=== PATIENT | female | born 1940 | race Caucasian/White ===

== ENCOUNTER 2017-03-10 14:47 | Emergency (ER) | payer OTHER, MEDICARE ==
[~2017-03-10] VITALS: Ht 152.4 cm; Wt 53.0 kg
[~2017-03-10 14:47] MED LIST: ADVA115A PO; ALBU8I INH; ASPI81TA82 PO; ATOR10TA PO; CEFU1TAB42 PO; FURO20 PO; METO25 PO; POTA-243 PO; PRED10PA PO; PRIN5TAB PO; RANI150T PO; THYROID PILL PO; Z.0.OXYGEN INH; [UNRECOGNIZED DRUG - CODE] NEB
[2017-03-10 14:50] VITALS: BP 130/58; PULSE 85; RESP 18; TEMP 97.8; O2SAT 93
[2017-03-10] MEDS ORDERED: LISI-519 PO (15:21)
[2017-03-10] MEDS ORDERED: POTA10CA PO (15:21)
[2017-03-10] MEDS ORDERED: METO25TA3 PO (15:21)
[2017-03-10] MEDS ORDERED: FURO20TA PO (15:21)
[2017-03-10] MEDS ORDERED: ASPI81CH CHEW (15:21)
[2017-03-10] MEDS ORDERED: ATOR20TA15 PO (15:21)
[2017-03-10] MEDS ORDERED: RANI150T PO (15:21)
[2017-03-10] MEDS ORDERED: VENTAER INH (15:21)
[2017-03-10] MEDS ORDERED: ADVA115A INH (15:21)
[2017-03-10 15:29] VITALS: O2SAT 98
[2017-03-10] MEDS ORDERED: SODIUM CHLORIDE 0.9% FLUSH 10 ML FLUSH IVF PRN (15:30)
[2017-03-10] MEDS ORDERED: RESP: ALBUTEROL 2.5 MG/IPRATROPIUM 0.5 MG NEB (SCH) INH ONE (15:30)
[2017-03-10] MEDS ORDERED: methylPREDNISolone SOD SUCC 125 MG/2 ML VIAL IVP ONE (15:30)
[2017-03-10 15:35] VITALS: BP 130/56; PULSE 69; RESP 20; O2SAT 99
--- NOTE | 2017-03-10 15:38 | PD ---
HPI Chief Complaint: Respiratory Symptoms Time Seen by Provider: 15:11 Travel History International Travel<30 days: No Contact w/Intl Traveler<30days: No Traveled to known affect area: No History of Present Illness HPI The patient is 77 years old. She complains of shortness of breath. Orthopnea is reported. Dyspnea on exertion is reported. A chronic cough is reported. She has no chest pain. She's had no fever. She has COPD and uses oxygen at times. She reports a history of CHF and reports using "a water pill." Compliance with medications is reported. She was seen by Dr. Novak this morning and an echocardiogram was done however she does not know the results. She was advised to come to the ER by Dr. Novak. She states she is worried about a CHF exacerbation. PFSH Past Medical History Arthritis: Yes Asthma: No Autoimmune Disease: No Anxiety: No Depression: No Heart Rhythm Problems: No Cancer: No Cardiovascular Problems: Yes (HIGH CHOLERSTEROL) High Cholesterol: Yes Chest Pain: No Congestive Heart Failure: Yes COPD: Yes (2L O2 dependent at home) Cerebrovascular Accident: No Coronary Artery Disease: No Diabetes: No Diminished Hearing: Yes ([place]) Endocrine: No Gastrointestinal Disorders: Yes GERD: Yes Genitourinary: No Hiatal Hernia: No Immune Disorder: No Musculoskeletal: Yes Neurologic: Yes Psychiatric: No Reproductive: No Respiratory: Yes (COPD) Migraines: No Seizures: No Sickle Cell Disease: No Sleep Apnea: No Thyroid Disease: Yes Ulcer: No Menopausal: Yes Past Surgical History Abdominal Surgery: Yes (APPENDIX, GALL BLADDER) AICD: No Appendectomy: Yes Arteriovenous Shunt: No Cardiac Surgery: Yes (bilateral leg veins stripped) Cholecystectomy: Yes Ear Surgery: No Endocrine Surgery: No Eye Surgery: Yes (EYE SURGERY A CHILD, cataracts) Genitourinary Surgery: Yes (BLADDER REPAIR) Gynecologic Surgery: Yes (TUBAL) Insulin Pump: No Joint Replacement: No Oral Surgery: Yes (TONSILS REMOVED) Pacemaker: No Thoracic Surgery: No Tonsillectomy: Yes Other Surgery: Yes Social History Alcohol Use: No Tobacco Use: Yes (07/27 PPD) Substance Use: No Allergies-Medications (Allergen,Severity, Reaction): Coded Allergies: tetanus toxoid, adsorbed (Unverified Allergy, Intermediate, RASH, 03/10/17) shellfish derived (Verified Allergy, Unknown, 03/10/17) Uncoded Allergies: MUSCLE RELAXERS (Allergy, Intermediate, RASH, 11/19/14) . Reported Meds & Prescriptions Reported Meds & Active Scripts Active Prednisone 20 Mg Tab 60 Mg PO DAILY 3 Days Reported Advair Hfa 12 GM Inh (Fluticasone-Salmeterol 12 GM Inh) 115-21 Mcg/Act Aer 2 Puff INH BID Ventolin Hfa 18 GM Inh (Albuterol Sulfate) 90 Mcg/Act Aer 1 Puff INH Q4H PRN Potassium Chloride ER (Potassium Chloride) 10 Meq Cap 10 Meq PO DAILY Atorvastatin (Atorvastatin Calcium) 20 Mg Tab 20 Mg PO BID Metoprolol Tartrate 25 Mg Tab 12.5 Mg PO BID Aspirin 81 Mg Chew 81 Mg CHEW DAILY Ranitidine (Ranitidine HCl) 150 Mg Tab 150 Mg PO DAILY Furosemide 20 Mg Tab 20 Mg PO DAILY Lisinopril 5 Mg Tab 5 Mg PO DAILY Review of Systems Except as stated in HPI: all other systems reviewed are Neg Physical Exam Narrative GENERAL: 77-year-old female well-nourished well-developed no acute distress SKIN: Warm and dry. HEAD: Atraumatic. Normocephalic. EYES: Pupils equal and round. No scleral icterus. No injection or drainage. ENT: No nasal bleeding or discharge. Mucous membranes pink and moist. NECK: Trachea midline. No JVD. CARDIOVASCULAR: Regular rate and rhythm. RESPIRATORY: Minimal wheezing. Coarse breath sounds at the bases. GASTROINTESTINAL: Abdomen soft, non-tender, nondistended. Hepatic and splenic margins not palpable. MUSCULOSKELETAL: Extremities without clubbing, cyanosis, or edema. No obvious deformities. NEUROLOGICAL: Awake and alert. No obvious cranial nerve deficits. Motor grossly within normal limits. Five out of 5 muscle strength in the arms and legs. Normal speech. PSYCHIATRIC: Appropriate mood and affect; insight and judgment normal. Data Data Last Documented VS Vital Signs Date Time Temp Pulse Resp B/P Pulse Ox O2 Delivery O2 Flow Rate FiO2 03/10/17 16:37 68 20 133/64 97 Nasal Cannula 2 03/10/17 14:50 97.8 VS reviewed Orders Complete Blood Count With Diff (03/10/17 15:24) Basic Metabolic Panel (Bmp) (03/10/17 15:24) B-Type Natriuretic Peptide (03/10/17 15:24) Ckmb (Isoenzyme) Profile (03/10/17 15:24) Troponin I (03/10/17 15:24) Iv Access Insert/Monitor (03/10/17 15:24) Electrocardiogram (03/10/17 15:24) Ecg Monitoring (03/10/17 15:24) Oximetry (03/10/17 15:24) Oxygen Administration (03/10/17 15:24) Chest, Single Ap (03/10/17 15:24) Sodium Chloride 0.9% Flush (Ns Flush) (03/10/17 15:30) Methylprednisolone So Succ Inj (Solumedr (03/10/17 15:30) Albuterol-Ipratropium Neb (Duoneb Neb) (03/10/17 15:30) Labs Laboratory Tests Test 03/10/17 15:30 White Blood Count 7.8 TH/MM3 Red Blood Count 4.49 MIL/MM3 Hemoglobin 12.0 GM/DL Hematocrit 36.6 % Mean Corpuscular Volume 81.5 FL Mean Corpuscular Hemoglobin 26.8 PG Mean Corpuscular Hemoglobin 32.9 % Concent Red Cell Distribution Width 12.1 % Platelet Count 248 TH/MM3 Mean Platelet Volume 7.6 FL Neutrophils (%) (Auto) 59.1 % Lymphocytes (%) (Auto) 23.9 % Monocytes (%) (Auto) 8.6 % Eosinophils (%) (Auto) 7.5 % Basophils (%) (Auto) 0.9 % Neutrophils # (Auto) 4.5 TH/MM3 Lymphocytes # (Auto) 1.9 TH/MM3 Monocytes # (Auto) 0.7 TH/MM3 Eosinophils # (Auto) 0.6 TH/MM3 Basophils # (Auto) 0.1 TH/MM3 CBC Comment DIFF FINAL Differential Comment Sodium Level 137 MEQ/L Potassium Level 4.5 MEQ/L Chloride Level 102 MEQ/L Carbon Dioxide Level 31.1 MEQ/L Anion Gap 4 MEQ/L Blood Urea Nitrogen 20 MG/DL Creatinine 0.82 MG/DL Estimat Glomerular Filtration 67 ML/MIN Rate Random Glucose 86 MG/DL Calcium Level 8.3 MG/DL Total Creatine Kinase 90 U/L Troponin I LESS THAN 0.02 NG/ML B-Type Natriuretic Peptide 60 PG/ML MDM Medical Decision Making Medical Screen Exam Complete: Yes Emergency Medical Condition: Yes Medical Record Reviewed: Yes Differential Diagnosis NSTEMI, unstable angina, coronary vasospasm, PE, PTX, aortic dissection, pericarditis, myocarditis, endocarditis, PNA, esophageal disease, aneurysm, musculoskeletal etiologies, anxiety, cocaine/sympathomimetic abuse Narrative Course The orders were placed for a CHF and COPD evaluation at that time of ER evaluation. The oncoming provider will follow-up and disposition the patient appropriately. Scripts Prednisone 20 Mg Tab60 Mg PO DAILY 3 Days Ref 0 Prov:Adeel Downing MD 03/10/17 Jose Alfredo Ramsey MD Mar 10, 2017 15:38
[2017-03-10 15:41] LABS: AUTOMATED NEUTROPHIL # 4.5 TH/MM3 (1.8-7.7); BASOPHIL # 0.1 TH/MM3 (0-0.2); BASOPHIL % 0.9 % (0.0-2.0); EOSINOPHIL # 0.6 TH/MM3 (0-0.4); EOSINOPHIL % 7.5 % (0.0-4.0); HEMATOCRIT 36.6 % (35.0-46.0); HEMO FLAGS DIFF FINAL; LYMPH % 23.9 % (9.0-44.0); LYMPHOCYTE # 1.9 TH/MM3 (1.0-4.8); MEAN CELL VOLUME 81.5 FL (80.0-100.0); MEAN CORPUSCULAR HEMOGLOBIN 26.8 PG (27.0-34.0); MEAN CORPUSCULAR HGB CONC 32.9 % (32.0-36.0); MONO % 8.6 % (0.0-8.0); NEUT % 59.1 % (16.0-70.0); PLATELET COUNT 248 TH/MM3 (150-450); RED BLOOD COUNT 4.49 MIL/MM3 (4.00-5.30); RED CELL DISTRIBUTION WIDTH 12.1 % (11.6-17.2); WHITE BLOOD COUNT 7.8 TH/MM3 (4.0-11.0)
[2017-03-10 15:50] LABS: CHLORIDE 102 MEQ/L (98-107); POTASSIUM 4.5 MEQ/L (3.5-5.1); SODIUM (NA) 137 MEQ/L (136-145)
[2017-03-10 15:53] LABS: ANION GAP 4 MEQ/L (5-15); BICARBONATE 31.1 MEQ/L (21.0-32.0); BLOOD UREA NITROGEN 20 MG/DL (7-18)
--- NOTE | 2017-03-10 15:53 | RADRPT ---
EXAM DATE/TIME: 03/10/2017 15:47 [facility] COMPARISON: CHEST SINGLE AP, April 10, 2016, 9:26. INDICATIONS : Shortness of breath. MEDICAL HISTORY : Chronic obstructive pulmonary disease. Congestive heart failure. SURGICAL HISTORY : None. ENCOUNTER: Initial ACUITY: 1 day PAIN SCORE: 0/10 LOCATION: Bilateral chest FINDINGS: There is mild interstitial prominence with minimal cardiomegaly. There is no pleural effusion or pne umothorax. 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 CONCLUSION: Mild interstitial prominence. eKvan Feliciano MD FACR on March 10, 2017 at 15:51 Board Certified Radiologist. This report was verified electronically.
[2017-03-10 15:56] LABS: GLOMERULAR FILTRATION RATE 67 ML/MIN (>89)
[2017-03-10 16:01] LABS: CREATINE KINASE 90 U/L (26-192)
[2017-03-10 16:37] VITALS: BP 133/64; PULSE 68; RESP 20; O2SAT 97
[2017-03-10] MEDS ORDERED: PRED20 PO (16:55)
--- NOTE | 2017-03-10 16:56 | PD ---
Physical Exam Date Seen by Provider: Mar 10, 2017 Time Seen by Provider: 16:53 Narrative 77-year-old female had presented with complaint of shortness of breath. She was seen by Dr. Arredondo. She has been treated with DuoNeb's and Solu-Medrol. She says she is feeling well at this time. She does have a history of COPD. She also sees Dr. Novak for cardiac issues. A chest x-ray shows some interstitial prominence. Her BNP is 60. She has received Solu-Medrol. She says that she does do well with prednisone. I will prescribe prednisone for the next 2 days. She also has inhalers that she uses Data Data Last Documented VS Vital Signs Date Time Temp Pulse Resp B/P Pulse Ox O2 Delivery O2 Flow Rate FiO2 03/10/17 16:37 68 20 133/64 97 Nasal Cannula 2 03/10/17 14:50 97.8 Orders Complete Blood Count With Diff (03/10/17 15:24) Basic Metabolic Panel (Bmp) (03/10/17 15:24) B-Type Natriuretic Peptide (03/10/17 15:24) Ckmb (Isoenzyme) Profile (03/10/17 15:24) Troponin I (03/10/17 15:24) Iv Access Insert/Monitor (03/10/17 15:24) Electrocardiogram (03/10/17 15:24) Ecg Monitoring (03/10/17 15:24) Oximetry (03/10/17 15:24) Oxygen Administration (03/10/17 15:24) Chest, Single Ap (03/10/17 15:24) Sodium Chloride 0.9% Flush (Ns Flush) (03/10/17 15:30) Methylprednisolone So Succ Inj (Solumedr (03/10/17 15:30) Albuterol-Ipratropium Neb (Duoneb Neb) (03/10/17 15:30) Labs Laboratory Tests Test 03/10/17 15:30 White Blood Count 7.8 TH/MM3 Red Blood Count 4.49 MIL/MM3 Hemoglobin 12.0 GM/DL Hematocrit 36.6 % Mean Corpuscular Volume 81.5 FL Mean Corpuscular Hemoglobin 26.8 PG Mean Corpuscular Hemoglobin 32.9 % Concent Red Cell Distribution Width 12.1 % Platelet Count 248 TH/MM3 Mean Platelet Volume 7.6 FL Neutrophils (%) (Auto) 59.1 % Lymphocytes (%) (Auto) 23.9 % Monocytes (%) (Auto) 8.6 % Eosinophils (%) (Auto) 7.5 % Basophils (%) (Auto) 0.9 % Neutrophils # (Auto) 4.5 TH/MM3 Lymphocytes # (Auto) 1.9 TH/MM3 Monocytes # (Auto) 0.7 TH/MM3 Eosinophils # (Auto) 0.6 TH/MM3 Basophils # (Auto) 0.1 TH/MM3 CBC Comment DIFF FINAL Differential Comment Sodium Level 137 MEQ/L Potassium Level 4.5 MEQ/L Chloride Level 102 MEQ/L Carbon Dioxide Level 31.1 MEQ/L Anion Gap 4 MEQ/L Blood Urea Nitrogen 20 MG/DL Creatinine 0.82 MG/DL Estimat Glomerular Filtration 67 ML/MIN Rate Random Glucose 86 MG/DL Calcium Level 8.3 MG/DL Total Creatine Kinase 90 U/L Troponin I LESS THAN 0.02 NG/ML B-Type Natriuretic Peptide 60 PG/ML [facility] Medical Record Reviewed: No Supervised Visit with DEVORA: No Differential Diagnosis Differential includes CHF, COPD, pneumonia Narrative Course X-rays negative for CHF and her BNP is normal. This is a COPD exacerbation. Diagnosis Primary Impression: Chronic obstructive pulmonary disease with acute exacerbation Scripts Prednisone 20 Mg Tab60 Mg PO DAILY 3 Days Ref 0 Prov:Adeel Downing MD 03/10/17 Disposition: 01 DISCHARGE HOME Condition: Stable Adeel Downing MD Mar 10, 2017 16:56
--- NOTE | 2017-03-11 15:41 | EKG ---
Date Performed: 03/10/2017 Time Performed: 15:40:56 PTAGE: 77 years EKG: Sinus rhythm LEFT BUNDLE BRANCH BLOCK Compared to prior tracing no significant change ABNORMAL ECG PREVIOUS TRACING : 04/10/2016 08.45 DOCTOR: Alberto Armendariz Interpretating Date/Time 03/11/2017 15:40:55
== END 2017-03-10 17:15 | disposition home or self-care (01) ==
LOC: PHED 14:47
DX: J44.1 Chronic obstructive pulmonary disease with (acute) exacerbation (principal); R94.31 Abnormal electrocardiogram [ECG] [EKG]; E07.9 Disorder of thyroid, unspecified; E78.00 Pure hypercholesterolemia, unspecified; H91.90 Unspecified hearing loss, unspecified ear; F17.200 Nicotine dependence, unspecified, uncomplicated; Z99.81 Dependence on supplemental oxygen; Z87.09 Personal history of other diseases of the respiratory system; Z86.79 Personal history of other diseases of the circulatory system; Z87.19 Personal history of other diseases of the digestive system; Z87.39 Personal history of other diseases of the musculoskeletal system and connective tissue; Z86.69 Personal history of other diseases of the nervous system and sense organs
CPT/HCPCS: 71010; 80048; 82550; 83880; 84484; 85025; 93005; 94664; 96374; 99285; J2930

== ENCOUNTER 2017-04-15 14:55 | Emergency (ER) | payer MEDICARE, OTHER ==
[~2017-04-15] VITALS: Ht 149.9 cm; Wt 53.8 kg
[~2017-04-15 14:55] MED LIST changes: +ADVA115A INH; -ADVA115A PO; -ALBU8I INH; +ASPI81CH CHEW; -ASPI81TA82 PO; -ATOR10TA PO; +ATOR20TA15 PO; -CEFU1TAB42 PO; -FURO20 PO; +FURO20TA PO; +LISI-519 PO; -METO25 PO; +METO25TA3 PO; -POTA-243 PO; +POTA10CA PO; -PRED10PA PO; +PRED20 PO; -PRIN5TAB PO; -THYROID PILL PO; +VENTAER INH; -Z.0.OXYGEN INH; -[UNRECOGNIZED DRUG - CODE] NEB
[2017-04-15 15:00] VITALS: BP 168/61; PULSE 85; RESP 26; TEMP 97.5; O2SAT 88
[2017-04-15] MEDS ORDERED: ALBU0.63 NEB (15:05)
--- NOTE | 2017-04-15 15:09 | PD ---
HPI Chief Complaint: Respiratory Symptoms Time Seen by Provider: 15:06 Travel History International Travel<30 days: No Contact w/Intl Traveler<30days: No Traveled to known affect area: No History of Present Illness HPI 77-year-old female with history of COPD, hypertension, CHF, currently on Lasix, presents to the ER today for several days history of coughing and shortness of breath, worsens with laying down, has noticed leg edema. She denies any fevers , or other symptoms. She states it feels like her previous CHF exacerbation. Modifying Factors: Worse with laying down Associated Signs & Symptoms: Coughing, shortness of breath Risk Factors: COPD, CHF PFSH Past Medical History Arthritis: Yes Asthma: No Autoimmune Disease: No Anxiety: No Depression: No Heart Rhythm Problems: No Cancer: No Cardiovascular Problems: Yes (HIGH CHOLERSTEROL) High Cholesterol: Yes Chest Pain: No Congestive Heart Failure: Yes COPD: Yes (2L O2 dependent at home) Cerebrovascular Accident: No Coronary Artery Disease: No Diabetes: No Diminished Hearing: Yes ([place]) Endocrine: No Gastrointestinal Disorders: Yes GERD: Yes Genitourinary: No Hiatal Hernia: No Immune Disorder: No Musculoskeletal: Yes Neurologic: Yes Psychiatric: No Reproductive: No Respiratory: Yes (COPD) Migraines: No Seizures: No Sickle Cell Disease: No Sleep Apnea: No Thyroid Disease: Yes Ulcer: No ?: Not Menopausal: Yes Past Surgical History Abdominal Surgery: Yes (APPENDIX, GALL BLADDER) AICD: No Appendectomy: Yes Arteriovenous Shunt: No Cardiac Surgery: Yes (bilateral leg veins stripped) Cholecystectomy: Yes Ear Surgery: No Endocrine Surgery: No Eye Surgery: Yes (EYE SURGERY A CHILD, cataracts) Genitourinary Surgery: Yes (BLADDER REPAIR) Gynecologic Surgery: Yes (TUBAL) Insulin Pump: No Joint Replacement: No Oral Surgery: Yes (TONSILS REMOVED) Pacemaker: No Thoracic Surgery: No Tonsillectomy: Yes Other Surgery: Yes Social History Alcohol Use: No Tobacco Use: Yes (07/27 PPD) Substance Use: No Allergies-Medications (Allergen,Severity, Reaction): Coded Allergies: tetanus toxoid, adsorbed (Unverified Allergy, Intermediate, RASH, 04/15/17) shellfish derived (Verified Allergy, Unknown, 04/15/17) Uncoded Allergies: MUSCLE RELAXERS (Allergy, Intermediate, RASH, 4/29/15) . Reported Meds & Prescriptions Reported Meds & Active Scripts Active Proventil Hfa 6.7 GM Inh (Albuterol Sulfate) 90 Mcg/Act Aer 2 Puff INH Q4-6H PRN Prednisone 50 Mg Tab 50 Mg PO DAILY 5 Days Reported Albuterol Neb (Albuterol Sulfate) 0.63 Mg/3 Ml Neb 0.63 Mg NEB Q6HR NEB PRN Advair Hfa 12 GM Inh (Fluticasone-Salmeterol 12 GM Inh) 115-21 Mcg/Act Aer 2 Puff INH BID Ventolin Hfa 18 GM Inh (Albuterol Sulfate) 90 Mcg/Act Aer 1 Puff INH Q4H PRN Potassium Chloride ER (Potassium Chloride) 10 Meq Cap 10 Meq PO DAILY Atorvastatin (Atorvastatin Calcium) 20 Mg Tab 20 Mg PO BID Metoprolol Tartrate 25 Mg Tab 12.5 Mg PO BID Aspirin 81 Mg Chew 81 Mg CHEW DAILY Ranitidine (Ranitidine HCl) 150 Mg Tab 150 Mg PO DAILY Furosemide 20 Mg Tab 20 Mg PO DAILY Lisinopril 5 Mg Tab 5 Mg PO DAILY Review of Systems Except as stated in HPI: all other systems reviewed are Neg Physical Exam Narrative GENERAL: Well-developed elderly white female patient currently in mild respiratory distress. Awake and oriented 3. SKIN: Focused skin assessment warm/dry. HEAD: Atraumatic. Normocephalic. EYES: Pupils equal and round. No scleral icterus. No injection or drainage. ENT: No nasal bleeding or discharge. Mucous membranes pink and moist. NECK: Trachea midline. No JVD. CARDIOVASCULAR: Regular rate and rhythm. No murmur appreciated. RESPIRATORY: No accessory muscle use. Mild wheezing bilaterally, decreased at the bases. Breath sounds equal bilaterally. GASTROINTESTINAL: Abdomen soft, non-tender, nondistended. Hepatic and splenic margins not palpable. MUSCULOSKELETAL: No obvious deformities. No clubbing. No cyanosis. No edema. NEUROLOGICAL: Awake and alert. No obvious cranial nerve deficits. Motor grossly within normal limits. Normal speech. PSYCHIATRIC: Appropriate mood and affect; insight and judgment normal. Data Data Last Documented VS Vital Signs Date Time Temp Pulse Resp B/P (MAP) Pulse Ox O2 Delivery O2 Flow Rate FiO2 04/15/17 16:29 72 18 117/57 (77) 97 Nasal Cannula 2.00 04/15/17 15:00 97.5 Orders Orders Complete Blood Count With Diff (04/15/17 15:06) Basic Metabolic Panel (Bmp) (04/15/17 15:06) B-Type Natriuretic Peptide (04/15/17 15:06) Iv Access Insert/Monitor (04/15/17 15:06) Ecg Monitoring (04/15/17 15:06) Oximetry (04/15/17 15:06) Oxygen Administration (04/15/17 15:06) Chest, Single Ap (04/15/17 15:06) Sodium Chloride 0.9% Flush (Ns Flush) (04/15/17 15:15) Albuterol-Ipratropium Neb (Duoneb Neb) (04/15/17 15:15) Furosemide Inj (Lasix Inj) (04/15/17 16:30) Prednisone (Deltasone) (04/15/17 16:30) Labs Laboratory Tests Test 04/15/17 15:35 White Blood Count 7.3 TH/MM3 Red Blood Count 4.79 MIL/MM3 Hemoglobin 12.2 GM/DL Hematocrit 38.3 % Mean Corpuscular Volume 79.9 FL Mean Corpuscular Hemoglobin 25.5 PG Mean Corpuscular Hemoglobin Concent 31.9 % Red Cell Distribution Width 12.3 % Platelet Count 256 TH/MM3 Mean Platelet Volume 7.9 FL Neutrophils (%) (Auto) 57.7 % Lymphocytes (%) (Auto) 24.7 % Monocytes (%) (Auto) 9.0 % Eosinophils (%) (Auto) 7.8 % Basophils (%) (Auto) 0.8 % Neutrophils # (Auto) 4.1 TH/MM3 Lymphocytes # (Auto) 1.8 TH/MM3 Monocytes # (Auto) 0.7 TH/MM3 Eosinophils # (Auto) 0.6 TH/MM3 Basophils # (Auto) 0.1 TH/MM3 CBC Comment DIFF FINAL Differential Comment Blood Urea Nitrogen 14 MG/DL Creatinine 0.69 MG/DL Random Glucose 78 MG/DL Calcium Level 8.9 MG/DL Sodium Level 138 MEQ/L Potassium Level 4.7 MEQ/L Chloride Level 100 MEQ/L Carbon Dioxide Level 33.9 MEQ/L Anion Gap 4 MEQ/L Estimat Glomerular Filtration Rate 82 ML/MIN B-Type Natriuretic Peptide 54 PG/ML MDM Medical Decision Making Medical Screen Exam Complete: Yes Emergency Medical Condition: Yes Medical Record Reviewed: Yes Interpretation(s) Laboratory Tests Test 04/15/17 15:35 Mean Corpuscular Volume 79.9 FL (80.0-100.0) Mean Corpuscular Hemoglobin 25.5 PG (27.0-34.0) Mean Corpuscular Hemoglobin Concent 31.9 % (32.0-36.0) Monocytes (%) (Auto) 9.0 % (0.0-8.0) Eosinophils (%) (Auto) 7.8 % (0.0-4.0) Eosinophils # (Auto) 0.6 TH/MM3 (0-0.4) Carbon Dioxide Level 33.9 MEQ/L (21.0-32.0) Anion Gap 4 MEQ/L (5-15) Estimat Glomerular Filtration Rate 82 ML/MIN (>89) Last 24 hours Impressions Chest X-Ray 04/15/17 1506 Signed Impressions: Service Date/Time: Monday, April 15, 2017 15:23 - CONCLUSION: No acute disease. Zurdo Moss MD Differential Diagnosis Coughing, wheezing, shortness of breath: CHF exacerbation versus COPD exacerbation versus pneumonia Narrative Course Chest x-ray did not show any signs of acute processes. Patient was given albuterol in the ER with improvement symptoms. She was also given Lasix. At this point, I suspect that she may have some underlying COPD exacerbation. Mild CHF also been issue here. However, I do not see any signs of pneumonia or other acute pulmonary processes. My plan would be to give her further treatment for her COPD and follow-up to primary care doctor. Return for any worsening in symptoms as necessary. The plan has discussed with her and she states understanding. Diagnosis Primary Impression: Chronic obstructive pulmonary disease with acute exacerbation Med/Other Pt SpecificInfo: Prescription(s) given Scripts Albuterol 6.7 GM Inh (Proventil Hfa 6.7 GM Inh) 90 Mcg/Act Aer 2 PUFF INH Q4-6H Y for SHORTNESS OF BREATH, #1 INHALER 0 Refills Prov: Velia Senior MD 04/15/17 Prednisone (Prednisone) 50 Mg Tab 50 MG PO DAILY for 5 Days, #5 TAB 0 Refills Prov: Velia Senior MD 04/15/17 Disposition: 01 DISCHARGE HOME Condition: Stable Velia Senior MD Apr 15, 2017 15:09
[2017-04-15] MEDS ORDERED: SODIUM CHLORIDE 0.9% FLUSH 10 ML FLUSH IVF PRN (15:15)
[2017-04-15] MEDS ORDERED: RESP: ALBUTEROL 2.5 MG/IPRATROPIUM 0.5 MG NEB (SCH) INH ONE (15:15)
--- NOTE | 2017-04-15 15:34 | RADRPT ---
EXAM DATE/TIME: 04/15/2017 15:23 [facility] COMPARISON: CHEST SINGLE AP, March 10, 2017, 15:47. INDICATIONS : Shortness of breath. MEDICAL HISTORY : Chronic obstructive pulmonary disease. Congestive heart failure. SURGICAL HISTORY : None. ENCOUNTER: Initial ACUITY: 1 day PAIN SCORE: 0/10 LOCATION: Bilateral chest FINDINGS: A single view of the chest demonstrates the lungs to be symmetrically aerated without evidence of mas s, infiltrate or effusion. Mild atherosclerotic calcifications are again noted in the aorta. There ar e overlying electrocardiogram leads and oxygen tubing. 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 The cardiomediastinal contours are unremarkable. Osseous structures are int act. CONCLUSION: No acute disease. Zurdo Moss MD on April 15, 2017 at 15:33 Board Certified Radiologist. This report was verified electronically.
[2017-04-15 15:38] VITALS: BP 106/50; PULSE 80; RESP 20; O2SAT 97
[2017-04-15 16:00] LABS: AUTOMATED NEUTROPHIL # 4.1 TH/MM3 (1.8-7.7); BASOPHIL # 0.1 TH/MM3 (0-0.2); BASOPHIL % 0.8 % (0.0-2.0); EOSINOPHIL # 0.6 TH/MM3 (0-0.4); EOSINOPHIL % 7.8 % (0.0-4.0); HEMATOCRIT 38.3 % (35.0-46.0); HEMO FLAGS DIFF FINAL; LYMPH % 24.7 % (9.0-44.0); LYMPHOCYTE # 1.8 TH/MM3 (1.0-4.8); MEAN CELL VOLUME 79.9 FL (80.0-100.0); MEAN CORPUSCULAR HEMOGLOBIN 25.5 PG (27.0-34.0); MEAN CORPUSCULAR HGB CONC 31.9 % (32.0-36.0); NEUT % 57.7 % (16.0-70.0); PLATELET COUNT 256 TH/MM3 (150-450); RED BLOOD COUNT 4.79 MIL/MM3 (4.00-5.30); RED CELL DISTRIBUTION WIDTH 12.3 % (11.6-17.2); WHITE BLOOD COUNT 7.3 TH/MM3 (4.0-11.0)
[2017-04-15 16:09] LABS: POTASSIUM 4.7 MEQ/L (3.5-5.1)
[2017-04-15 16:12] LABS: BICARBONATE 33.9 MEQ/L (21.0-32.0)
[2017-04-15 16:29] VITALS: BP 117/57; PULSE 72; RESP 18; O2SAT 97
[2017-04-15] MEDS ORDERED: predniSONE 20 MG TAB PO ONE (16:30)
[2017-04-15] MEDS ORDERED: FUROSEMIDE 20 MG/2 ML VIAL IV PUSH ONE (16:30)
[2017-04-15] MEDS ORDERED: ALBU6.7H INH (16:31)
[2017-04-15] MEDS ORDERED: PRED50 PO (16:31)
== END 2017-04-15 16:44 | disposition home or self-care (01) ==
LOC: PHED 14:55
DX: J44.1 Chronic obstructive pulmonary disease with (acute) exacerbation (principal); F17.200 Nicotine dependence, unspecified, uncomplicated; I50.9 Heart failure, unspecified; I11.0 Hypertensive heart disease with heart failure
CPT/HCPCS: 71010; 80048; 83880; 85025; 94664; 96374; 99284; J1940; J7512

== ENCOUNTER 2017-04-18 06:06 | Day surgery (SDC) | payer OTHER ==
[~2017-04-18] VITALS: Ht 149.9 cm; Wt 56.9 kg
[2017-04-18] VITALS (14 sets, daily range): BP systolic 110–153; BP diastolic 54–79; PULSE 63–97; RESP 16–17; TEMP 97.6–98.2; O2SAT 94–99
[~2017-04-18 06:06] MED LIST changes: +ALBU0.63 NEB; +ALBU6.7H INH; -PRED20 PO; +PRED50 PO
[2017-04-18] MEDS ORDERED: Home Oxygen NAS.CANULA (06:31)
[2017-04-18] MEDS ORDERED: VANCOMYCIN HCL 1000 MG VIAL ONE (06:45)
[2017-04-18] MEDS ORDERED: SODIUM CHLOR 0.9% 250 ML INJ 250 ML ONE (06:45)
[2017-04-18] MEDS ORDERED: INSULIN HUMAN REGULAR 1,000 UNITS/10 ML VIAL SQ PRN (06:45)
[2017-04-18] MEDS ORDERED: POVIDONE IODINE 5% (ANTISEPSIS KIT) 4 APPLICATIONS EACH NARE SCH (06:45)
[2017-04-18] MEDS ORDERED: SODIUM CHLORID 0.9% 500 ML INJ 500 ML IV SCH (06:45)
[2017-04-18] MEDS ORDERED: SODIUM CHLORID 0.9% 500 ML IV PRN (06:45)
[2017-04-18] MEDS ORDERED: CHLORHEXIDINE GLUCONATE 2 % 1 PACK (2 CLOTHS) TOPICAL SCH (06:45)
[2017-04-18] MEDS ORDERED: CHLORHEXIDINE GLUCONATE 2 % 1 PACK (2 CLOTHS) TOPICAL PRN (06:45)
[2017-04-18] MEDS ORDERED: ceFAZolin 2 GM PREMIX 50 ML IV SCH (06:45)
[2017-04-18] MEDS ORDERED: POVIDONE IODINE 5% (ANTISEPSIS KIT) 4 APPLICATIONS EACH NARE PRN (06:45)
[2017-04-18] MEDS ORDERED: METOPROLOL TARTRATE 25 MG TAB PO PRN (06:45)
[2017-04-18] MEDS ORDERED: NS 1000 ML IV SCH (06:45)
[2017-04-18] MEDS ORDERED: LORazepam 1 MG TAB SL SCH (06:45)
[2017-04-18] MEDS ORDERED: LACTATED RINGER'S 1000 ML IV PRN (06:45)
[2017-04-18] MEDS ORDERED: MUPIROCIN 2% OINT 1 APPLIC/GM SYR NASAL SCH (06:45)
[2017-04-18] MEDS ORDERED: VANCOMYCIN 1,000 MG/NS 250 ML IV SCH ×2 (07:00)
[2017-04-18 07:20] LABS: AUTOMATED NEUTROPHIL # 6.2 TH/MM3 (1.8-7.7); BASOPHIL # 0.1 TH/MM3 (0-0.2); BASOPHIL % 0.5 % (0.0-2.0); EOSINOPHIL # 0.1 TH/MM3 (0-0.4); EOSINOPHIL % 0.6 % (0.0-4.0); HEMATOCRIT 37.1 % (35.0-46.0); HEMO FLAGS DIFF FINAL; LYMPH % 32.7 % (9.0-44.0); LYMPHOCYTE # 3.5 TH/MM3 (1.0-4.8); MEAN CELL VOLUME 81.6 FL (80.0-100.0); MEAN CORPUSCULAR HEMOGLOBIN 25.7 PG (27.0-34.0); MEAN CORPUSCULAR HGB CONC 31.5 % (32.0-36.0); MONO % 8.4 % (0.0-8.0); NEUT % 57.8 % (16.0-70.0); PLATELET COUNT 261 TH/MM3 (150-450); RED BLOOD COUNT 4.55 MIL/MM3 (4.00-5.30); RED CELL DISTRIBUTION WIDTH 13.3 % (11.6-17.2); WHITE BLOOD COUNT 10.8 TH/MM3 (4.0-11.0)
[2017-04-18 07:28] LABS: APTT (PATIENT) 22.9 SEC (24.3-30.1); INTERNATIONAL NORMALIZED RATIO 0.9 RATIO; PROTHROMBIN TIME - PATIENT 10.4 SEC (9.8-11.6)
[2017-04-18] MEDS ORDERED: MIDAZOLAM HCL 2 MG/2 ML VIAL ONE (07:33)
[2017-04-18] MEDS ORDERED: PROPOFOL 200 MG/20 ML AMP ONE ×2 (07:33→09:02)
[2017-04-18 07:34] LABS: POTASSIUM 4.1 MEQ/L (3.5-5.1)
[2017-04-18] MEDS ORDERED: ePHEDrine/NS 25 MG/5 ML SYR ONE (07:34)
[2017-04-18] MEDS ORDERED: PHENYLEPH/NS 1000 MCG/10 ML SYR ONE (07:34)
[2017-04-18] MEDS ORDERED: HEPARIN-NS/PF INJ 500 ML ONE (08:23)
--- NOTE | 2017-04-18 08:29 | CATHPROC ---
[employer] HIS Report Study Information Study Number Admission Scheduled Start Study Start [id number] Apr 18 2017 6:06AM 04/18/2017 Apr 18 2017 7:33AM [place] [facility] Cardiac Pacer/ICD Admit Source Facility Department Other [facility] - Telecommunications Linesworker Physician and Clinical Staff Initial Ling Koehler Solar Energy Technician Lula Zhang RCIS Solar Energy Technician Pat Pacheco,RT(R) TECH2 Other Anesthesia, METALLURGICAL OR MATERIALS TECHNICIAN Recorder Kathrin Ferro,ORACIO Scrub Ammon Balderas,RT(R) Equipment Time Computer Aided Design Drafter Description Size Mfg Part Number Used/Scraped [id number] 08:14 Evom[employer] INDUSTRIES PACK, CCL CUSTOM * Used *[id number] 08:14 Evomail PACER [place], LIMB * 2530 *[id number] Used [id number] 08:14 [facility] BLANKET,WARM AIR CCL * Used *[id number] 08:16 [employer] MEDICAL CATHETER, JSN, QUAD FR 5 Used *[id number] 08:16 [employer] MEDICAL CATHETER, JSN, QUAD FR 5 Used *[id number] 08:16 [employer] MEDICAL CATHETER, JSN, QUAD FR 5 Used *[id number] 08:16 [employer] MEDICAL CATHETER, JSN, QUAD FR 5 Used *[id number] 161289 08:15 [employer] MEDICAL SHEATH, EPS, FR5 FAST CATH FR 5 Used *[id number] [id number] 08:15 [employer] MEDICAL SHEATH, EPS, FR5 FAST CATH FR 5 Used *[id number] 08:15 [employer] MEDICAL SHEATH, EPS, FR5 FAST CATH FR 5 Used *[id number] 08:15 [employer] MEDICAL SHEATH, EPS, FR6 FAST CATH FR 6 Used *[id number] History: Allergies Allergy Reaction tetanus toxoid, adsorbed RASH shellfish derived MUSCLE RELAXERS RASH bupropion History: Risk Factors Hypertension Dyslipidemia Previous Heart Failure Yes Yes Yes Chronic Lung Disease Labs Hgb (g/dl) Hct (%) RBC (MIL/MM3) WBC (l/cumm) Platelets (thousands) 11.60-17.00 35.00-51.00 4.00-5.90 4.00-11.00 150.00-450.00 11.0 37 4.5 10.8 261 Glucose (mg/dl) BUN (mg/dl) Creatinine (mg/dl) BUN:Creatinine (1:x) 74.00-106.00 7.00-18.00 0.50-1.30 10.00-20.00 69 22 0.8 27.5 Na (meq/l) K (meq/l) 136.00-145.00 3.50-5.10 140 4.1 INR (PTT:PT) 0.90-1.10 0.9 Medication Medication Total Dose (Bolus/Oral) Medication Total Dosage/Unit 1% XYLOCAINE 20 mL Medications (Bolus/Oral) Medication Time Given Dosage/Unit Administered By Reason 1% XYLOCAINE 04/18/2017 8:12:27 AM 20 mL Ling Reyes 20 mL 1% XYLOCAINE given in lab by Ling Reyes in Right Groin via Subcutaneous. Initial Case Assessment Cardiovascular HR NIBP Chest Pain 75 139/60 0 Edema Present Skin color Skin None Normal Warm Dry Circulatory - Right Pulses Dorsalis Pedis 3 Scale (0,1,2,3,4,d) Circulatory - Left Pulses Dorsalis Pedis 3 Scale (0,1,2,3,4,d) Circulatory - Lower Extremities Color Lower Right Color Lower Left Normal Normal Neurological State Oriented to time-place- Alert Moves all extremities person Respiration - General Respiration Rate SpO2 (%) O2 (lpm) (B/min) 20 100 6 Chronological Log Time Study Chronological Log 7:30:34 Patient arrived via Bed. 7:30:39 Patient Name, D.O.B, / Armband Verified By R.N. 7:30:42 Anesthesia at bedside. Assumes care of patient. Logan 7:31:00 Consent signed by the physician and the patient and verified by the Telecommunications Linesworker staff. 7:31:30 Pre-op and post- op instructions given; patient acknowledges understanding of instructions. 7:31:54 Verbal Stimulation=2 Physical Stimulation=2 Airway=2 Respiration=2 TOTAL=8. (0=absent, 1=li mited, 2=present) 7:31:59 Patient has been NPO for More than 6Hrs. 7:32:20 Skin Breakdown- 7:33:24 Patient Warmer Placed on the Table. 7:33:25 Disposable Defibrillator Pads Placed On Patient. 7:33:35 A # 20 IV was noted in the Hand (right). Grade = 0 0.9ns kvo 7:33:39 A # 20 IV was noted in the Antecubital (left). Grade = 0 0.9ns kvo 7:34:00 History and physical on the chart or being dictated. 7:35:00 Table restraints applied according to hospital policy Assessment: Initial Case, HR=75 BPM, TQOL=995/60 mmhg, Chest Pain=0, Edema=None, Color=Normal, S kin = Warm, Dry Right Pulses: Neftali Ped=3 Left Pulses: Neftali Ped=3 7:55:04 Lower Right Extremities: Color=Normal Lower Left Extremities: Color=Normal Neurological: State=Alert, Ox3, ROSALES Respiration: Resp=20 B/min, NrR5=727 %, O2=6 lpm 7:56:51 Bilateral groins prepped with 2% chlorhexidine, and with a 3 min. waiting time. 7:57:00 MD paged 7:57:42 MD responded 8:04:28 Reference ECG taken 8:08:22 MD arrived. Time Out. Correct patient, procedure, procedure equipment, site and side verified with physician present. Time 8:11:04 concurred by MD, individual staff and METALLURGICAL OR MATERIALS TECHNICIAN. Time Out #2 - Consents verified, patient in correct position, all results are labled and display ed, safety precautions 8:11:29 taken, antibiotics administered. Time out concurred by MD, individual staff and METALLURGICAL OR MATERIALS TECHNICIAN in procedur e 8:11:55 Case Start 8:12:27 20 mL 1% XYLOCAINE given in lab by Ling Reyes in Right Groin via Subcutaneous. 8:13:19 Vascular access was obtained in the Fem Vein (right). 8:13:21 Vascular access was obtained in the Fem Vein (right). 8:13:24 Vascular access was obtained in the Fem Vein (right). 8:13:27 Vascular access was obtained in the Fem Vein (right). 8:13:46 A SHEATH, EPS, FR5 FAST CATH FR 5 was advanced into the Fem Vein (right) using the Modified Seldinger technique. 8:15:48 A SHEATH, EPS, FR5 FAST CATH FR 5 was advanced into the Fem Vein (right) using the Modified Seldinger technique. 8:15:52 A SHEATH, EPS, FR5 FAST CATH FR 5 was advanced into the Fem Vein (right) using the Modified Seldinger technique. 8:15:54 A SHEATH, EPS, FR6 FAST CATH FR 6 was advanced into the Fem Vein (right) using the Modified Seldinger technique. A CATHETER, JSN, QUAD FR 5 was advanced vis Fem Vein (right) and placed in the CS. Placement was visually 8:16:01 confirmed under fluoroscopy. A CATHETER, JSN, QUAD FR 5 was advanced vis Fem Vein (right) and placed in the HIS. Placement wa s visually 8:16:09 confirmed under fluoroscopy. A CATHETER, JSN, QUAD FR 5 was advanced vis Fem Vein (right) and placed in the RVA. Placement wa s visually 8:16:13 confirmed under fluoroscopy. A CATHETER, JSN, QUAD FR 5 was advanced vis Fem Vein (right) and placed in the HRA. Placement wa s visually 8:16:17 confirmed under fluoroscopy. 8:19:04 EPS in progress. 8:25:17 EPS complete. 8:25:43 EP Procedure was performed. 8:27:02 Catheters, except CS Quad, removed without difficulty. 8:27:14 Case End 8:27:30 Sheath(s) left in place, secured will be removed in Holding Area 8:28:19 NOTE: This patient is undergoing an additional procedure while still in the Cardiac Telecommunications Linesworker . 8:28:49 Cine recording checked. 8:28:52 No case complications noted. End Study - Contrast Media Used In Study Contrast Total Opened (mL) Total Used (mL) Total Wasted (mL) Unspecified 0 0 0 End Study - Maximum Contrast Load Max Contrast Load (mL) 331.8 End Study - Radiation Exposure Fluoro Time (minutes) 2.1 End Study - Patient Disposition Complications Transferred To Interventional Outcome No Telecommunications Linesworker Holding successful
[2017-04-18] MEDS ORDERED: VANCOMYCIN 500 MG VIAL ONE (08:32)
[2017-04-18] MEDS ORDERED: LIDOCAINE HCL 2% 50 ML VIAL ONE (08:32)
[2017-04-18] MEDS ORDERED: METOPROLOL TARTRATE 5 MG/5 ML VIAL ONE (09:51)
--- NOTE | 2017-04-18 10:02 | CATHPROC ---
[employer] [facility] HIS Report Study Information Study Number Admission Scheduled Start Study Start [id number] Apr 18 2017 6:06AM 04/18/2017 Apr 18 2017 8:30AM [place] Service Electrophysiology Study Admit Source Facility Department Other [facility] - Commanding Officer Homicide Squad Physician and Clinical Staff Initial Ling Koehler Jig Builder Helper Ammon Balderas,RT(R) Other Anesthesia, CERTIFIED NURSING ATTENDANT Recorder Kathrin Ferro,ORACIO Scrub Lula Zhang RCIS Procedures Performed Procedure Location (Site) Vessel Name Lead Insertion Venogram Coronary Sinus Other Wire insertion Coronary Sinus Other Equipment Time Business Education Instructor Description Size Mfg Part Number Used/Scraped [id number] 09:27 [facility] WIRE, ASAHI PROWATER 180CM 180CM Used *[id number] CATHETER, BIFURCATED 09:40 ANGIO-DYNAMICS FR 5 [id number] Used INFUSION BENEPHIT DERMABOND, ADHESIVE SKIN [id number] 08:37 CORDIS/PACER * Used GLUE MINI *[id number] [id number] 08:37 nChannel SUTURE, STRIP PLUS 1/2" * Used *[id number] 08:37 MEDLINE PACER [place], LIMB * 2530 *[id number] Used [id number] 08:37 [employer] PACER PACK, PACER CUSTOM * Used *[id number] 08:38 [employer]ily PACER SAFE SHEATH, FR7, 13CM FR 7 [id number] Used 08:38 [employer]ily PACER SAFE SHEATH, FR9, 13CM FR 9 [id number] Used 09:07 [facility] EHR MEDICAL PACER SAFE SHEATH, FR9, 13CM FR 9 [id number] Used 08:46 Needle Sponge Count 1 111 Used 08:46 Needle Sponge Count 20 200 Used 08:46 Needle Sponge Count 5 5 Used 09:26 [employer]COMED OMNIPAQUE, 300 MG, 50ML 50ML [id number] Used SUTURE, 0 ETHIBOND [CT1] (CX21D), 8pk SUTURE, 2-0 VICRYL [CT1] ([id number]) SUTURE, 2-0 VICRYL [CT1] (PWE293B) [id number] 08:37 [facility] BLANKET,WARM AIR CCL * Used *[id number] 09:24 [facility] [employer] MEDICAL LIVEWIRE, QUAD, MED SWEEP FR 6 [id number] Used [facility] PAD, ELECTROSURGICAL 08:37 * [id number] *[id number] Used SURGICAL GROUNDING ORANGE LEAD, ATTAIN PERFORMA 09:32 VITATRON MEDTRONIC 88CM 4398-88CM Used STRAIGHT, 88CM LEAD, CAPSURE FIX NOVUS, 4076-45CM 09:16 VIT[employer]RON MEDTRONIC 45CM Used 45CM *[id number] LEAD, SPRINT QUATTRO SECURE [id number] 09:10 VIT[employer]RON MEDTRONIC 62CM Used S 62CM *[id number] PACEMAKER, AMPLIA MRI WOOL WASHER-D 09:40 VIT[employer]RON MEDTRONIC DDEDDDDR [id number] Used SURESCAN [id number] 08:37 SportID GUMARO. ELECTRODE, PRO-PADZ BIPHASIC * Used *[id number] Equipment Model, Serial, Lot Number and Expiration Data Description Model Number Serial Number Lot Number Expiration Date LEAD, ATTAIN PERFORMA 4398-88 [id number] 12-13-2018 STRAIGHT, 88CM LEAD, CAPSURE FIX NOVUS, 45CM 4076-52 [id number] 01-05-2019 LEAD, SPRINT QUATTRO SECURE S 6935-62 [id number] 01-31-2019 62CM PACEMAKER, AMPLIA MRI WOOL WASHER-D [id number] 06-06-2018 SURESCAN Medication Medication Total Dose (Bolus/Oral) Medication Total Dosage/Unit 2% XYLOCAINE 50 mL Medications (Bolus/Oral) Medication Time Given Dosage/Unit Administered By Reason 2% XYLOCAINE 04/18/2017 9:01:23 AM 50 mL Ling Reyes 50 mL 2% XYLOCAINE given in lab by Ling Reyes in Left upper chest via Subcutaneous. Ordered by Ling Torrez. Medication (Drip) Medication Time Given Dosage/Unit Concentration/Unit Diluent (ml) Solution ANCEF 04/18/2017 7:45:17 AM 2 g 2 g ANCEF given in lab by Anesthesia, CERTIFIED NURSING ATTENDANT via Peripheral IV. Ordered by Ling Reyes. Reason: As pe r physicians verbal order. VANCOMYCIN DRIP 04/18/2017 7:45:00 AM 1 g 1 g VANCOMYCIN DRIP given in lab by Anesthesia, CERTIFIED NURSING ATTENDANT via Peripheral IV. Ordered by Ling Reyes. Sarah son: As per physicians verbal order. Final Case Assessment Cardiovascular HR Rhythm NIBP Chest Pain 85 evp marketing 101/52 0 Edema Present Skin color Skin None Normal Warm Dry Circulatory - Right Pulses Dorsalis Pedis 3 Scale (0,1,2,3,4,d) Circulatory - Left Pulses Dorsalis Pedis 3 Scale (0,1,2,3,4,d) Circulatory - Lower Extremities Color Lower Right Color Lower Left Normal Normal Neurological State Oriented to time-place- Lethargic Moves all extremities person Respiration - General Respiration Rate SpO2 (%) O2 (lpm) (B/min) 16 100 6 Chronological Log Time Study Chronological Log 1 g VANCOMYCIN DRIP given in lab by Anesthesia, CERTIFIED NURSING ATTENDANT via Peripheral IV. Ordered by Ling Reyes . Reason: As per 7:45:00 physicians verbal order. 2 g ANCEF given in lab by Anesthesia, CERTIFIED NURSING ATTENDANT via Peripheral IV. Ordered by Ling Reyes. Reason: As per physicians 7:45:17 verbal order. 8:28:00 Initial procedure has been completed. Beginning additional procedure. 8:28:48 NOTE: This patient is undergoing an additional procedure while still in the Cardiac Commanding Officer Homicide Squad . 8:30:04 Anesthesia remains at bedside. Assuming care of patient. 8:30:17 2% CHLORHEXIDINE GLUCONATE WASH AND NASAL SWIPE DONE PRIOR TO PROCEDURE. 8:30:34 Bovie ground pad applied to: right thigh 8:32:39 Upper Chest Prepped Times Two. 8:38:27 Reference ECG taken First Sponge And Instrument Count Done by Ammon Balderas, RT(R). 8:45:45 Hypo's: 5, Sponges: 20, Bovie/scratch: 1 Sutures: 10, Blades: 1, Instruments: 26, Syveck Patches: 0 verified w DC. Time Out. Correct patient, procedure, procedure equipment, site and side verified with physician present. Time 9:01:19 concurred by MD, individual staff and CERTIFIED NURSING ATTENDANT. Time Out #2 - Consents verified, patient in correct position, all results are labled and display ed, safety precautions 9:01:20 taken, antibiotics administered. Time out concurred by , individual staff and CERTIFIED NURSING ATTENDANT in procedur e 9:01:21 Case Start 9:01:23 50 mL 2% XYLOCAINE given in lab by Ling Reyes in Left upper chest via Subcutaneous. Order ed by Ling Reyes. 9:03:38 Vascular access was obtained in the Subclav. Vein (Lft. 9:03:44 Wire inserted 9:04:52 Vascular access was obtained in the Subclav. Vein (Lft. 9:04:54 Wire inserted 9:05:53 Vascular access was obtained in the Subclav. Vein (Lft. 9:05:54 Wire inserted 9:09:27 Surgical Incision Made. 9:13:15 A SAFE SHEATH, FR7, 13CM FR 7 was advanced into the Subclav. Vein (Lft using the Modified Se ldinger technique. 9:13:28 A SAFE SHEATH, FR9, 13CM FR 9 was advanced into the Subclav. Vein (Lft using the Modified Se ldinger technique. 9:13:32 A SAFE SHEATH, FR9, 13CM FR 9 was advanced into the Subclav. Vein (Lft using the Modified Se ldinger technique. 9:13:37 A LEAD, SPRINT QUATTRO SECURE S 62CM 62CM was inserted and positioned in the RV. 9:13:40 Lead placement verified under fluoroscopy 9:14:12 The RV lead impedance and threshold being tested. 9:14:35 The RV lead was sutured to the fascia. 9:15:16 A LEAD, CAPSURE FIX NOVUS, 45CM 45CM was inserted and positioned in the RA. 9:18:00 Lead placement verified under fluoroscopy 9:18:29 The Atrial lead impedance and threshold is being tested. 9:22:03 Livewire to cs inserted. 9:25:42 The Coronary Sinus was manually injected with 10 cc's of contrast. OMNIPAQUE, 300 MG, 50ML 5 0ML used. 9:26:49 A WIRE, ASAHI PROWATER 180CM 180CM was inserted via Coronary Sinus. 9:31:44 A LEAD, ATTAIN PERFORMA STRAIGHT, 88CM 88CM was inserted and positioned in the CS/LV. 9:39:35 A pocket was created at the L Upper Chest. 9:40:31 A PACEMAKER, AMPLIA MRI WOOL WASHER-D SURESCAN DDEDDDDR was connected and placed in the pocket. Second Sponge And Instrument Count Done by Ammon Balderas RT(R). 9:44:55 Hypo's: 5, Sponges: 20, Bovie/scratch: 1 Sutures: 10, Blades: 1, Instruments: 26, Syveck Patches: 0 verified w DC. 9:49:03 A 2 Joul DFT was performed. 9:50:00 The DFT was Success at 20 Joules, 71 Ohms lead impedance and 4.5 ms charge time. 9:50:51 The pocket was closed. Final Sponge And Instrument Count Done by Ammon Balderas RT(R). 9:51:01 Hypo's: 5, Sponges: 20, Bovie/scratch: 1 Sutures: 10, Blades: 1, Instruments: 26, Syveck Patches: 0 verified w DC. 9:52:54 CS Quad Catheter removed without difficulty 9:53:35 Case End 9:53:36 No case complications noted. 9:53:36 Cine recording checked. 9:53:46 Sterile dressing applied to site 9:53:54 Implant Procedure was performed. 9:53:58 A Bivent ICD Implant . (Dual) Assessment: Final Case, HR=85 BPM, Rhythm=evp marketing, ACLS=790/52 mmhg, Chest Pain=0, Edema=None, [place] r=Normal, Skin = Warm, Dry Right Pulses: Neftali Ped=3 Left Pulses: Neftali Ped=3 9:58:12 Lower Right Extremities: Color=Normal Lower Left Extremities: Color=Normal Neurological: State=Lethargic, Ox3, ROSALES Respiration: Resp=16 B/min, InP5=929 %, O2=6 lpm 9:59:37 Sheath(s) left in place, secured, 0.9ns kvo connected and will be removed in Holding Area 10:00:04 CICU called. Spoke to Michelle 10:00:12 Bedside Report will be given. 10:00:14 Defibrillator and ground pads removed. Skin intact. 10:00:26 Implantable Device card placed in patient's chart. 10:08:10 A sling was placed on the affected arm. 10:08:16 Patient moved to stretcher 10:10:32 A sling was placed on the affected arm. End Study - Contrast Media Used In Study Contrast Total Opened (mL) Total Used (mL) Total Wasted (mL) Omnipaque 50 10 40 End Study - Radiation Exposure Fluoro Time (minutes) 11.2 End Study - Patient Disposition Complications Transferred To Interventional Outcome No Telemetry Bed successful
[2017-04-18] MEDS ORDERED: MAGNESIUM HYDROXIDE SUSP 30 ML CUP PO PRN (11:15)
[2017-04-18] MEDS ORDERED: ONDANSETRON HCL 4 MG/2 ML VIAL IV PUSH PRN ×2 (11:15)
[2017-04-18] MEDS ORDERED: BACITRACIN OINT 0.9 GM PKT TOP ONE (11:15)
[2017-04-18] MEDS ORDERED: LORazepam 2 MG/ML VIAL IV PUSH PRN (11:15)
[2017-04-18] MEDS ORDERED: oxyCODONE/ACETAMINOPHEN 5 MG/325 MG TAB PO PRN (11:15)
[2017-04-18] MEDS ORDERED: LIDOCAINE HCL 1% 50 ML VIAL INFIL PRN (11:15)
[2017-04-18] MEDS ORDERED: SODIUM CHLOR 0.9% 250 ML INJ 250 ML IV PRN (11:15)
[2017-04-18] MEDS ORDERED: METOCLOPRAMIDE HCL 10 MG/2 ML VIAL IV PUSH PRN (11:15)
[2017-04-18] MEDS ORDERED: TEMAZEPAM 15 MG CAP PO PRN (11:15)
[2017-04-18] MEDS ORDERED: ATROPINE SULFATE 1 MG/ML VIAL IV PUSH PRN (11:15)
[2017-04-18] MEDS ORDERED: RESP: ALBUTEROL 0.63 MG/3 ML NEB (PRN) NEB (11:15)
--- NOTE | 2017-04-18 12:32 | RADRPT ---
EXAM DATE/TIME: 04/18/2017 11:26 [place] COMPARISON: CHEST SINGLE AP, April 15, 2017, 15:23. INDICATIONS : Pacemaker Evaluate for pneumothorax. MEDICAL HISTORY : Chronic obstructive pulmonary disease. Congestive heart failure. SURGICAL HISTORY : None. ENCOUNTER: Initial ACUITY: 1 day PAIN SCORE: 0/10 LOCATION: chest FINDINGS: Pacemaker device is noted with control pack over the left chest. There is no evidence of pneumothorax or other complication of placement. Lungs are focally clear. No pleural effusion is identified. Card iac contours are stable. CONCLUSION: Satisfactory pacemaker appearance. No complication. Mason Joseph MD on April 18, 2017 at 12:30 Board Certified Radiologist. This report was verified electronically.
[2017-04-18] MEDS: ceFAZolin 2 GM PREMIX 50 ML IV SCH (17:58)
[2017-04-18] MEDS: oxyCODONE/ACETAMINOPHEN 5 MG/325 MG TAB PO PRN (18:04)
[2017-04-18] MEDS: METOPROLOL TARTRATE 25 MG TAB PO SCH (20:48)
[2017-04-18] MEDS: SALMETEROL INH SCH (20:48)
[2017-04-18] MEDS: FLUTICASONE INH SCH (20:48)
[2017-04-18] MEDS ORDERED: SALMETEROL INH SCH (21:00)
[2017-04-18] MEDS ORDERED: FLUTICASONE INH SCH (21:00)
[2017-04-19] VITALS (13 sets, daily range): BP systolic 127–141; BP diastolic 63–69; PULSE 68–86; RESP 16; TEMP 97.5–97.9; O2SAT 91–97
[2017-04-19] MEDS: ceFAZolin 2 GM PREMIX 50 ML IV SCH ×2 (01:49→09:26)
[2017-04-19] MEDS ORDERED: CEPH-460 PO (07:49)
--- NOTE | 2017-04-19 07:53 | PD.CARD.PN ---
Subjective Subjective Remarks Feels okay Objective Medications Current Medications Medications (Trade) Dose Ordered Sig/Katie Route Start Time Stop Time Status Last Admin Sodium Chloride 500 ml @ 30 mls/hr [id number] IV 04/18/17 06:45 Sodium Chloride 1,000 ml @ 30 mls/hr Q24H IV 04/18/17 06:45 Cefazolin Sodium/ Dextrose 50 ml @ 100 mls/hr ROTARY DRUM TANNER IV 04/18/17 06:45 04/21/17 06:44 (Ativan) 1 mg ROTARY DRUM TANNER SL 04/18/17 06:45 04/21/17 06:44 (Betadine 5% Antisepsis Kit) 2 applic ROTARY DRUM TANNER EACH NARE 04/18/17 06:45 04/21/17 06:44 04/18/17 07:07 (Bactroban Nasal 2% Oint) 1 applic ROTARY DRUM TANNER NASAL 04/18/17 06:45 04/21/17 06:44 (Chlorhexidine 2% Cloth) 3 pack ROTARY DRUM TANNER TOPICAL 04/18/17 06:45 04/21/17 06:44 04/18/17 07:07 Lactated Ringer's 1,000 ml @ 30 mls/hr Q24H PRN IV 04/18/17 06:45 04/21/17 06:44 Sodium Chloride 500 ml @ 30 mls/hr [id number] PRN IV 04/18/17 06:45 04/21/17 06:44 (Lopressor) 25 mg ROTARY DRUM TANNER PRN PO 04/18/17 06:45 04/21/17 06:44 (Betadine 5% Antisepsis Kit) 1 applic ROTARY DRUM TANNER PRN EACH NARE 04/18/17 06:45 04/21/17 06:44 (Chlorhexidine 2% Cloth) 3 pack ROTARY DRUM TANNER PRN TOPICAL 04/18/17 06:45 04/21/17 06:44 (NovoLIN R INJ) See Protocol Table ... ROTARY DRUM TANNER PRN SQ 04/18/17 06:45 04/21/17 06:44 (Percocet 5-325 Mg) 1 tab Q4H PRN PO 04/18/17 11:15 04/18/17 18:04 (Percocet 5-325 Mg) 2 tab Q4H PRN PO 04/18/17 11:15 (Ativan Inj) 0.5 mg UNSCH PRN IV PUSH 04/18/17 11:15 04/19/17 11:14 (Atropine Inj) 0.5 mg UNSCH PRN IV PUSH 04/18/17 11:15 Sodium Chloride 250 ml @ 500 mls/hr ONCE PRN IV 04/18/17 11:15 04/19/17 11:14 (Reglan Inj) 10 mg Q4H PRN IV PUSH 04/18/17 11:15 (Zofran Inj) 4 mg Q4H PRN IV PUSH 04/18/17 11:15 (Xylocaine 1% Inj (50 ml)) 10 ml UNSCH PRN INFIL 04/18/17 11:15 04/19/17 11:14 Cefazolin Sodium/ Dextrose 50 ml @ 100 mls/hr Q8H IV 04/18/17 18:00 04/19/17 10:29 04/19/17 01:49 (Restoril) 15 mg HS PRN PO 04/18/17 11:15 (Milk Of Magnesia Liq) 30 ml Q6H PRN PO 04/18/17 11:15 (Albuterol Neb) 0.63 mg Q6HR NEB PRN NEB 04/18/17 11:15 (Aspirin Chew) 81 mg DAILY CHEW 04/19/17 09:00 (Lipitor) 20 mg DAILY PO 04/19/17 09:00 (Lasix) 20 mg DAILY PO 04/19/17 09:00 (Prinivil) 5 mg DAILY PO 04/19/17 09:00 (Lopressor) 12.5 mg BID PO 04/18/17 21:00 04/18/17 20:48 (Pepcid) 20 mg DAILY PO 04/19/17 09:00 Patient Own Medication PT OWN MED: ADVAIR ... BID INH 04/18/17 21:00 04/18/17 20:48 Vital Signs / I&O Vital Signs Date Time Temp Pulse Resp B/P (MAP) Pulse Ox O2 Delivery O2 Flow Rate FiO2 04/19/17 06:00 75 04/19/17 05:00 76 04/19/17 04:00 68 04/19/17 03:00 97.9 72 16 127/63 (84) 97 04/19/17 03:00 72 04/19/17 02:00 71 04/19/17 01:00 70 04/19/17 00:00 71 04/18/17 23:00 98.1 73 16 110/56 (74) 96 04/18/17 23:00 73 04/18/17 22:00 63 04/18/17 21:00 80 04/18/17 20:00 80 04/18/17 20:00 98.1 84 16 123/54 (77) 95 04/18/17 19:00 84 04/18/17 18:00 84 04/18/17 17:00 82 04/18/17 15:00 80 04/18/17 15:00 98.2 97 17 113/75 (88) 94 04/18/17 13:00 95 04/18/17 12:00 79 04/18/17 12:00 97.9 79 17 139/75 (96) 99 04/18/17 11:00 95 04/18/17 10:40 92 04/18/17 10:37 97.6 95 17 141/79 (99) 95 I/O 04/18/17 04/18/17 04/18/17 04/19/17 04/19/17 04/19/17 07:00 15:00 23:00 07:00 15:00 23:00 Intake Total 290 ml 290 ml Balance 290 ml 290 ml Intake Oral 240 ml 240 ml IV Total 50 ml 50 ml # Voids 2 3 # Bowel Movements 1 Physical Exam GENERAL: Well-nourished, well-developed patient. SKIN: Warm and dry. Left chest wall incision well approximated without erythema or drainage. HEAD: Normocephalic. EYES: No scleral icterus. No injection or drainage. NECK: Supple, trachea midline. No JVD or lymphadenopathy. CARDIOVASCULAR: Regular rate and rhythm without murmurs, gallops, or rubs. RESPIRATORY: Breath sounds equal bilaterally. No accessory muscle use. GASTROINTESTINAL: Abdomen soft, non-tender, nondistended. EXTREMITIES: No cyanosis, or edema. NEUROLOGICAL: Awake, alert, and oriented x 3. Non-focal. Imaging Last Impressions Chest X-Ray 04/18/17 0000 Signed Impressions: Service Date/Time: Tuesday, April 18, 2017 11:26 - CONCLUSION: Satisfactory pacemaker appearance. No complication. Mason Joseph MD Assessment and Plan Problem List: (1) Congestive heart failure ICD Codes: I50.9 - Heart failure, unspecified Status: Chronic Plan: Medications optimized to include Lopressor, lisinopril, Lasix, Lipitor. Stable status post BiVICD implant. (2) S/P ICD (internal cardiac defibrillator) procedure ICD Codes: Z95.810 - Presence of automatic (implantable) cardiac defibrillator Plan: Stable s/p BiVICD implant for SCD prevention and cardiac resynchronization. Device function appropriate, CXR negative. DC home, f/u with Dr. Reyes in 2 weeks, per my discussion with him. Problem Qualifiers (1) Congestive heart failure: Lin Guajardo Apr 19, 2017 07:53
[2017-04-19] MEDS ORDERED: ATORVASTATIN 20 MG TAB PO SCH (09:00)
[2017-04-19] MEDS ORDERED: ASPIRIN 81 MG CHEW TAB CHEW SCH (09:00)
[2017-04-19] MEDS ORDERED: FAMOTIDINE 20 MG TAB PO SCH (09:00)
[2017-04-19] MEDS ORDERED: FUROSEMIDE 20 MG TAB PO SCH (09:00)
[2017-04-19] MEDS ORDERED: LISINOPRIL 5 MG TAB PO SCH (09:00)
[2017-04-19] MEDS: oxyCODONE/ACETAMINOPHEN 5 MG/325 MG TAB PO PRN (09:22)
[2017-04-19] MEDS: METOPROLOL TARTRATE 25 MG TAB PO SCH (09:24)
[2017-04-19] MEDS: SALMETEROL INH SCH (09:25)
[2017-04-19] MEDS: FLUTICASONE INH SCH (09:25)
--- NOTE | 2017-04-19 14:48 | EKG ---
Date Performed: 04/19/2017 Time Performed: 03:06:24 PTAGE: 77 years EKG: Sinus rhythm IVCD Diffuse ST-T changes Abnormal ECG PREVIOUS TRACING : 04/18/2017 11.57 Compared to prior tracing no significant change DOCTOR: Latesha Mccain Interpretating Date/Time 04/19/2017 14:47:08
--- NOTE | 2017-04-19 15:41 | EKG ---
Date Performed: 04/18/2017 Time Performed: 11:57:16 PTAGE: 77 years EKG: Sinus rhythm LBBB Abnormal ECG PREVIOUS TRACING : 04/18/2017 06.43 Compared to prior tracing no significant change DOCTOR: Latesha Mccain Interpretating Date/Time 04/19/2017 15:39:33
--- NOTE | 2017-04-19 15:47 | EKG ---
Date Performed: 04/18/2017 Time Performed: 06:43:42 PTAGE: 77 years EKG: Sinus rhythm . Left bundle branch block Abnormal ECG Compared to prior tracing no significant change DOCTOR: Latesha Mccain Interpretating Date/Time 04/19/2017 15:45:03
--- NOTE | 2017-04-28 11:46 | PD.CARD ---
BIV/ICD Implantation PROCEDURE DATE: Apr 18, 2017 NYHA Classification: Class III (Moderate) BIV/ICD IMPLANT PROCEDURE Biventricular pacer defibrillator implantation and device testing. INDICATION FOR PROCEDURE Ms. Reeves is a 77-year-old female with congestive heart failure, cardiomyopathy, QRS 140 ms,EF 25% who undergo biventricular pacer defibrillator implantation. Patient on optimal medical management for over 3 months. Post electrophysiology study the patient was kept on the table for device implantation.This is primary prevention. The risks, the nature and the benefit of the procedure were clearly stated to her. The risks include pneumothorax, cardiac perforation, stroke and even . He understood and agreed to proceed. PROCEDURE As written informed consent was obtained prior to electrophysiology study, the patient was kept on the table where he was prepped and draped in the usual sterile fashion. Conscious sedation was initiated and maintained throughout the procedure by the anesthesiologist. Once sedation was verified, the left infraclavicular area was anesthetized with 2% Xylocaine. Using modified Seldinger technique, the left subclavian vein was cannulated on three occasions and three guidewire were advanced. Then, using an 11 blade scalpel, a 3 cm incision was made over the existing generator. The incision was taken down to the fascial layer using Bovie cautery and blunt dissection. Into the inferomedial direction, a device pocket was dissected. Then the wires were dissected into pocket. A 2-0 Vicryl suture was placed around the wires to prevent back-bleeding. At this point, over the lateral wire, a 9-Beninese dilator and introducer were advanced. As the dilator and wire were removed, an active fixation right ventricular pacing sensing defibrillatory lead was advanced. After adequate pacing and sensing thresholds were obtained, the lead was secured in the pocket using # 2 Ethibond suture. Then, over the lateral wire, a 7-Beninese dilator and introducer was advanced. As the dilator and wire were removed, an active fixation right atrial pacing and sensing lead was advanced. After adequate pacing and sensing thresholds was obtained. The lead was secured into the pocket using # 2 Ethibond suture. Then, over the remaining wire, a 9-Beninese dilator and introducer were advanced. As the dilator and wire were removed, a CS cannulation sheath was advanced. Through the sheath a quadripolar steerable catheter was advanced. After multiple manipulations the coronary sinus was cannulated, and CS venography showed an adequate lateral branch. Using a Prowater wire the lateral branch was cannulated and the lead was advanced over the wire. After adequate pacing and sensing thresholds were obtained, the peel-away introducer was removed and the cutter introducer was removed, and the lead was secured in the pocket using # 2 Ethibond suture. At that point, the pocket was copiously irrigated with antibiotic solution. The leads were connected to the generator and placed into pocket. Because of the patient's general condition, I decided not to proceed with device testing. I did proceed with wound closure. The deep fascial layer was approximated using # 2-0 Vycril suture in a continuous fashion. The subcutaneous layer was approximated with 2-0 Vicryl suture in a continuous fashion. The subcuticular layer was approximated with 2-0 Vicryl suture in a continuous fashion. Dermabond adhesive was applied to the wound followed by a sterile pressure dressing. This was a very complex case. The patient was unstable during the procedure, but no complications reported. Blood loss was minimal. IMPLANTED HARDWARE The implanted biventricular pacer defibrillator is a Medtronic model AJZI3CR, serial number [id number]. The right atrial pacing and sensing lead is a Medtronic model number 4076-52, serial number [id number]. The right ventricle pacing sensing defibrillatory is a Medtronic model 6935-62, serial number [id number]. The left ventricular pacing sensing lead is a Medtronic model 4398-88, serial number [id number]. THRESHOLDS The right atrial pacing threshold cannot be measured. The patient was in atrial fibrillation. Fib wave was at 0.9 millivolts and impedance 934 ohms. The right ventricle pacing threshold in the bipolar mode was 0.7 volts at 0.5 milliseconds, lead impedance 690 ohms, and shocking impedance 71 ohms. The left ventricular pacing threshold in the bipolar mode was 0.4 volts at 0.5 milliseconds, lead impedance 750 ohms. SETTINGS The device was set in a VVIR 70, upper limit 110 beats per minute. LV first by 40 milliseconds. The defibrillatory portion was set for two zones. One zone for ventricular tachycardia monitoring between 160 and 240 beats per minute on the monitor ventricular tachycardia. The initial therapy consisted of one burst of ATP, one RAMP, 81%, 10 pulses, 10millisecond decremental followed by 20 then 25 and all subsequent shocks at 35 joules defibrillatory shock. The second zone is for ventricle fibrillation above 240, the first therapy at 25 and all subsequent shocks at 35 joules defibrillatory shock. CONCLUSIONS Successful biventricular pacer defibrillator implantation, that was a complex case. COMMENT AND RECOMMENDATION The patient will be transferred to the telemetry unit. She will be observed and when stable can be discharged home. Ling Reyes MD Apr 28, 2017 11:46
--- NOTE | 2017-04-28 12:00 | PD.CARD ---
BIV/ICD Implantation PROCEDURE DATE: May 18, 2017 NYHA Classification: Class III (Moderate) Prevention: Primary BIV/ICD IMPLANT PROCEDURE Biventricular pacer defibrillator implantation and device testing. INDICATION FOR PROCEDURE Ms. Reeves is a 77-year-old female with congestive heart failure, cardiomyopathy, QRS 140 ms, EF 25% who undergo biventricular pacer defibrillator implantation. Post electrophysiology study the patient was kept on the table for device implantation. The risks, the nature and the benefit of the procedure were clearly stated to her. The risks include pneumothorax, cardiac perforation, stroke and even . He understood and agreed to proceed. PROCEDURE As written informed consent was obtained prior to electrophysiology study, the patient was kept on the table where he was prepped and draped in the usual sterile fashion. Conscious sedation was initiated and maintained throughout the procedure by the anesthesiologist. Once sedation was verified, the left infraclavicular area was anesthetized with 2% Xylocaine. Using modified Seldinger technique, the left subclavian vein was cannulated on three occasions and three guidewire were advanced. Then, using an 11 blade scalpel, a 3 cm incision was made over the existing generator. The incision was taken down to the fascial layer using Bovie cautery and blunt dissection. Into the inferomedial direction, a device pocket was dissected. Then the wires were dissected into pocket. A 2-0 Vicryl suture was placed around the wires to prevent back-bleeding. At this point, over the lateral wire, a 9-Maltese dilator and introducer were advanced. As the dilator and wire were removed, an active fixation right ventricular pacing sensing defibrillatory lead was advanced. After adequate pacing and sensing thresholds were obtained, the lead was secured in the pocket using # 2 Ethibond suture. Then, over the lateral wire, a 7-Maltese dilator and introducer was advanced. As the dilator and wire were removed, an active fixation right atrial pacing and sensing lead was advanced. After adequate pacing and sensing and pacing threshold obtained. The lead was secure into the pocket using # 2 -0 Ethibond suture. Then, over the remaining wire, a 9-Maltese dilator and introducer were advanced. As the dilator and wire were removed, a CS cannulation sheath was advanced. Through the sheath a quadripolar steerable catheter was advanced. After multiple manipulations the coronary sinus was cannulated, and CS venography showed an adequate lateral branch. Using a Prowater wire the lateral branch was cannulated and the lead was advanced over the wire. After adequate pacing and sensing thresholds were obtained, the peel-away introducer was removed and the cutter introducer was removed, and the lead was secured in the pocket using # 2 Ethibond suture. At that point, the pocket was copiously irrigated with antibiotic solution. The leads were connected to the generator and placed into pocket. Because of the patient's general condition and was so unstable during the procedure, I decided not to proceed with device testing. I did proceed with wound closure. The deep fascial layer was approximated using # 2-0 Vicryl suture in a continuous fashion. The subcutaneous layer was approximated with 2-0 Vicryl suture in a continuous fashion. The subcuticular layer was approximated with 2-0 Vicryl suture in a continuous fashion. Dermabond adhesive was applied to the wound followed by a sterile pressure dressing. This was a very complex case. The patient was unstable during the procedure, but no complications reported. Blood loss was minimal. IMPLANTED HARDWARE The implanted biventricular pacer defibrillator is a Medtronic model TQAT2MH, serial number [id number]. The right atrial pacing and sensing lead is a Medtronic model number 4076-52, serial number [id number]. The right ventricle pacing sensing defibrillatory is a Medtronic model 6935-62, serial number [id number]. The left ventricular pacing sensing lead is a Medtronic model # 4398-88, serial number [id number]. THRESHOLDS The right atrial pacing threshold in a bipolar mode was less than 1V at o.5 ms P wave at 0.9 millivolts and impedance 935 ohms. The right ventricle pacing threshold in the bipolar mode was 0.7 volts at 0.5 milliseconds, lead impedance 690 ohms, and shocking impedance 71 ohms. The left ventricular pacing threshold in the bipolar mode was 0.4 volts at 0.5 milliseconds, lead impedance 750 ohms. SETTINGS The device was set in a DDD60, upper limit 120 beats per minute. LV first by 40 milliseconds. The defibrillatory portion was set for three zones. One zone for ventricular monitoring between 160 and 240 beats per minute on the monitor ventricular tachycardia. The initial therapy consisted of one burst of ATP, one RAMP, 81%, 10 pulse, 10 millisecond decremental followed by 20 and 25 and all subsequent shocks at 35 joules defibrillatory shock. The second zone is for ventricle fibrillation above 240, the first therapy at 25 and all subsequent shocks at 35 joules defibrillatory shock. CONCLUSIONS Successful biventricular pacer defibrillator implantation, that was a complex case. COMMENT AND RECOMMENDATION The patient will be transferred to the telemetry unit. She will be observed and when stable can be discharged home. Ling Reyes MD Apr 28, 2017 12:00
--- NOTE | 2017-04-28 12:06 | PD.CARD ---
ELECTROPHYSIOLOGY STUDY 2 PROCEDURE DATE: Apr 18, 2017 Electrophysiology Study II PROCEDURE Electrophysiology study, coronary sinus cannulation. HISTORY Ms. Reeves is a 77 -year-old female with congestive heart failure, cardiomyopathy, ejection fraction 25%, referred for electrophysiology study and Biventricular pacer defibrillator implantation for sudden prevention and resynchronization therapy. The risks, the nature and the benefit of the procedure are clearly stated to her . Risks include pneumothorax, cardiac perforation, stroke and even . She understood and agreed to proceed. PROCEDURE NOTE After written informed consent was obtained, the patient was brought to the EP lab where she was prepped and draped in the usual sterile fashion. Conscious sedation was initiated and maintained throughout the procedure by anesthesiologist. Once sedation was verified, the right inguinal area was anesthetized with 2% Xylocaine. Using modified Seldinger technique, the right femoral vein was cannulated on four occasions and four guidewires were advanced. Then, over the wires three 5 American and one 6 mongolian hemaquets were advanced. Then, under fluoroscopic guidance through the 5 American Hemaquet three 5 American Aurelio curved quadripolar electrophysiology catheters were advanced and positioned along the His, upper right atrium and coronary sinus. The patient was in sinus rhythm Atria pacing protocol was performed . No tachyarrhythmia was performed. The right atrial catheter was placed at the right ventricular apex. Ventricular pacing protocol was performed. No ventricular tachycardia was induced. Isuprel was infused at 4 mcg, no tachycardia was induced. At that point, procedure was complete. All catheters and Hemaquet were removed. The patient will be kept on the table and a single chamber defibrillator will be implanted for sudden prevention. No incident reported. The patient tolerated the procedure. Blood loss minimal. IMPRESSION 1. Electrocardiogram: At baseline the patient was in Sinus Rhythm. Post- procedure electrocardiogram was unchanged. 2. Basic Interval: The basic cycle length was around 880 milliseconds. AH was 62 ms and H-V was around 48 milliseconds. 3. Atrial pacing protocol: No tachyarrhythmia was induced 4. Ventricular Pacing Protocol: No ventricular tachyarrhythmia was induced. Isuprel. CONCLUSIONS Self-limited ventricular tachyarrhythmia COMMENT AND RECOMMENDATION The patient will be kept on the table and a biventricular pacer defibrillator will be implanted for sudden prevention. Ling Reyes MD Apr 28, 2017 12:06
== END 2017-04-19 13:45 | disposition home or self-care (01) ==
LOC: HDOC 06:06 → HDIC 06:08 → HCIN 10:27 → HDOC 04-19 13:45
PROVIDERS: ATTEND Internal Medicine Interventional Cardiology
DX: I50.9 Heart failure, unspecified (principal); I25.5 Ischemic cardiomyopathy; I12.9 Hypertensive chronic kidney disease with stage 1 through stage 4 chronic kidney disease, or unspecified chronic kidney disease; N18.2 Chronic kidney disease, stage 2 (mild); F17.210 Nicotine dependence, cigarettes, uncomplicated; R06.00 Dyspnea, unspecified; E78.5 Hyperlipidemia, unspecified; J44.9 Chronic obstructive pulmonary disease, unspecified; Z99.81 Dependence on supplemental oxygen; Z79.82 Long term (current) use of aspirin
CPT/HCPCS: 00530; 33225; 33249; 71010; 80048; 85025; 85610; 85730; 86850; 86900; 86901; 93005; 93620; C1730; C1769; C1777; C1882; C1898; C1900; J0690; J1644; J2250; J2370; J3010; J3370; J7050

== ENCOUNTER 2017-05-11 17:21 | Emergency (ER) | payer OTHER ==
[~2017-05-11] VITALS: Ht 149.9 cm; Wt 58.1 kg
[~2017-05-11 17:21] MED LIST changes: +CEPH-460 PO; +Home Oxygen NAS.CANULA; -PRED50 PO; -VENTAER INH
--- NOTE | 2017-05-11 17:42 | PD ---
HPI Chief Complaint: Respiratory Symptoms Time Seen by Provider: 17:28 Travel History International Travel<30 days: No Contact w/Intl Traveler<30days: No Traveled to known affect area: No History of Present Illness HPI The patient is a 77-year-old female who presents to the emergency department for shortness of breath. The patient has a history of chronic shortness of breath secondary to COPD and a cardiomyopathy with an ejection fraction of 25%. However, the patient states her shortness of breath was worse today. The patient uses a nebulizer earlier today with minimal relief of her symptoms. The patient's shortness of breath is worse with exertion, slightly improved at rest. The patient is on home oxygen at 2 L per day, continues to smoke, last cigarette was yesterday. The patient denies any chest pain or change in chronic cough. She denies any associated fever, chills, sweats, nausea, vomiting, abdominal pain, or new lower extremity edema. The patient's primary physician is Dr. Phillips. The patient's software qa manager is Dr. Novak. The patient's clinical marketing manager is Dr. Tu Rivera. The patient did have an AICD placed in March by Dr. Reyes. Symptoms are moderate, worse with exertion, and slightly alleviated at rest. PFSH Past Medical History Arthritis: Yes Asthma: No Autoimmune Disease: No Anxiety: No Depression: No Heart Rhythm Problems: No Cancer: No Cardiovascular Problems: Yes (HIGH CHOLERSTEROL) High Cholesterol: Yes Chest Pain: No Congestive Heart Failure: Yes COPD: Yes (2L O2 dependent at home) Cerebrovascular Accident: No Coronary Artery Disease: No Diabetes: No Diminished Hearing: Yes ([place] Endocrine: No Gastrointestinal Disorders: Yes GERD: Yes Genitourinary: No Hiatal Hernia: No Hypertension: Yes Immune Disorder: No Musculoskeletal: Yes Neurologic: Yes Psychiatric: No Reproductive: No Respiratory: Yes (COPD) Migraines: No Seizures: No Sickle Cell Disease: No Sleep Apnea: No Thyroid Disease: Yes (hypo) Ulcer: No Menopausal: Yes Past Surgical History Abdominal Surgery: Yes (APPENDIX, GALL BLADDER) AICD: No Appendectomy: Yes Arteriovenous Shunt: No Cardiac Surgery: Yes (bilateral leg veins stripped) Cholecystectomy: Yes Ear Surgery: No Endocrine Surgery: No Eye Surgery: Yes (EYE SURGERY A CHILD, cataracts) Genitourinary Surgery: Yes (BLADDER REPAIR) Gynecologic Surgery: Yes (TUBAL) Insulin Pump: No Joint Replacement: No Oral Surgery: Yes (TONSILS REMOVED) Pacemaker: No Thoracic Surgery: No Tonsillectomy: Yes Other Surgery: Yes Social History Alcohol Use: No Tobacco Use: Yes (07/27 PPD) Substance Use: No Allergies-Medications (Allergen,Severity, Reaction): Coded Allergies: tetanus toxoid, adsorbed (Unverified Allergy, Intermediate, RASH, 05/11/17 ) bupropion (Verified Allergy, Unknown, 05/11/17) shellfish derived (Verified Allergy, Unknown, 05/11/17) Uncoded Allergies: MUSCLE RELAXERS (Allergy, Intermediate, RASH, 11/19/14) . Reported Meds & Prescriptions Reported Meds & Active Scripts Active Zithromax Z-Abbe (Azithromycin) 250 Mg Dspk 250 Mg PO DIRECTED 500 MG (2 tabs) day 1, then 1 tab days 2-5. Deltasone (Prednisone) 20 Mg Tab 40 Mg PO DAILY 5 Days Proventil Hfa 6.7 GM Inh (Albuterol Sulfate) 90 Mcg/Act Aer 2 Puff INH Q4-6H PRN Reported [Home Oxygen] 2 Liter MARIANELA.CANULA HS Albuterol Neb (Albuterol Sulfate) 0.63 Mg/3 Ml Neb 0.63 Mg NEB Q6HR NEB PRN Advair Hfa 12 GM Inh (Fluticasone-Salmeterol 12 GM Inh) 115-21 Mcg/Act Aer 2 Puff INH BID Potassium Chloride ER (Potassium Chloride) 10 Meq Cap 10 Meq PO DAILY Metoprolol Tartrate 25 Mg Tab 12.5 Mg PO BID Aspirin 81 Mg Chew 81 Mg CHEW DAILY Ranitidine (Ranitidine HCl) 150 Mg Tab 150 Mg PO DAILY Furosemide 20 Mg Tab 20 Mg PO DAILY Lisinopril 5 Mg Tab 5 Mg PO DAILY Review of Systems Except as stated in HPI: all other systems reviewed are Neg General / Constitutional: No: Fever HENT: No: Lightheadedness Cardiovascular: Positive: Dyspnea on exertion, No: Chest Pain or Discomfort Respiratory: Positive: Cough (chronic), Shortness of Breath, Wheezing Gastrointestinal: No: Nausea, Vomiting, Abdominal Pain Musculoskeletal: No: Edema Neurologic: No: Dizziness Physical Exam Narrative GENERAL: Awake, alert, pleasant 77-year-old female who appears her stated age and is in no acute respiratory distress. SKIN: Focused skin assessment warm/dry. HEAD: Atraumatic. Normocephalic. EYES: No injection or drainage. ENT: No nasal bleeding or discharge. Mucous membranes pink and moist. NECK: Trachea midline. No JVD. CARDIOVASCULAR: Regular rate and rhythm. No murmur appreciated. Heart rate in the 90s. AICD in place left chest wall with Steri-Strips overlying it and no surrounding erythema. RESPIRATORY: No accessory muscle use. Prolonged expiratory phase with diffuse wheezing. GASTROINTESTINAL: Abdomen soft, non-tender, nondistended. No rebound tenderness. MUSCULOSKELETAL: No obvious deformities. No clubbing. No cyanosis. Trace edema. Positive dorsalis pedal pulses. NEUROLOGICAL: Awake and alert. No obvious cranial nerve deficits. Motor grossly within normal limits. Normal speech. PSYCHIATRIC: Appropriate mood and affect; insight and judgment normal. Data Data Last Documented VS Vital Signs Date Time Temp Pulse Resp B/P (MAP) Pulse Ox O2 Delivery O2 Flow Rate FiO2 05/11/17 20:54 105 20 97 Nasal Cannula 2.00 05/11/17 17:48 97.7 Orders Orders Complete Blood Count With Diff (05/11/17 17:34) Comprehensive Metabolic Panel (05/11/17 17:34) B-Type Natriuretic Peptide (05/11/17 17:34) Magnesium (Mg) (05/11/17 17:34) Ckmb (Isoenzyme) Profile (05/11/17 17:34) Troponin I (05/11/17 17:34) Iv Access Insert/Monitor (05/11/17 17:34) Ecg Monitoring (05/11/17 17:34) Oximetry (05/11/17 17:34) Oxygen Administration (05/11/17 17:34) Chest, Single Ap (05/11/17 17:34) Sodium Chloride 0.9% Flush (Ns Flush) (05/11/17 17:45) Methylprednisolone So Succ Inj (Solumedr (05/11/17 17:45) Albuterol-Ipratropium Neb (Duoneb Neb) (05/11/17 17:45) CKMB (05/11/17 17:40) CKMB% (05/11/17 17:40) Ct Pulmonary Angiogram (05/11/17 ) Iohexol 350 Inj (Omnipaque 350 Inj) (05/11/17 20:30) Ed Discharge Order (05/11/17 20:44) Electrocardiogram (05/11/17 17:31) Labs Laboratory Tests Test 05/11/17 17:40 White Blood Count 7.6 TH/MM3 Red Blood Count 4.23 MIL/MM3 Hemoglobin 10.9 GM/DL Hematocrit 34.0 % Mean Corpuscular Volume 80.4 FL Mean Corpuscular Hemoglobin 25.8 PG Mean Corpuscular Hemoglobin Concent 32.0 % Red Cell Distribution Width 13.9 % Platelet Count 225 TH/MM3 Mean Platelet Volume 8.2 FL Neutrophils (%) (Auto) 51.4 % Lymphocytes (%) (Auto) 27.3 % Monocytes (%) (Auto) 9.1 % Eosinophils (%) (Auto) 9.2 % Basophils (%) (Auto) 3.0 % Neutrophils # (Auto) 3.9 TH/MM3 Lymphocytes # (Auto) 2.1 TH/MM3 Monocytes # (Auto) 0.7 TH/MM3 Eosinophils # (Auto) 0.7 TH/MM3 Basophils # (Auto) 0.2 TH/MM3 CBC Comment DIFF FINAL Differential Comment Blood Urea Nitrogen 20 MG/DL Creatinine 0.79 MG/DL Random Glucose 93 MG/DL Total Protein 7.8 GM/DL Albumin 3.1 GM/DL Calcium Level 8.4 MG/DL Magnesium Level 2.3 MG/DL Alkaline Phosphatase 85 U/L Aspartate Amino Transf (AST/SGOT) 26 U/L Alanine Aminotransferase (ALT/SGPT) 22 U/L Total Bilirubin 0.2 MG/DL Sodium Level 138 MEQ/L Potassium Level 4.9 MEQ/L Chloride Level 102 MEQ/L Carbon Dioxide Level 31.7 MEQ/L Anion Gap 4 MEQ/L Estimat Glomerular Filtration Rate 70 ML/MIN Total Creatine Kinase 114 U/L Creatine Kinase MB 2.5 NG/ML Troponin I LESS THAN 0.02 NG/ML B-Type Natriuretic Peptide 21 PG/ML MDM Medical Decision Making Medical Screen Exam Complete: Yes Emergency Medical Condition: Yes Medical Record Reviewed: Yes Interpretation(s) EKG reveals electronic ventricular pacemaker with paced rhythm and a rate of 108. QTC 409 ms. Chest x-ray reveals no acute disease. No significant change has occurred. Last Impressions Chest X-Ray 05/11/17 [id number] Signed Impressions: Service Date/Time: , May 11, 2017 18:10 - CONCLUSION: No acute disease. No significant change has occurred. Collin Colvin MD CT Angiography 05/11/17 0000 Signed Impressions: Service Date/Time: April 20:10 - CONCLUSION: Negative for pulmonary emboli. No acute cardiopulmonary disease. Pacemaker in place. Nonspecific enlargement of the left lobe of the thyroid Collin Colvin MD Laboratory Tests Test 05/11/17 17:40 White Blood Count 7.6 TH/MM3 Red Blood Count 4.23 MIL/MM3 Hemoglobin 10.9 GM/DL Hematocrit 34.0 % Mean Corpuscular Volume 80.4 FL Mean Corpuscular Hemoglobin 25.8 PG Mean Corpuscular Hemoglobin Concent 32.0 % Red Cell Distribution Width 13.9 % Platelet Count 225 TH/MM3 Mean Platelet Volume 8.2 FL Neutrophils (%) (Auto) 51.4 % Lymphocytes (%) (Auto) 27.3 % Monocytes (%) (Auto) 9.1 % Eosinophils (%) (Auto) 9.2 % Basophils (%) (Auto) 3.0 % Neutrophils # (Auto) 3.9 TH/MM3 Lymphocytes # (Auto) 2.1 TH/MM3 Monocytes # (Auto) 0.7 TH/MM3 Eosinophils # (Auto) 0.7 TH/MM3 Basophils # (Auto) 0.2 TH/MM3 CBC Comment DIFF FINAL Differential Comment Blood Urea Nitrogen 20 MG/DL Creatinine 0.79 MG/DL Random Glucose 93 MG/DL Total Protein 7.8 GM/DL Albumin 3.1 GM/DL Calcium Level 8.4 MG/DL Magnesium Level 2.3 MG/DL Alkaline Phosphatase 85 U/L Aspartate Amino Transf (AST/SGOT) 26 U/L Alanine Aminotransferase (ALT/SGPT) 22 U/L Total Bilirubin 0.2 MG/DL Sodium Level 138 MEQ/L Potassium Level 4.9 MEQ/L Chloride Level 102 MEQ/L Carbon Dioxide Level 31.7 MEQ/L Anion Gap 4 MEQ/L Estimat Glomerular Filtration Rate 70 ML/MIN Total Creatine Kinase 114 U/L Creatine Kinase MB 2.5 NG/ML Troponin I LESS THAN 0.02 NG/ML B-Type Natriuretic Peptide 21 PG/ML Differential Diagnosis Differential diagnosis includes COPD exacerbation, bronchitis, pneumonia, cardiomyopathy, congestive heart failure, pulmonary edema, pleural effusion, pulmonary embolism. Narrative Course IV was established, labs are drawn and sent, and the patient was placed on cardiac telemetry monitoring and continuous pulse oximetry monitoring. EKG was ordered and interpreted. Chest x-ray was obtained. The patient received Solu- Medrol 125 mg intravenously and duo nebs 2. The patient's chest x-ray was unremarkable. The patient's troponin is less than 0.02. The patient was reassessed and was noted to be tachycardic with a heart rate that varied between 110 and 120. Heart rate upon arrival was 118. I reviewed the patient' s EMR she has had a negative nuclear medicine myocardial perfusion scan in 2014 but no prior workup in our system for possible pulmonary embolism. The patient has had increasing symptoms with multiple recent hospitalization/ER visits in the last several months. This may be progressing COPD versus possible underlying cardiomyopathy versus pulmonary embolism. The patient flew to [place] in January and underwent AICD placement in March. Therefore, CT pulmonary angiogram was ordered to rule out pulmonary embolism. BNP is 21, not congestive heart failure. CT pulmonary angiogram is negative. The patient was reevaluated, her symptoms had improved, patient has oxygen and nebulizers at home and feels she is able to go home and follow-up with her clinical marketing manager. She is advised to return if symptoms worsen or progress. Diagnosis Primary Impression: Chronic obstructive pulmonary disease with acute exacerbation Additional Impression: Shortness of breath Patient Instructions: General Instructions Additional Instructions: Continue duo nebs at home as previously directed. Prednisone as directed. Zithromax as directed. Follow-up with your clinical marketing manager. Please provide the patient a copy of her CT results and lab results and x-ray results at discharge. Med/Other Pt SpecificInfo: Prescription(s) given Scripts Azithromycin (Zithromax Z-Abbe) 250 Mg Dspk 250 MG PO DIRECTED for Infection, #1 DSPK 0 Refills 500 MG (2 tabs) day 1, then 1 tab days 2-5. Prov: Pawel Peña MD 05/11/17 Prednisone (Deltasone) 20 Mg Tab 40 MG PO DAILY for 5 Days, #10 TAB 0 Refills Prov: Pawel Peña MD 05/11/17 Disposition: 01 DISCHARGE HOME Condition: Stable Pawel Peña MD May 11, 2017 17:42
[2017-05-11] MEDS: RESP: ALBUTEROL 2.5 MG/IPRATROPIUM 0.5 MG NEB (SCH) INH (17:44)
[2017-05-11] MEDS ORDERED: SODIUM CHLORIDE 0.9% FLUSH 10 ML FLUSH IVF PRN (17:45)
[2017-05-11] MEDS ORDERED: methylPREDNISolone SOD SUCC 125 MG/2 ML VIAL IV PUSH ONE (17:45)
[2017-05-11 17:46] VITALS: RESP 18; O2SAT 98
[2017-05-11 17:48] VITALS: BP 140/76; PULSE 118; RESP 18; TEMP 97.7; O2SAT 96
[2017-05-11 18:01] LABS: AUTOMATED NEUTROPHIL # 3.9 TH/MM3 (1.8-7.7); BASOPHIL # 0.2 TH/MM3 (0-0.2); EOSINOPHIL # 0.7 TH/MM3 (0-0.4); EOSINOPHIL % 9.2 % (0.0-4.0); HEMO FLAGS DIFF FINAL; LYMPH % 27.3 % (9.0-44.0); LYMPHOCYTE # 2.1 TH/MM3 (1.0-4.8); MEAN CELL VOLUME 80.4 FL (80.0-100.0); MEAN CORPUSCULAR HEMOGLOBIN 25.8 PG (27.0-34.0); MONO % 9.1 % (0.0-8.0); NEUT % 51.4 % (16.0-70.0); PLATELET COUNT 225 TH/MM3 (150-450); RED BLOOD COUNT 4.23 MIL/MM3 (4.00-5.30); RED CELL DISTRIBUTION WIDTH 13.9 % (11.6-17.2); WHITE BLOOD COUNT 7.6 TH/MM3 (4.0-11.0)
[2017-05-11 18:08] LABS: CHLORIDE 102 MEQ/L (98-107); POTASSIUM 4.9 MEQ/L (3.5-5.1); SODIUM (NA) 138 MEQ/L (136-145)
[2017-05-11 18:12] LABS: ANION GAP 4 MEQ/L (5-15); BICARBONATE 31.7 MEQ/L (21.0-32.0); BLOOD UREA NITROGEN 20 MG/DL (7-18); MAGNESIUM 2.3 MG/DL (1.5-2.5)
[2017-05-11 18:15] LABS: ALT (GPT) 22 U/L (10-53); AST (GOT) 26 U/L (15-37); GLOMERULAR FILTRATION RATE 70 ML/MIN (>89)
[2017-05-11 18:17] LABS: TOTAL BILIRUBIN ADULT 0.2 MG/DL (0.2-1.0)
[2017-05-11 18:18] LABS: ALKALINE PHOSPHATASE 85 U/L (45-117); CREATINE KINASE 114 U/L (26-192)
[2017-05-11 18:30] LABS: CKMB 2.5 NG/ML (0.5-3.6)
--- NOTE | 2017-05-11 18:35 | RADRPT ---
EXAM DATE/TIME: 05/11/2017 18:10 [facility] COMPARISON: CHEST SINGLE AP, April 18, 2017, 11:26. INDICATIONS : Short of breath. MEDICAL HISTORY : Chronic obstructive pulmonary disease. Congestive heart failure SURGICAL HISTORY : Pacemaker. ENCOUNTER: Initial ACUITY: 1 day PAIN SCORE: 0/10 LOCATION: Bilateral chest FINDINGS: A single view of the chest demonstrates the lungs to be symmetrically aerated without evidence of mas s, infiltrate or effusion. The cardiomediastinal contours are unremarkable. Osseous structures are intact. Pacemaker AICD device overlies the left hemithorax. CONCLUSION: No acute disease. No significant change has occurred. Collin Colvin MD on May 11, 2017 at 18:33 Board Certified Radiologist. This report was verified electronically.
[2017-05-11] MEDS ORDERED: PRED-503 PO (18:37)
[2017-05-11] MEDS ORDERED: ZITHTAB PO (18:37)
[2017-05-11 20:23] VITALS: BP 139/56; PULSE 111; RESP 20; O2SAT 95
[2017-05-11] MEDS ORDERED: IOHEXOL 350 MG/ML 10 ML VIAL (for RAD DIAG) IVCONTRAST ONE (20:30)
--- NOTE | 2017-05-11 20:36 | RADRPT ---
EXAM DATE/TIME: 05/11/2017 20:10 [facility] COMPARISON: CHEST SINGLE AP, May 11, 2017, 18:10. INDICATIONS : Weakness and shortness of breath. IV CONTRAST: 74 cc Omnipaque 350 (iohexol) IV RADIATION DOSE: 6.38 CTDIvol (mGy) MEDICAL HISTORY : Hypertension. Chronic obstructive pulmonary disease. Congestive heart failure. SURGICAL HISTORY : Appendectomy. Cholecystectomy.Tonsillectomy. ENCOUNTER: Initial ACUITY: 3 days PAIN SCALE: 8/10 LOCATION: chest TECHNIQUE: Volumetric scanning of the chest was performed using a pulmonary embolism protocol MIP images were re constructed. Using automated exposure control and adjustment of the mA and/or kV according to patien t size, radiation dose was kept as low as reasonably achievable to obtain optimal diagnostic quality images. DICOM format image data is available electronically for review and comparison. Follow-up recommendations for detected pulmonary nodules are based at a minimum on nodule size and pa tient risk factors according to Fleischner Society Guidelines. FINDINGS: PULMONARY ARTERIES: No filling defects are seen in the pulmonary arteries through the segmental level. LUNGS: There is no consolidation or pneumothorax . No concerning pulmonary nodule is visualized. PLEURAE: There is no pleural thickening or pleural effusion. MEDIASTINUM: There is good visualization of the great vessels of the middle mediastinum. No evidence of mediastin al or hilar adenopathy/mass. Pacemaker overlying left hemithorax in place . Nonspecific enlargement l eft lobe of the thyroid MUSCULOSKELETAL: Within normal limits for patient age. MISCELLANEOUS: The visualized upper abdominal organs demonstrate no acute abnormality. CONCLUSION: Negative for pulmonary emboli. No acute cardiopulmonary disease. Pacemaker in place. Nonspecific enlargement of the left lobe of the thyroid Collin Colvin MD on May 11, 2017 at 20:31 Board Certified Radiologist. This report was verified electronically.
--- NOTE | 2017-05-12 23:21 | EKG ---
Date Performed: 05/11/2017 Time Performed: 17:31:24 PTAGE: 77 years EKG: ELECTRONIC VENTRICULAR PACEMAKER ABNORMAL RHYTHM ECG INTERPRETATION BASED ON A DEFAULT AGE OF 40 YEARS NO PREVIOUS TRACING DOCTOR: Ed Ford Interpretating Date/Time 05/12/2017 23:20:47
== END 2017-05-11 21:07 | disposition home or self-care (01) ==
LOC: PHED 17:21
DX: J44.1 Chronic obstructive pulmonary disease with (acute) exacerbation (principal); F17.210 Nicotine dependence, cigarettes, uncomplicated; I42.9 Cardiomyopathy, unspecified; I11.0 Hypertensive heart disease with heart failure; I50.9 Heart failure, unspecified; Z99.81 Dependence on supplemental oxygen
CPT/HCPCS: 71010; 71275; 80053; 82550; 82552; 83735; 83880; 84484; 85025; 93005; 94640; 94664; 96374; 99285; J2930; Q9967

== ENCOUNTER 2017-08-01 13:14 | Observation (INO) | payer OTHER ==
[2017-08-01] VITALS (10 sets, daily range): BP systolic 110–133; BP diastolic 50–62; PULSE 103–123; RESP 18–26; TEMP 96.7–98.3; O2SAT 90–100
[~2017-08-01] VITALS: Ht 149.9 cm; Wt 57.4 kg
[~2017-08-01 13:14] MED LIST changes: +ASPI-516 CHEW; -ASPI81CH CHEW; -ATOR20TA15 PO; -CEPH-460 PO; +PRED-503 PO; +ZITHTAB PO
--- NOTE | 2017-08-01 13:40 | PD ---
HPI Chief Complaint: Respiratory Symptoms Time Seen by Provider: 13:32 Travel History International Travel<30 days: No Contact w/Intl Traveler<30days: No Traveled to known affect area: No History of Present Illness HPI This 77-year-old female is complaining of shortness of breath. She says she's been short of breath since yesterday. She had an appointment with her heart doctor today and was advised to come here for evaluation. She has a history of COPD. She has home oxygen but she also smokes occasionally. She's been having some tightness across her chest. She is not aware of fever or chills. She is not having pain. She has a long history of COPD. She had a pacemaker put in recently. She is not aware of history of congestive heart failure. She has had some swelling of her legs. She has not been able to walk more than 10 steps due to her dyspnea PFSH Past Medical History Arthritis: Yes Asthma: No Autoimmune Disease: No Anxiety: No Depression: No Heart Rhythm Problems: No Cancer: No Cardiovascular Problems: Yes (CHF,CAD.[place]) High Cholesterol: Yes Chest Pain: No Congestive Heart Failure: Yes COPD: Yes (2L O2 dependent at home) Cerebrovascular Accident: No Coronary Artery Disease: No Diabetes: No Diminished Hearing: Yes ([place]) Endocrine: No Gastrointestinal Disorders: Yes GERD: Yes Genitourinary: No Headaches: No Hiatal Hernia: No Heparin Induced Thrombocytopen: No Hypertension: Yes Immune Disorder: No Implanted Vascular Access Dvce: No Musculoskeletal: Yes Neurologic: Yes Psychiatric: No Reproductive: No Respiratory: Yes (COPD) Migraines: No Seizures: No Sickle Cell Disease: No Sleep Apnea: No Thyroid Disease: Yes (hypo) Ulcer: No Tetanus Vaccination: > 5 Years Influenza Vaccination: Yes Menopausal: Yes Tubal Ligation: Yes Past Surgical History Abdominal Surgery: Yes (APPENDIX, GALL BLADDER) AICD: No Appendectomy: Yes Arteriovenous Shunt: No Cardiac Surgery: Yes (bilateral leg veins stripped ' PACER) Cholecystectomy: Yes Ear Surgery: No Endocrine Surgery: No Eye Surgery: Yes (EYE SURGERY A CHILD, cataracts) Genitourinary Surgery: Yes (BLADDER REPAIR) Gynecologic Surgery: Yes (TUBAL) Insulin Pump: No Joint Replacement: No Neurologic Surgery: No Oral Surgery: Yes (TONSILS REMOVED) Pacemaker: No Thoracic Surgery: No Tonsillectomy: Yes Other Surgery: Yes Social History Alcohol Use: No Tobacco Use: Yes (07/27 PPD) Substance Use: No Allergies-Medications (Allergen,Severity, Reaction): Coded Allergies: tetanus toxoid, adsorbed (Unverified Allergy, Intermediate, RASH, 08/01/17) bupropion (Verified Allergy, Unknown, 08/01/17) shellfish derived (Verified Allergy, Unknown, 08/01/17) Uncoded Allergies: MUSCLE RELAXERS (Allergy, Intermediate, RASH, 11/19/14) . Reported Meds & Prescriptions Reported Meds & Active Scripts Active Reported [Home Oxygen] 2 Liter MARIANELA.CANULA HS Albuterol Neb (Albuterol Sulfate) 0.63 Mg/3 Ml Neb 0.63 Mg NEB Q6HR NEB PRN Advair Hfa 12 GM Inh (Fluticasone-Salmeterol 12 GM Inh) 115-21 Mcg/Act Aer 2 Puff INH BID Potassium Chloride ER (Potassium Chloride) 10 Meq Cap 10 Meq PO DAILY Metoprolol Tartrate 25 Mg Tab 12.5 Mg PO BID Aspirin 81 Mg Chew 81 Mg CHEW DAILY Ranitidine (Ranitidine HCl) 150 Mg Tab 150 Mg PO DAILY Furosemide 20 Mg Tab 20 Mg PO DAILY Lisinopril 5 Mg Tab 5 Mg PO DAILY Review of Systems Except as stated in HPI: all other systems reviewed are Neg General / Constitutional: No: Fever, Chills Eyes: No: Diploplia, Blurred Vision HENT: No: Headaches, Vertigo Cardiovascular: Positive: Chest Pain or Discomfort, Tachycardia, Dyspnea on exertion, Edema, No: Palpitations, Irregular Rhythm Respiratory: Positive: Cough, Shortness of Breath, Wheezing Gastrointestinal: No: Vomiting, Diarrhea Genitourinary: No: Urgency, Frequency Musculoskeletal: No: Myalgias, Arthralgias Skin: No Rash, No Itching Neurologic: Positive: Weakness, No: Dizziness Psychiatric: No: Anxiety Hematologic/Lymphatic: No: Easy Bruising Physical Exam Narrative GENERAL: Well-developed female in moderate respiratory distress SKIN: Focused skin assessment warm/dry. HEAD: Atraumatic. Normocephalic. EYES: Pupils equal and round. No scleral icterus. No injection or drainage. ENT: No nasal bleeding or discharge. Mucous membranes pink and moist. NECK: Trachea midline. No JVD. CARDIOVASCULAR: Rapid Regular rate and rhythm. No murmur appreciated. RESPIRATORY: There is accessory muscle use. There are scattered rhonchi GASTROINTESTINAL: Abdomen soft, non-tender, nondistended. Hepatic and splenic margins not palpable. MUSCULOSKELETAL: No obvious deformities. No clubbing. No cyanosis. Bilateral pedal edema NEUROLOGICAL: Awake and alert. No obvious cranial nerve deficits. Motor grossly within normal limits. Normal speech. PSYCHIATRIC: Appropriate mood and affect; insight and judgment normal. Data Data Last Documented VS Vital Signs Date Time Temp Pulse Resp B/P (MAP) Pulse Ox O2 Delivery O2 Flow Rate FiO2 08/01/17 13:46 96 Nasal Cannula 2.00 08/01/17 13:42 08/01/17 13:37 97.8 118 26 Orders Orders Complete Blood Count With Diff (08/01/17 13:37) Comprehensive Metabolic Panel (08/01/17 13:37) B-Type Natriuretic Peptide (08/01/17 13:37) Act Partial Throm Time (Ptt) (08/01/17 13:37) Prothrombin Time / Inr (Pt) (08/01/17 13:37) Magnesium (Mg) (08/01/17 13:37) Troponin I (08/01/17 13:37) Urinalysis - C+S If Indicated (08/01/17 13:37) Influenzae A/B Antigen (08/01/17 13:37) Blood Culture (08/01/17 13:37) Iv Access Insert/Monitor (08/01/17 13:37) Electrocardiogram (08/01/17 13:37) Ecg Monitoring (08/01/17 13:37) Oximetry (08/01/17 13:37) Oxygen Administration (08/01/17 13:37) Chest, Single Ap (08/01/17 13:37) Sodium Chloride 0.9% Flush (Ns Flush) (08/01/17 13:45) Methylprednisolone So Succ Inj (Solumedr (08/01/17 13:45) Albuterol-Ipratropium Neb (Duoneb Neb) (08/01/17 13:45) Labs Laboratory Tests Test 08/01/17 13:45 White Blood Count 7.5 TH/MM3 Red Blood Count 4.48 MIL/MM3 Hemoglobin 10.2 GM/DL Hematocrit 33.5 % Mean Corpuscular Volume 74.7 FL Mean Corpuscular Hemoglobin 22.8 PG Mean Corpuscular Hemoglobin Concent 30.5 % Red Cell Distribution Width 14.3 % Platelet Count 228 TH/MM3 Mean Platelet Volume 7.8 FL Neutrophils (%) (Auto) 66.1 % Lymphocytes (%) (Auto) 22.8 % Monocytes (%) (Auto) 6.3 % Eosinophils (%) (Auto) 4.3 % Basophils (%) (Auto) 0.5 % Neutrophils # (Auto) 5.0 TH/MM3 Lymphocytes # (Auto) 1.7 TH/MM3 Monocytes # (Auto) 0.5 TH/MM3 Eosinophils # (Auto) 0.3 TH/MM3 Basophils # (Auto) 0.0 TH/MM3 CBC Comment AUTO DIFF Differential Comment AUTO DIFF CONFIRMED Platelet Estimate NORMAL Platelet Morphology Comment NORMAL Ovalocytes 1+ Rouleau PRESENT Prothrombin Time 10.6 SEC Prothromb Time International Ratio 1.0 RATIO Activated Partial Thromboplast Time 23.3 SEC Blood Urea Nitrogen 17 MG/DL Creatinine 0.89 MG/DL Random Glucose 163 MG/DL Total Protein 7.4 GM/DL Albumin 3.1 GM/DL Calcium Level 8.6 MG/DL Magnesium Level 2.2 MG/DL Alkaline Phosphatase 76 U/L Aspartate Amino Transf (AST/SGOT) 15 U/L Alanine Aminotransferase (ALT/SGPT) 16 U/L Total Bilirubin 0.3 MG/DL Sodium Level 139 MEQ/L Potassium Level 4.1 MEQ/L Chloride Level 101 MEQ/L Carbon Dioxide Level 33.0 MEQ/L Anion Gap 5 MEQ/L Estimat Glomerular Filtration Rate 61 ML/MIN Troponin I LESS THAN 0.02 NG/ML B-Type Natriuretic Peptide 29 PG/ML MDM Medical Decision Making Medical Screen Exam Complete: Yes Emergency Medical Condition: Yes Medical Record Reviewed: Yes Differential Diagnosis Differential includes pneumonia, CHF, COPD exacerbation Narrative Course Chest x-ray is negative. BNP is 29. Blood sugar is 163. Patient has been given Solu-Medrol and 3 nebulizer treatments. She has persistent rhonchi and occasional wheeze. She has persistent tachycardia at 118 Diagnosis Primary Impression: COPD exacerbation Admitting Information Admitting Physician Requests: Adeel Davis MD Aug 01, 2017 13:40
[2017-08-01] MEDS ORDERED: SODIUM CHLORIDE 0.9% FLUSH 10 ML FLUSH IVF PRN (13:45)
[2017-08-01] MEDS ORDERED: methylPREDNISolone SOD SUCC 125 MG/2 ML VIAL IV PUSH ONE (13:45)
[2017-08-01] MEDS: RESP: ALBUTEROL 2.5 MG/IPRATROPIUM 0.5 MG NEB (SCH) INH ×2 (13:45→13:46)
[2017-08-01 13:52] LABS: BASOPHIL % 0.5 % (0.0-2.0); EOSINOPHIL # 0.3 TH/MM3 (0-0.4); EOSINOPHIL % 4.3 % (0.0-4.0); HEMATOCRIT 33.5 % (35.0-46.0); HEMOGLOBIN 10.2 GM/DL (11.6-15.3); LYMPH % 22.8 % (9.0-44.0); LYMPHOCYTE # 1.7 TH/MM3 (1.0-4.8); MEAN CELL VOLUME 74.7 FL (80.0-100.0); MEAN CORPUSCULAR HEMOGLOBIN 22.8 PG (27.0-34.0); MEAN CORPUSCULAR HGB CONC 30.5 % (32.0-36.0); MEAN PLATELET VOLUME 7.8 FL (7.0-11.0); MONO % 6.3 % (0.0-8.0); MONOCYTE # 0.5 TH/MM3 (0-0.9); NEUT % 66.1 % (16.0-70.0); PLATELET COUNT 228 TH/MM3 (150-450); RED BLOOD COUNT 4.48 MIL/MM3 (4.00-5.30); RED CELL DISTRIBUTION WIDTH 14.3 % (11.6-17.2); WHITE BLOOD COUNT 7.5 TH/MM3 (4.0-11.0)
[2017-08-01 13:59] LABS: CHLORIDE 101 MEQ/L (98-107); SODIUM (NA) 139 MEQ/L (136-145)
[2017-08-01 14:03] LABS: ALBUMIN 3.1 GM/DL (3.4-5.0); BLOOD UREA NITROGEN 17 MG/DL (7-18); CALCIUM 8.6 MG/DL (8.5-10.1); GLUCOSE,RANDOM 163 MG/DL (74-106); MAGNESIUM 2.2 MG/DL (1.5-2.5)
[2017-08-01 14:06] LABS: ALT (GPT) 16 U/L (10-53); AST (GOT) 15 U/L (15-37); CREATININE 0.89 MG/DL (0.50-1.00); GLOMERULAR FILTRATION RATE 61 ML/MIN (>89)
--- NOTE | 2017-08-01 14:07 | RADRPT ---
EXAM DATE/TIME: 08/01/2017 13:40 [facility] COMPARISON: CHEST SINGLE AP, May 11, 2017, 18:10. INDICATIONS : Short of breath. MEDICAL HISTORY : Chronic obstructive pulmonary disease. Congestive heart failure. Hypertension. SURGICAL HISTORY : Pacemaker. ENCOUNTER: Initial ACUITY: 3 days PAIN SCORE: 0/10 LOCATION: Bilateral chest FINDINGS: Pacemaker device is noted with control pack over the left chest. Lungs are focally clear. No pleural effusion is evident. Cardiomediastinal contours are stable and satisfactory. CONCLUSION: No acute disease Mason Joseph MD on August 01, 2017 at 14:03 Board Certified Radiologist. This report was verified electronically.
[2017-08-01 14:08] LABS: TOTAL BILIRUBIN ADULT 0.3 MG/DL (0.2-1.0); TOTAL PROTEIN 7.4 GM/DL (6.4-8.2)
[2017-08-01 14:09] LABS: ALKALINE PHOSPHATASE 76 U/L (45-117)
[2017-08-01 14:11] LABS: TROPONIN I LESS THAN 0.02 NG/ML (0.02-0.05)
[2017-08-01 14:13] LABS: PROTHROMBIN TIME - PATIENT 10.6 SEC (9.8-11.6)
[2017-08-01 14:20] LABS: OVALOCYTES 1+ (NORMAL); ROULEAUX PRESENT (NORMAL)
--- NOTE | 2017-08-01 16:06 | EKG ---
Date Performed: 08/01/2017 Time Performed: 13:29:12 PTAGE: 77 years EKG: ELECTRONIC VENTRICULAR PACEMAKER ABNORMAL RHYTHM ECG PREVIOUS TRACING : 05/11/2017 17.31 Compared to prior tracing no significant change DOCTOR: Latesha Mccain Interpretating Date/Time 08/01/2017 16:06:35
[2017-08-01] MEDS ORDERED: SODIUM CHLORIDE 0.9% FLUSH 10 ML FLUSH IV FLUSH PRN (16:45)
[2017-08-01] MEDS ORDERED: ACETAMINOPHEN 325 MG TAB PO PRN (16:45)
[2017-08-01] MEDS ORDERED: BISACODYL 10 MG SUPP RECTAL PRN (16:45)
[2017-08-01] MEDS ORDERED: NALOXONE HCL 0.4 MG/ML AMP IV PUSH PRN (16:45)
[2017-08-01] MEDS ORDERED: ONDANSETRON HCL 4 MG/2 ML VIAL IVP PRN (17:00)
--- NOTE | 2017-08-01 17:38 | HHI.HP ---
[facility] Tahira Espinal Do, MD Admission Diagnosis COPD EXACERBATION Diagnoses: Chief Complaint: Shortness of breath Travel History International Travel<30 Days: No Contact w/Intl Traveler <30 Da: No Traveled to Known Affected Are: No History of Present Illness This is a pleasant 77-year-old female patient with a known medical history of COPD, hypertension, hyperlipidemia, CHF and CAD who presented to the ED with complaints of worsening shortness of breath. Patient states that she has been increasingly short of breath for the past two days, states that it has worsened over the past twenty-four hours. 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 Does admit to using 2 L nasal cannula at night and as needed, which she states she has been using her home O2 more. Patient follows with Dr. Rivera in the outpatient setting. She does state that about three weeks ago she was prescribed a Z-Abbe and steroids for shortness of breath, patient has noticed improvement up until two days ago. She does admit increasing shortness of breath with activity and noticeable increased bilateral lower extremity swelling. Patient denies any recent fever, cough, chills, sore throat, abdominal pain, nausea, vomiting, diarrhea, dysuria. Does admit to continued tobacco use. Review of Systems Constitutional: DENIES: Fever, Chills Eyes: DENIES: Diplopia Respiratory: COMPLAINS OF: Shortness of breath, DENIES: Cough Cardiovascular: COMPLAINS OF: Lower Extremity Edema, DENIES: Chest pain, Syncope Gastrointestinal: DENIES: Abdominal pain, Bloody stools, Constipation, Diarrhea , Nausea, Vomiting Psychiatric: DENIES: Anxiety Except as stated in HPI: all other systems reviewed are Neg Past Family Social History Past Medical History Chronic obstructive pulmonary disease Tobacco use Past Surgical History Tubal ligation Cholecystectomy Cataract surgery Eye surgery as a child Appendectomy Bladder repair Reported Medications Active Reported [Home Oxygen] 2 Liter MARIANELA.CANULA HS Albuterol Neb (Albuterol Sulfate) 0.63 Mg/3 Ml Neb 0.63 Mg NEB Q6HR NEB PRN Advair Hfa 12 GM Inh (Fluticasone-Salmeterol 12 GM Inh) 115-21 Mcg/Act Aer 2 Puff INH BID Potassium Chloride ER (Potassium Chloride) 10 Meq Cap 10 Meq PO DAILY Metoprolol Tartrate 25 Mg Tab 12.5 Mg PO BID Aspirin 81 Mg Chew 81 Mg CHEW DAILY Ranitidine (Ranitidine HCl) 150 Mg Tab 150 Mg PO DAILY Furosemide 20 Mg Tab 20 Mg PO DAILY Lisinopril 5 Mg Tab 5 Mg PO DAILY Allergies: Coded Allergies: tetanus toxoid, adsorbed (Unverified Allergy, Intermediate, RASH, 08/01/17) bupropion (Verified Allergy, Unknown, 08/01/17) shellfish derived (Verified Allergy, Unknown, 08/01/17) Uncoded Allergies: MUSCLE RELAXERS (Allergy, Intermediate, RASH, 11/19/14) . Active Ordered Medications Current Medications Medications (Trade) Dose Ordered Sig/Katie Route Start Time Stop Time Status Last Admin (NS Flush) 2 ml UNSCH PRN IV FLUSH 08/01/17 16:45 (NS Flush) 2 ml BID IV FLUSH 08/01/17 21:00 (Tylenol) 650 mg Q4H PRN PO 08/01/17 16:45 (Zofran Inj) 4 mg Q6H PRN IVP 08/01/17 17:00 (Narcan Inj) 0.4 mg UNSCH PRN IV PUSH 08/01/17 16:45 (Camila-Colace) 1 tab BID PO 08/01/17 21:00 (Milk Of Magnesia Liq) 30 ml Q12HR PRN PO 08/01/17 21:00 (Senokot) 17.2 mg Q12HR PRN PO 08/01/17 21:00 (Dulcolax Supp) 10 mg DAILY PRN RECTAL 08/01/17 16:45 Family History Reviewed is significant for diabetes and heart disease Social History Does admit to smoking 3-4 cigarettes per day denies any alcohol use denies any illicit drug use. Physical Exam Vital Signs Vital Signs Date Time Temp Pulse Resp B/P (MAP) Pulse Ox O2 Delivery O2 Flow Rate FiO2 08/01/17 17:27 96.7 107 24 126/62 (83) 94 08/01/17 16:59 08/01/17 16:00 98.3 103 18 114/50 (71) 96 Nasal Cannula 2.00 08/01/17 15:58 114 18 96 Nasal Cannula 2.00 08/01/17 15:21 116 22 114/51 (72) 95 Nasal Cannula 2.00 08/01/17 13:46 96 Nasal Cannula 2.00 08/01/17 13:42 100 Nasal Cannula 2.00 08/01/17 13:42 100 Nasal Cannula 2.00 08/01/17 13:37 97.8 118 26 110/52 (71) 100 Nasal Cannula 2.00 08/01/17 13:31 (71) 90 08/01/17 13:27 97.8 118 26 110/52 (71) 100 Nasal Cannula 2.00 08/01/17 13:27 100 Nasal Cannula 2.00 Physical Exam GENERAL: This is a well-nourished, well-developed patient, in no apparent distress. SKIN: No rashes, ecchymoses or lesions. Cool and dry. HEAD: Atraumatic. Normocephalic. No temporal or scalp tenderness. EYES: Pupils equal round and reactive. Extraocular motions intact. No scleral icterus. No injection or drainage. ENT: Nose without bleeding, purulent drainage or septal hematoma. Throat without erythema, tonsillar hypertrophy or exudate. Uvula midline. Airway patent. NECK: Trachea midline. No JVD or lymphadenopathy. Supple, nontender, no meningeal signs. CARDIOVASCULAR: Regular rate and rhythm without murmurs, gallops, or rubs. RESPIRATORY: Clear to auscultation. Breath sounds equal bilaterally. No wheezes , rales, or rhonchi. GASTROINTESTINAL: Abdomen soft, non-tender, nondistended. No hepato-splenomegaly , or palpable masses. No guarding. MUSCULOSKELETAL: Extremities without clubbing, cyanosis, or edema. No joint tenderness, effusion, or edema noted. No calf tenderness. Negative Homans sign bilaterally. NEUROLOGICAL: Awake and alert. Cranial nerves II through XII intact. Motor and sensory grossly within normal limits. Five out of 5 muscle strength in all muscle groups. Normal speech. Laboratory Laboratory Tests Test 08/01/17 13:45 White Blood Count 7.5 Red Blood Count 4.48 Hemoglobin 10.2 Hematocrit 33.5 Mean Corpuscular Volume 74.7 Mean Corpuscular Hemoglobin 22.8 Mean Corpuscular Hemoglobin Concent 30.5 Red Cell Distribution Width 14.3 Platelet Count 228 Mean Platelet Volume 7.8 Neutrophils (%) (Auto) 66.1 Lymphocytes (%) (Auto) 22.8 Monocytes (%) (Auto) 6.3 Eosinophils (%) (Auto) 4.3 Basophils (%) (Auto) 0.5 Neutrophils # (Auto) 5.0 Lymphocytes # (Auto) 1.7 Monocytes # (Auto) 0.5 Eosinophils # (Auto) 0.3 Basophils # (Auto) 0.0 CBC Comment AUTO DIFF Differential Comment AUTO DIFF CONFIRMED Platelet Estimate NORMAL Platelet Morphology Comment NORMAL Ovalocytes 1+ Rouleau PRESENT Prothrombin Time 10.6 Prothromb Time International Ratio 1.0 Activated Partial Thromboplast Time 23.3 Blood Urea Nitrogen 17 Creatinine 0.89 Random Glucose 163 Total Protein 7.4 Albumin 3.1 Calcium Level 8.6 Magnesium Level 2.2 Alkaline Phosphatase 76 Aspartate Amino Transf (AST/SGOT) 15 Alanine Aminotransferase (ALT/SGPT) 16 Total Bilirubin 0.3 Sodium Level 139 Potassium Level 4.1 Chloride Level 101 Carbon Dioxide Level 33.0 Anion Gap 5 Estimat Glomerular Filtration Rate 61 Troponin I LESS THAN 0.02 B-Type Natriuretic Peptide 29 Date/Time Source Procedure Growth Status 08/01/17 13:55 Blood Peripheral Aerobic Blood Culture Pending Received 08/01/17 13:55 Blood Peripheral Anaerobic Blood Culture Pending Received 08/01/17 13:45 Nasal Aspirate Influenza Types A,B Antigen (JOSEFINA) - Final NEGATIVE FOR FLU A AND B ANTIGEN.... Complete Result Diagram: 08/01/17 1345 08/01/17 1345 Imaging Last Impressions Chest X-Ray 08/01/17 1337 Signed Impressions: Service Date/Time: Tuesday, August 01, 2017 13:40 - CONCLUSION: No acute disease Mason Joseph MD Septic Shock Reassessment Septic shock perfusion: reassessment completed Caprini VTE Risk Assessment Caprini VTE Risk Assessment: Mod/High Risk (score >= 2) Caprini Risk Assessment Model Point Value = 1 Point Value = 2 Point Value = 3 Point Value = 5 Age 41-60 Minor surgery BMI > 25 kg/m2 Swollen legs Varicose veins or History of unexplained or recurrent spontaneous Oral contraceptives or hormone replacement Sepsis (< 1 month) Serious lung disease, including pneumonia (< 1 month) Abnormal pulmonary function Acute myocardial infarction Congestive heart failure (< 1 month) History of inflammatory bowel disease Medical patient at bed rest Age 61-74 Arthroscopic surgery Major open surgery (> 45 min) Laparoscopic surgery (> 45 min) Malignancy Confined to bed (> 72 hours) Immobilizing plaster cast Central venous access Age >= 75 History of VTE Family history of VTE Factor V Leiden Prothrombin [id number] Lupus anticoagulant Anticardiolipin antibodies Elevated serum homocysteine Heparin-induced thrombocytopenia Other congenital or acquired thrombophilia Stroke (< 1 month) Elective arthroplasty Hip, pelvis, or leg fracture Acute spinal cord injury (< 1 month) Prophylaxis Regimen Total Risk Factor Score Risk Level Prophylaxis Regimen 0-1 Low Early ambulation 2 Moderate Order ONE of the following: *Sequential Compression Device (SCD) *Heparin 5000 units SQ BID 3-4 Higher Order ONE of the following medications: *Heparin 5000 units SQ TID *Enoxaparin/Lovenox 40 mg SQ daily (WT < 150 kg, CrCl > 30 mL/min) *Enoxaparin/Lovenox 30 mg SQ daily (WT < 150 kg, CrCl > 10-29 mL/min) *Enoxaparin/Lovenox 30 mg SQ BID (WT < 150 kg, CrCl > 30 mL/min) AND/OR *Sequential Compression Device (SCD) 5 or more Highest Order ONE of the following medications: *Heparin 5000 units SQ TID (Preferred with Epidurals) *Enoxaparin/Lovenox 40 mg SQ daily (WT < 150 kg, CrCl > 30 mL/min) *Enoxaparin/Lovenox 30 mg SQ daily (WT < 150 kg, CrCl > 10-29 mL/min) *Enoxaparin/Lovenox 30 mg SQ BID (WT < 150 kg, CrCl > 30 mL/min) AND *Sequential Compression Device (SCD) Assessment and Plan Problem List: (1) Chronic obstructive pulmonary disease with acute exacerbation ICD Code: J44.1 - Chronic obstructive pulmonary disease with (acute) exacerbation Status: Acute Plan: Patient has been admitted under observation. Chest x-ray reviewed, no acute disease noted. Was given Solu-Medrol 125 mg IV in ED. will continue for the next twenty-four hours. Assess response. Duo nebs scheduled and available when necessary for wheezing. BNP reviewed, 29. Underlying CHF, not in exacerbation. Patient is afebrile. Monitor for any signs of infection. White blood cells within normal limits. CBC reviewed, essentially unremarkable. Patient does have chronic anemia. BMP reviewed, essentially unremarkable. Blood cultures drawn and pending. Follow growth. Nasal aspirate negative for flu. Supplemental O2 as needed. Supportive care. (2) Congestive heart failure ICD Code: I50.9 - Heart failure, unspecified Status: Chronic Plan: BNP 29. Continue home Lasix with supplemental potassium. Monitor intake and output. Chest x-ray negative for any congestion. (3) Hypertension ICD Code: I10 - Essential (primary) hypertension Plan: Blood pressure is well controlled. Continue home lisinopril. Monitor BP trends. (4) CAD (coronary artery disease) ICD Code: I25.10 - Atherosclerotic heart disease of [place] coronary artery without angina pectoris Plan: With history of [place]. Continue home aspirin. Supportive care. DVT prophylaxis: SCDs. Heparin. Physician Certification 2 Midnight Certification Type: Admission for Inpatient Services Order for Inpatient Services The services are ordered in accordance with Medicare regulations or non- Medicare payer requirements, as applicable. In the case of services not specified as inpatient-only, they are appropriately provided as inpatient services in accordance with the 2-midnight benchmark. Estimated LOS (days): 2 2 days is the estimated time the patient will need to remain in the hospital, assuming treatment plan goals are met and no additional complications. Post-Hospital Plan: Home Bee Ferrell Aug 01, 2017 17:38
[2017-08-01] MEDS: RESP: ALBUTEROL 2.5 MG/IPRATROPIUM 0.5 MG NEB (SCH) NEB (19:36)
[2017-08-01] MEDS ORDERED: SENNOSIDES 8.6 MG TAB PO PRN (21:00)
[2017-08-01] MEDS ORDERED: MAGNESIUM HYDROXIDE SUSP 30 ML CUP PO PRN (21:00)
[2017-08-01] MEDS: guaiFENesin E.R. 600 MG TAB PO SCH (21:21)
[2017-08-01] MEDS: BUDESONIDE-FORMOTEROL 160/4.5 MCG INHALER INH SCH (21:21)
[2017-08-01] MEDS: SODIUM CHLORIDE 0.9% FLUSH 10 ML FLUSH IV FLUSH SCH (21:21)
[2017-08-01] MEDS: DOCUSATE SODIUM 50 MG/SENNA 8.6 MG TAB PO SCH (21:21)
[2017-08-01] MEDS: FAMOTIDINE 20 MG TAB PO SCH (21:22)
[2017-08-01] MEDS: methylPREDNISolone SOD SUCC 40 MG/1 ML VIAL IV PUSH SCH (21:22)
[2017-08-01] MEDS: HEPARIN SODIUM - SQ 10,000 UNITS/ML VIAL SQ SCH (21:23)
[2017-08-01] MEDS ORDERED: RESP: ALBUTEROL 2.5 MG/IPRATROPIUM 0.5 MG NEB (PRN) NEB (22:00)
[2017-08-01] MEDS ORDERED: ACETAMINOPHEN 325 MG TAB PO ONE (22:15)
[2017-08-02] VITALS: BP 150/78; PULSE 115; RESP 20; TEMP 97.5; O2SAT 97
[2017-08-02 04:00] VITALS: BP 121/64; PULSE 110; RESP 20; TEMP 98.5; O2SAT 96
[2017-08-02] MEDS: methylPREDNISolone SOD SUCC 40 MG/1 ML VIAL IV PUSH SCH (05:33)
[2017-08-02 06:09] LABS: CHLORIDE 101 MEQ/L (98-107); SODIUM (NA) 138 MEQ/L (136-145)
[2017-08-02 06:12] LABS: CALCIUM 8.7 MG/DL (8.5-10.1)
[2017-08-02 06:13] LABS: ALBUMIN 2.8 GM/DL (3.4-5.0); BICARBONATE 32.3 MEQ/L (21.0-32.0); BLOOD UREA NITROGEN 24 MG/DL (7-18); GLUCOSE,RANDOM 163 MG/DL (74-106)
[2017-08-02 06:16] LABS: ALT (GPT) 12 U/L (10-53); AST (GOT) 15 U/L (15-37); CREATININE 0.69 MG/DL (0.50-1.00); GLOMERULAR FILTRATION RATE 82 ML/MIN (>89)
[2017-08-02 06:18] LABS: TOTAL BILIRUBIN ADULT 0.3 MG/DL (0.2-1.0); TOTAL PROTEIN 6.7 GM/DL (6.4-8.2)
[2017-08-02 06:19] LABS: ALKALINE PHOSPHATASE 64 U/L (45-117)
[2017-08-02 08:00] VITALS: BP 122/60; PULSE 121; RESP 18; TEMP 97; O2SAT 96
[2017-08-02 08:07] VITALS: PULSE 101
[2017-08-02] MEDS: RESP: ALBUTEROL 2.5 MG/IPRATROPIUM 0.5 MG NEB (SCH) NEB ×2 (08:09→12:08)
[2017-08-02 08:11] VITALS: O2SAT 98
[2017-08-02] MEDS ORDERED: POTASSIUM CHLORIDE 10 MEQ CAP PO SCH (09:00)
[2017-08-02] MEDS: DOCUSATE SODIUM 50 MG/SENNA 8.6 MG TAB PO SCH (09:00)
[2017-08-02] MEDS ORDERED: FUROSEMIDE 20 MG TAB PO SCH (09:00)
[2017-08-02] MEDS ORDERED: ASPIRIN 81 MG CHEW TAB CHEW SCH (09:00)
[2017-08-02] MEDS ORDERED: LISINOPRIL 5 MG TAB PO SCH (09:00)
--- NOTE | 2017-08-02 09:26 | HHI.PR ---
Subjective Remarks Follow-up COPD exacerbation. Patient seen and examined, sitting up in chair comfortably on 2 L nasal cannula. Denies any acute events overnight. Shortness of breath relieved. States she feels much better. Eating well. Denies any murmurs, chills, shortness of breath, chest pain, abdominal pain, nausea, vomiting. Objective Vitals Vital Signs Date Time Temp Pulse Resp B/P (MAP) Pulse Ox O2 Delivery O2 Flow Rate FiO2 08/02/17 08:11 98 Nasal Cannula 08/02/17 04:00 98.5 110 20 121/64 (83) 96 08/02/17 00:00 97.5 115 20 150/78 (102) 97 08/01/17 20:00 96.7 114 20 133/62 (85) 98 08/01/17 20:00 123 08/01/17 19:36 96 Nasal Cannula 2.00 08/01/17 17:27 96.7 107 24 126/62 (83) 94 08/01/17 16:59 08/01/17 16:00 98.3 103 18 114/50 (71) 96 Nasal Cannula 2.00 08/01/17 15:58 114 18 96 Nasal Cannula 2.00 08/01/17 15:21 116 22 114/51 (72) 95 Nasal Cannula 2.00 08/01/17 13:46 96 Nasal Cannula 2.00 08/01/17 13:42 100 Nasal Cannula 2.00 08/01/17 13:42 100 Nasal Cannula 2.00 08/01/17 13:37 97.8 118 26 110/52 (71) 100 Nasal Cannula 2.00 08/01/17 13:31 (71) 90 08/01/17 13:27 97.8 118 26 110/52 (71) 100 Nasal Cannula 2.00 08/01/17 13:27 100 Nasal Cannula 2.00 I/O 08/01/17 08/01/17 08/01/17 08/02/17 08/02/17 08/02/17 07:00 15:00 23:00 07:00 15:00 23:00 Intake Total 240 ml Balance 240 ml Intake Oral 240 ml # Voids 3 # Bowel Movements 0 Result Diagram: 08/01/17 1345 08/02/17 0535 Imaging Last Impressions Chest X-Ray 08/01/17 1337 Signed Impressions: Service Date/Time: Tuesday, August 01, 2017 13:40 - CONCLUSION: No acute disease Mason Joseph MD Objective Remarks GENERAL: This is a well-nourished, well-developed patient, in no apparent distress. SKIN: No rashes, ecchymoses or lesions. Cool and dry. HEAD: Atraumatic. Normocephalic. EYES: Pupils equal round and reactive. Extraocular motions intact. No scleral icterus. No injection or drainage. ENT: Nose without bleeding, purulent drainage or septal hematoma. Throat without erythema, tonsillar hypertrophy or exudate. Uvula midline. Airway patent. NECK: Trachea midline. No JVD. Supple. CARDIOVASCULAR: Regular rate and rhythm without murmurs, gallops, or rubs. RESPIRATORY: Clear to auscultation. Breath sounds equal bilaterally. Left posterior upper lobe expiratory wheeze noted. Wheezing much improved today. GASTROINTESTINAL: Abdomen soft, non-tender, nondistended. No guarding. MUSCULOSKELETAL: Extremities without clubbing, cyanosis, or edema. No joint tenderness, effusion, or edema noted. NEUROLOGICAL: Awake and alert. Cranial nerves II through XII intact. Motor and sensory grossly within normal limits. Five out of 5 muscle strength in all muscle groups. Normal speech. A/P Problem List: (1) Chronic obstructive pulmonary disease with acute exacerbation ICD Code: J44.1 - Chronic obstructive pulmonary disease with (acute) exacerbation Status: Acute Plan: Patient has been admitted under observation. Chest x-ray reviewed, no acute disease noted. Solu-Medrol continued, patient doing much better today. Duo nebs scheduled and available when necessary for wheezing. BNP reviewed, 29. Underlying CHF, not in exacerbation. Patient is afebrile. Monitor for any signs of infection. White blood cells within normal limits. I don't signs stable. CBC reviewed, essentially unremarkable. Patient does have chronic anemia. BMP reviewed, essentially unremarkable. Blood cultures drawn and pending. Follow growth. Nasal aspirate negative for flu. Supplemental O2 as needed. Supportive care. (2) Congestive heart failure ICD Code: I50.9 - Heart failure, unspecified Status: Chronic Plan: BNP 29. Continue home Lasix with supplemental potassium. Monitor intake and output. Chest x-ray negative for any congestion. (3) Hypertension ICD Code: I10 - Essential (primary) hypertension Plan: Blood pressure is well controlled. Continue home lisinopril. Monitor BP trends. (4) CAD (coronary artery disease) ICD Code: I25.10 - Atherosclerotic heart disease of [place] coronary artery without angina pectoris Plan: With history of [place]. Continue home aspirin. Supportive care. DVT prophylaxis: SCDs. Heparin. Discharge Planning Possible discharge later today after lunch. Will continue to wean IV steroids. Bee Ferrell Aug 02, 2017 09:26
[2017-08-02] MEDS ORDERED: POTASSIUM CHLORIDE 10 MEQ CONTROLLED RELEASE TAB PO SCH (10:00)
[2017-08-02] MEDS: BUDESONIDE-FORMOTEROL 160/4.5 MCG INHALER INH SCH (10:08)
[2017-08-02] MEDS: SODIUM CHLORIDE 0.9% FLUSH 10 ML FLUSH IV FLUSH SCH (10:08)
[2017-08-02] MEDS: FAMOTIDINE 20 MG TAB PO SCH (10:09)
[2017-08-02] MEDS: HEPARIN SODIUM - SQ 10,000 UNITS/ML VIAL SQ SCH (10:10)
[2017-08-02] MEDS: guaiFENesin E.R. 600 MG TAB PO SCH (10:13)
[2017-08-02] MEDS ORDERED: guaiFENesin ER PO (11:01)
[2017-08-02] MEDS ORDERED: PRED20 PO (11:01)
--- NOTE | 2017-08-02 11:01 | HHI.DCPOC ---
Discharge Care Plan Diagnosis: (1) Chronic obstructive pulmonary disease with acute exacerbation Your Health Problems Are: Shortness of Breath Goals to Promote Your Health * To prevent worsening of your condition and complications * To maintain your health at the optimal level Directions to Meet Your Goals Take your medications as prescribed Follow your dietary instruction Follow activity as directed Keep your appointments as scheduled Take your immunizations and boosters as scheduled If your symptoms worsen call your PCP, if no PCP go to Urgent Care Center or Emergency Room Smoking is Dangerous to Your Health. Avoid second hand smoke Call the 24-hour hour crisis hotline for domestic abuse at Bee Ferrell Aug 02, 2017 11:01
[2017-08-02] MEDS ORDERED: methylPREDNISolone SOD SUCC 125 MG/2 ML VIAL IV PUSH SCH (12:00)
[2017-08-02 13:44] VITALS: RESP 18
== END 2017-08-02 13:28 | disposition home or self-care (01) ==
LOC: PHEFT 13:14 → PHEDA 15:31 → PH3A 17:03
PROVIDERS: ADMIT Hospitalist; ATTEND Hospitalist
DX: J44.1 Chronic obstructive pulmonary disease with (acute) exacerbation (principal); I11.0 Hypertensive heart disease with heart failure; I50.9 Heart failure, unspecified; D64.9 Anemia, unspecified; R00.0 Tachycardia, unspecified; R94.31 Abnormal electrocardiogram [ECG] [EKG]; I25.10 Atherosclerotic heart disease of native coronary artery without angina pectoris; I25.2 Old myocardial infarction; E78.00 Pure hypercholesterolemia, unspecified; E03.9 Hypothyroidism, unspecified; K21.9 Gastro-esophageal reflux disease without esophagitis; M19.90 Unspecified osteoarthritis, unspecified site; H91.90 Unspecified hearing loss, unspecified ear; F17.210 Nicotine dependence, cigarettes, uncomplicated; Z99.81 Dependence on supplemental oxygen; Z79.899 Other long term (current) drug therapy; Z79.82 Long term (current) use of aspirin
CPT/HCPCS: 71045; 80053; 83735; 83880; 84484; 85025; 85610; 85730; 87040; 87804; 93005; 94640; 94664; 96372; 96374; 96376; 97162; 99285; G0378; G8987; G8988; J1644; J2920; J2930

== ENCOUNTER 2017-08-16 16:48 | Inpatient (IN) | payer OTHER, MEDICARE ==
[2017-08-16] VITALS (12 sets, daily range): BP systolic 87–117; BP diastolic 44–67; PULSE 100–136; RESP 20–30; TEMP 97.7–102.4; O2SAT 89–98
[~2017-08-16] VITALS: Ht 152.4 cm; Wt 57.6 kg
[~2017-08-16 16:48] MED LIST changes: -ALBU6.7H INH; -PRED-503 PO; +PRED20 PO; -ZITHTAB PO; +guaiFENesin ER PO
--- NOTE | 2017-08-16 17:09 | PD ---
HPI Chief Complaint: Respiratory Distress Time Seen by Provider: 16:58 Travel History International Travel<30 days: No Contact w/Intl Traveler<30days: No Traveled to known affect area: No History of Present Illness HPI 77-year-old female with history of COPD on home O2 at night, CHF, here for evaluation of shortness of breath, nonproductive cough, generalized weakness. Symptoms started yesterday. Shortness of breath is at rest, worse with exertion. Her symptoms not improve with home therapies. She is having some chest tightness which is very mild. Her chief environmental commitment officer is Dr. Rivera. She is unsure if she has had a fever. No history of DVT or PE. PFSH Past Medical History Arthritis: Yes Asthma: No Autoimmune Disease: No Anxiety: No Depression: No Heart Rhythm Problems: No Cancer: No Cardiovascular Problems: Yes (CHF,CAD.AR) High Cholesterol: Yes Chest Pain: No Congestive Heart Failure: Yes COPD: Yes (2L O2 dependent at home) Cerebrovascular Accident: No Coronary Artery Disease: Yes Diabetes: No Diminished Hearing: Yes ([place]) Endocrine: No Gastrointestinal Disorders: Yes GERD: Yes Genitourinary: No Headaches: No Hiatal Hernia: No Heparin Induced Thrombocytopen: No Hypertension: Yes Immune Disorder: No Implanted Vascular Access Dvce: No Musculoskeletal: Yes Neurologic: Yes Psychiatric: No Reproductive: No Respiratory: Yes (COPD) Migraines: No Seizures: No Sickle Cell Disease: No Sleep Apnea: No Thyroid Disease: Yes (hypo) Ulcer: No Influenza Vaccination: Yes ?: Not Menopausal: Yes Tubal Ligation: Yes Past Surgical History Abdominal Surgery: Yes (APPENDIX, GALL BLADDER) AICD: No Appendectomy: Yes Arteriovenous Shunt: No Cardiac Surgery: Yes (bilateral leg veins stripped ' PACER) Cholecystectomy: Yes Ear Surgery: No Endocrine Surgery: No Eye Surgery: Yes (EYE SURGERY A CHILD, cataracts) Genitourinary Surgery: Yes (BLADDER REPAIR) Gynecologic Surgery: Yes (TUBAL) Insulin Pump: No Joint Replacement: No Neurologic Surgery: No Oral Surgery: Yes (TONSILS REMOVED) Pacemaker: No Thoracic Surgery: No Tonsillectomy: Yes Other Surgery: Yes Social History Alcohol Use: No Tobacco Use: Yes (07/27 PPD) Substance Use: No Allergies-Medications (Allergen,Severity, Reaction): Coded Allergies: tetanus toxoid, adsorbed (Unverified Allergy, Intermediate, RASH, 08/16/17) bupropion (Verified Allergy, Unknown, 08/16/17) shellfish derived (Verified Allergy, Unknown, 08/16/17) Uncoded Allergies: MUSCLE RELAXERS (Allergy, Intermediate, RASH, 11/19/14) . Reported Meds & Prescriptions Reported Meds & Active Scripts Active Reported [Home Oxygen] 2 Liter MARIANELA.CANULA HS Albuterol Neb (Albuterol Sulfate) 0.63 Mg/3 Ml Neb 0.63 Mg NEB Q6HR NEB PRN Advair Hfa 12 GM Inh (Fluticasone-Salmeterol 12 GM Inh) 115-21 Mcg/Act Aer 2 Puff INH BID Potassium Chloride ER (Potassium Chloride) 10 Meq Cap 10 Meq PO DAILY Metoprolol Tartrate 25 Mg Tab 12.5 Mg PO BID Aspirin 81 Mg Chew 81 Mg CHEW DAILY Ranitidine (Ranitidine HCl) 150 Mg Tab 150 Mg PO BID Furosemide 20 Mg Tab 20 Mg PO DAILY Lisinopril 5 Mg Tab 5 Mg PO DAILY Review of Systems Except as stated in HPI: all other systems reviewed are Neg Physical Exam Narrative GENERAL: Well-developed, elderly appearing female, mild respiratory distress. SKIN: Focused skin assessment warm/dry. HEAD: Atraumatic. Normocephalic. EYES: Pupils equal and round. No scleral icterus. No injection or drainage. ENT: Mucous membranes pink and moist. NECK: Trachea midline. No JVD. CARDIOVASCULAR: Tachycardic, regular. RESPIRATORY: Mild respiratory distress. Speaking full sentences. Poor air movement bilaterally. Inspiratory and expiratory wheezes bilaterally. Slight bibasilar rales. GASTROINTESTINAL: Abdomen soft, non-tender, nondistended. MUSCULOSKELETAL: No obvious deformities. No clubbing. No cyanosis. Moderate bilateral lower extremity edema. NEUROLOGICAL: Awake and alert. No obvious cranial nerve deficits. Motor grossly within normal limits. Normal speech. PSYCHIATRIC: Appropriate mood and affect; insight and judgment normal. Data Data Last Documented VS Vital Signs Date Time Temp Pulse Resp B/P (MAP) Pulse Ox O2 Delivery O2 Flow Rate FiO2 08/16/17 19:12 98.1 124 20 109/46 (67) 96 Nasal Cannula 3.00 Orders Orders Complete Blood Count With Diff (08/16/17 17:04) Comprehensive Metabolic Panel (08/16/17 17:04) B-Type Natriuretic Peptide (08/16/17 17:04) Act Partial Throm Time (Ptt) (08/16/17 17:04) Prothrombin Time / Inr (Pt) (08/16/17 17:04) Ckmb (Isoenzyme) Profile (08/16/17 17:04) Troponin I (08/16/17 17:04) Influenzae A/B Antigen (08/16/17 17:04) Iv Access Insert/Monitor (08/16/17 17:04) Ecg Monitoring (08/16/17 17:04) Oximetry (08/16/17 17:04) Oxygen Administration (08/16/17 17:04) Chest, Single Ap (08/16/17 17:04) Sodium Chloride 0.9% Flush (Ns Flush) (08/16/17 17:15) Methylprednisolone So Succ Inj (Solumedr (08/16/17 17:15) Albuterol-Ipratropium Neb (Duoneb Neb) (08/16/17 17:15) Electrocardiogram (08/16/17 ) Lactic Acid Sepsis Protocol (08/16/17 17:10) Urinalysis - C+S If Indicated (08/16/17 17:10) Acetaminophen (Tylenol) (08/16/17 17:15) Ceftriaxone Inj (Rocephin Inj) (08/16/17 17:15) Azithromycin Inj (Zithromax Inj) (08/16/17 17:15) Blood Culture (08/16/17 17:11) Sodium Chlor 0.9% 1000 Ml Inj (Ns 1000 M (08/16/17 18:00) CKMB (08/16/17 17:35) CKMB% (08/16/17 17:35) Oseltamivir (Tamiflu) (08/16/17 18:45) Ct Pulmonary Angiogram (08/16/17 18:41) Iohexol 350 Inj (Omnipaque 350 Inj) (08/16/17 19:56) Sodium Chlor 0.9% 1000 Ml Inj (Ns 1000 M (08/16/17 20:15) Labs Laboratory Tests Test 08/16/17 17:20 08/16/17 17:35 Urine Color YELLOW Urine Turbidity CLEAR Urine pH 5.5 Urine Specific Roberts 1.015 Urine Protein NEG mg/dL Urine Glucose (UA) NEG mg/dL Urine Ketones NEG mg/dL Urine Occult Blood SMALL Urine Nitrite NEG Urine Bilirubin NEG Urine Leukocyte Esterase NEG Urine RBC 0-3 /hpf Urine WBC 0-2 /hpf Urine Squamous Epithelial Cells 0-5 /hpf Urine Hyaline Casts 20-24 /lpf Urine Mucus FEW /lpf Microscopic Urinalysis Comment CATH-CULT NOT IND White Blood Count 15.8 TH/MM3 Red Blood Count 4.77 MIL/MM3 Hemoglobin 10.9 GM/DL Hematocrit 35.0 % Mean Corpuscular Volume 73.3 FL Mean Corpuscular Hemoglobin 22.9 PG Mean Corpuscular Hemoglobin Concent 31.3 % Red Cell Distribution Width 15.2 % Platelet Count 157 TH/MM3 Mean Platelet Volume 8.5 FL Neutrophils (%) (Auto) 80.3 % Lymphocytes (%) (Auto) 7.5 % Monocytes (%) (Auto) 11.2 % Eosinophils (%) (Auto) 0.2 % Basophils (%) (Auto) 0.8 % Neutrophils # (Auto) 12.7 TH/MM3 Lymphocytes # (Auto) 1.2 TH/MM3 Monocytes # (Auto) 1.8 TH/MM3 Eosinophils # (Auto) 0.0 TH/MM3 Basophils # (Auto) 0.1 TH/MM3 CBC Comment AUTO DIFF Differential Comment AUTO DIFF CONFIRMED Prothrombin Time 10.8 SEC Prothromb Time International Ratio 1.1 RATIO Activated Partial Thromboplast Time 23.3 SEC Blood Urea Nitrogen 35 MG/DL Creatinine 0.97 MG/DL Random Glucose 102 MG/DL Total Protein 7.5 GM/DL Albumin 2.8 GM/DL Calcium Level 8.3 MG/DL Alkaline Phosphatase 64 U/L Aspartate Amino Transf (AST/SGOT) 34 U/L Alanine Aminotransferase (ALT/SGPT) 20 U/L Total Bilirubin 0.5 MG/DL Sodium Level 132 MEQ/L Potassium Level 5.0 MEQ/L Chloride Level 97 MEQ/L Carbon Dioxide Level 27.3 MEQ/L Anion Gap 8 MEQ/L Estimat Glomerular Filtration Rate 56 ML/MIN Lactic Acid Level 1.4 mmol/L Total Creatine Kinase 213 U/L Creatine Kinase MB 1.7 NG/ML Creatine Kinase MB % 0.8 % Troponin I LESS THAN 0.02 NG/ML B-Type Natriuretic Peptide 32 PG/ML MDM Medical Decision Making Medical Screen Exam Complete: Yes Emergency Medical Condition: Yes Differential Diagnosis Sepsis, pneumonia, influenza, COPD exacerbation, pulmonary edema, CHF, PE, ACS Narrative Course Initial vital signs show heart rate 120, blood pressure 117/54, pulse ox 89% on room air, rectal temp of 102.4F. Sepsis protocol initiated. Chest x-ray read as lungs are inflated but clear. Given history of CHF with lower extremity edema on exam, normal saline bolus was withheld until chest x-ray was read as clear without pulmonary edema. Patient was empirically written for Rocephin and azithromycin for her respiratory symptoms and fever. She was given a liter of normal saline IV. She was also given a dose of Tamiflu for fever and respiratory symptoms. CBC: WBC 15.8, hemoglobin 10.9, hematocrit 35, platelets 157, neutrophils 80.3% , monocytes 11.2%. CMP is remarkable for sodium 132, chloride 97, BUN 35, GFR 56, otherwise unremarkable. Cardiac enzymes are negative. Lactic acid is 1.4. BNP is 32. UA is not suggestive of UTI. Influenza is negative. Patient was given 3 DuoNeb treatments and IV Solu-Medrol and on reassessment she reports that her respiratory status is significantly improved. Her wheezes have improved. There is no accessory muscle use. She is speaking full sentences. She is still tachycardic with a heart rate of 120. This might be secondary to recent albuterol, however she presented tachycardic with a fever of 102.6F. CT pulmonary angiogram will be ordered to rule out a PE. CT pulmonary angiogram: CONCLUSION: 1. Negative for pulmonary embolus. 2. Extensive peribronchial thickening with distal airway disease especially at the lung bases. Finding could represent atypical mycobacterial disease. 3. Moderate coronary calcifications. Blood pressure is on the lower and between 90 and 106 systolic and her heart rate remains elevated at around 1 04/23/20. Again the patient reports feeling significantly improved after receiving the DuoNeb treatments. I discussed the case with grey goods tester Dr. Shah who has agreed to admit the patient to her service. She will like the patient to be admitted to the main [facility]. Patient made aware of this plan. Diagnosis Primary Impression: Sepsis Qualified Codes: A41.9 - Sepsis, unspecified organism Additional Impressions: Influenza-like illness COPD exacerbation Admitting Information Admitting Physician Requests: Admit Navarro Jordan MD Aug 16, 2017 17:09
[2017-08-16] MEDS ORDERED: SODIUM CHLORIDE 0.9% FLUSH 10 ML FLUSH IVF PRN (17:15)
[2017-08-16] MEDS ORDERED: cefTRIAXone INJ 1,000 MG in SODIUM CHLORIDE 0.9% INJ 100 ML IV ONE (17:15)
[2017-08-16] MEDS ORDERED: AZITHROMYCIN INJ 500 MG in SODIUM CHLOR 0.9% 250 ML INJ 250 ML IV ONE (17:15)
[2017-08-16] MEDS ORDERED: ACETAMINOPHEN 325 MG TAB PO ONE (17:15)
[2017-08-16] MEDS ORDERED: methylPREDNISolone SOD SUCC 125 MG/2 ML VIAL IV PUSH ONE (17:15)
[2017-08-16] MEDS: RESP: ALBUTEROL 2.5 MG/IPRATROPIUM 0.5 MG NEB (SCH) INH ×2 (17:19→17:20)
[2017-08-16 17:40] LABS: BILIRUBIN, URINE NEG (NEG); BLOOD, URINE SMALL (NEG); GLUCOSE,URINE NEG (NEG); KETONE, URINE NEG (NEG); NITRITE,URINE NEG (NEG); PH, URINE 5.5 (5.0-8.5); URINE LEUKOCYTE ESTERASE NEG (NEG)
--- NOTE | 2017-08-16 17:47 | RADRPT ---
EXAM DATE/TIME: 08/16/2017 17:24 [facility] COMPARISON: CHEST SINGLE AP, August 01, 2017, 13:40. INDICATIONS : Shortness of breath. MEDICAL HISTORY : None. SURGICAL HISTORY : Pacemaker. ENCOUNTER: Initial ACUITY: 1 day PAIN SCORE: 0/10 LOCATION: Bilateral chest FINDINGS: Pacer in good position. Lungs are hyperinflated but clear. Heart and vascularity are normal. Bone infarct proximal left humerus. CONCLUSION: Lungs hyperinflated but clear Kevan Feliciano MD FACR on August 16, 2017 at 17:44 Board Certified Radiologist. This report was verified electronically.
[2017-08-16 17:54] LABS: CHLORIDE 97 MEQ/L (98-107); SODIUM (NA) 132 MEQ/L (136-145)
[2017-08-16 17:57] LABS: INTERNATIONAL NORMALIZED RATIO 1.1 RATIO; PROTHROMBIN TIME - PATIENT 10.8 SEC (9.8-11.6)
[2017-08-16 17:58] LABS: ALBUMIN 2.8 GM/DL (3.4-5.0); BICARBONATE 27.3 MEQ/L (21.0-32.0); CALCIUM 8.3 MG/DL (8.5-10.1); GLUCOSE,RANDOM 102 MG/DL (74-106)
[2017-08-16 17:58] LABS: URINE COLOR YELLOW (YELLW/STRAW)
[2017-08-16 17:59] LABS: MUCUS URINE FEW /lpf (OCC)
[2017-08-16 17:59] LABS: BLOOD UREA NITROGEN 35 MG/DL (7-18)
[2017-08-16 18:00] LABS: RBC, URINE 0-3 /hpf (0-3); SQUAMOUS EPITHELIAL CELL URINE 0-5 /hpf (0-5); WBC, URINE 0-2 /hpf (0-5)
[2017-08-16] MEDS ORDERED: SODIUM CHLOR 0.9% 1000 ML INJ 1,000 ML IV ONE ×2 (18:00→20:15)
[2017-08-16 18:01] LABS: ALT (GPT) 20 U/L (10-53); AST (GOT) 34 U/L (15-37); CREATININE 0.97 MG/DL (0.50-1.00); GLOMERULAR FILTRATION RATE 56 ML/MIN (>89)
[2017-08-16 18:02] LABS: TOTAL BILIRUBIN ADULT 0.5 MG/DL (0.2-1.0)
[2017-08-16 18:03] LABS: ALKALINE PHOSPHATASE 64 U/L (45-117); TOTAL PROTEIN 7.5 GM/DL (6.4-8.2)
[2017-08-16 18:04] LABS: TROPONIN I LESS THAN 0.02 NG/ML (0.02-0.05)
[2017-08-16 18:45] LABS: AUTOMATED NEUTROPHIL # 12.7 TH/MM3 (1.8-7.7); BASOPHIL # 0.1 TH/MM3 (0-0.2); BASOPHIL % 0.8 % (0.0-2.0); EOSINOPHIL % 0.2 % (0.0-4.0); HEMOGLOBIN 10.9 GM/DL (11.6-15.3); LYMPH % 7.5 % (9.0-44.0); LYMPHOCYTE # 1.2 TH/MM3 (1.0-4.8); MEAN CELL VOLUME 73.3 FL (80.0-100.0); MEAN CORPUSCULAR HEMOGLOBIN 22.9 PG (27.0-34.0); MEAN CORPUSCULAR HGB CONC 31.3 % (32.0-36.0); MEAN PLATELET VOLUME 8.5 FL (7.0-11.0); MONO % 11.2 % (0.0-8.0); MONOCYTE # 1.8 TH/MM3 (0-0.9); NEUT % 80.3 % (16.0-70.0); PLATELET COUNT 157 TH/MM3 (150-450); RED BLOOD COUNT 4.77 MIL/MM3 (4.00-5.30); RED CELL DISTRIBUTION WIDTH 15.2 % (11.6-17.2); WHITE BLOOD COUNT 15.8 TH/MM3 (4.0-11.0)
[2017-08-16] MEDS ORDERED: OSELTAMIVIR PHOSPHATE 75 MG CAP PO ONE (18:45)
[2017-08-16] MEDS ORDERED: IOHEXOL 350 MG/ML 10 ML VIAL (for RAD DIAG) IVCONTRAST ONE (19:56)
--- NOTE | 2017-08-16 20:15 | RADRPT ---
EXAM DATE/TIME: 08/16/2017 19:46 [facility] COMPARISON: No previous studies available for comparison. INDICATIONS : Short of breath. IV CONTRAST: 65 cc Omnipaque 350 (iohexol) IV RADIATION DOSE: 7.73 CTDIvol (mGy) MEDICAL HISTORY : Hypertension. Chronic obstructive pulmonary disease. Myocardial infarction.Congestive heart failure. Coronary artery disease. SURGICAL HISTORY : Pacemaker. ENCOUNTER: Initial ACUITY: 1 day PAIN SCALE: 0/10 LOCATION: chest TECHNIQUE: Volumetric scanning of the chest was performed using a pulmonary embolism protocol MIP images were re constructed. Using automated exposure control and adjustment of the mA and/or kV according to patien t size, radiation dose was kept as low as reasonably achievable to obtain optimal diagnostic quality images. DICOM format image data is available electronically for review and comparison. Follow-up recommendations for detected pulmonary nodules are based at a minimum on nodule size and pa tient risk factors according to Fleischner Society Guidelines. FINDINGS: There is mild emphysema. Peribronchial thickening is present with distal airway disease especially at the lung bases. The No filling defects to suggest pulmonary embolus. Moderate coronary calcifications. No pleural or bill cardial effusion. No acute findings in the upper abdomen. Compression deformity lower thoracic spine. CONCLUSION: 1. Negative for pulmonary embolus. 2. Extensive peribronchial thickening with distal airway disease especially at the lung bases. Findin g could represent atypical mycobacterial disease. 3. Moderate coronary calcifications. Kingsley Ash MD on August 16, 2017 at 20:10 Board Certified Radiologist. This report was verified electronically.
[2017-08-17] VITALS (21 sets, daily range): BP systolic 86–112; BP diastolic 48–59; PULSE 82–126; RESP 19–25; TEMP 98–98.1; O2SAT 94–97
--- NOTE | 2017-08-17 00:07 | HHI.HP ---
[facility] Service Critical Care Medicine Primary Care Physician Tahira Espinal Do, MD Admission Diagnosis sepsis, influenza-like illness, COPD exacerbation Diagnosis: Travel History International Travel<30 Days: No Contact w/Intl Traveler <30 Da: No Traveled to Known Affected Are: No History of Present Illness 77 year-old female with past medical history of COPD on 2 L home O2, chronic systolic heart failure with ejection fraction 20-25% and moderate to severe MR/moderate AR, status post resynchronization therapy with biventricular pacer/ICD, coronary artery disease with prior myocardial infarction that has been medically managed, hyperlipidemia, who presents to [facility] emergency department with SOB, cough, fever. She states that her symptoms began Monday08/15/17 with extreme fatigue. She also had sore throat, nonproductive cough. She was febrile to 102.6 rectal. She denies myalgias, headache, chest pain, nausea, vomiting. She was recently exposed to her friend who had URI symptoms. She states about 3 days ago that her feet were swollen and her weight was up 5 pounds so she doubled up on her lasix for the last 2 days and the swelling has improved. She was noted to be wheezing and only able to speak short sentences upon arrival to the ED. She received DuoNeb x3, Solu- Medrol 125 mg IV, Rocephin 1 g IV, azithromycin 500 mg IV, Tylenol 650 mg by mouth, Tamiflu 75 mg by mouth. She was tachycardic in the 110s to 130s and therefore CT pulmonary angiogram was performed which was negative for pulmonary embolism but demonstrated mild emphysema and bilateral distal airway peribronchial thickening. She received 2 L normal saline bolus in the ED. Heart rate is now in the 90s to 100. She is normotensive with lactic acid 1.4. BNP is 32. Troponin negative. Sodium is 132. She now appears comfortable and is speaking complete sentences. She states she feels much improved since arrival. Review of Systems Constitutional: COMPLAINS OF: Fever Endocrine: DENIES: Heat/cold intolerance Eyes: DENIES: Diplopia Ears, nose, mouth, throat: COMPLAINS OF: Hearing loss Respiratory: COMPLAINS OF: Shortness of breath, DENIES: Sputum production Cardiovascular: COMPLAINS OF: Lower Extremity Edema, DENIES: Chest pain, Syncope Gastrointestinal: DENIES: Abdominal pain, Diarrhea, Nausea, Vomiting Musculoskeletal: DENIES: Muscle aches Hematologic/lymphatic: DENIES: Lymphadenopathy Immunologic/allergic: DENIES: Urticaria Neurologic: DENIES: Headache Past Family Social History Allergies: Coded Allergies: tetanus toxoid, adsorbed (Unverified Allergy, Intermediate, RASH, 08/16/17) bupropion (Verified Allergy, Unknown, 08/16/17) shellfish derived (Verified Allergy, Unknown, 08/16/17) Uncoded Allergies: MUSCLE RELAXERS (Allergy, Intermediate, RASH, 11/19/14) . Past Medical History Coronary artery disease with prior myocardial infarction without prior PCI or CABG Chronic systolic heart failure with echo 07/03/15 demonstrating ejection fraction 20-25%, moderate AR, moderate/severe MR Hyperlipidemia COPD on 2 L home on 2 - followed by Dr. Kevan Rivera pulmonology GERD Hard of hearing Hypothyroidism Osteoarthritis ?Hypothyroidism - states she has seen entry level finance, has not been on meds. Past Surgical History Bilateral tubal ligation Cholecystectomy Appendectomy Biventricular pacer/ICD 04/18/17 (Dr. So Reyes) Vein stripping bilateral legs Bilateral cataract surgery Eye surgery during childhood Bladder suspension Tonsillectomy Reported Medications Albuterol neb every 6 hours Metoprolol 12.5 mg by mouth twice a day Lisinopril 5 mill grams by mouth daily Aspirin 81 mg by mouth daily Potassium chloride ER 10 mEq by mouth daily Lasix 20 mg by mouth daily Advair 115/21 g 2 puffs inhaled twice a day Ranitidine 150 mg by mouth twice a day Family History Father had artery disease with first myocardial partition in his 60s. He of an [place] in his 70s. He had diabetes mellitus Mother had no known significant medical problems and at age 90 Social History She lives alone. She is She has smoked a pack of cigarettes per day for 59 years. She started smoking when she was 18. She has more recently been smoking a half a pack of cigarettes per day. Hasn't smoked in the last 2 days. She denies use of alcohol or illicit drugs She has a son who lives in [place]. The rest of her children live in [place] Physical Exam Vital Signs Vital Signs Date Time Temp Pulse Resp B/P (MAP) Pulse Ox O2 Delivery O2 Flow Rate FiO2 08/16/17 23:45 95 Nasal Cannula 3.00 08/16/17 23:41 100 08/16/17 23:36 97.7 100 22 87/ 95 08/16/17 22:55 110 20 114/67 (83) 96 Nasal Cannula 3.00 08/16/17 22:05 114 20 109/51 (70) 95 Nasal Cannula 3.00 08/16/17 20:40 112 20 102/52 (69) 94 Nasal Cannula 3.00 08/16/17 19:12 98.1 124 20 109/46 (67) 96 Nasal Cannula 3.00 08/16/17 18:09 136 30 104/52 (69) 92 Room Air 3.00 08/16/17 17:40 102.4 122 20 102/52 (69) 96 Nasal Cannula 2.00 08/16/17 17:20 95 Nasal Cannula 2.00 08/16/17 17:13 97 Nasal Cannula 2.00 08/16/17 17:02 98.1 109 20 103/44 (63) 98 Nasal Cannula 2.00 08/16/17 16:58 20 08/16/17 16:53 97.8 120 22 117/54 (75) 89 Physical Exam Temp 97.7 blood pressure 101/57 mean arterial pressure 75, paced rhythm with rate of 103 sats 100% on 3 L nasal cannula. GENERAL: Very pleasant elderly female who is sitting up in [facility] bed, breathing comfortably and speaking complete sentences. SKIN: Warm and dry, well-perfused without rash. HEAD: Atraumatic. Normocephalic. EYES: Pupils 2 mm and reactive bilaterally. No scleral icterus. No injection or drainage. ENT: No nasal bleeding or discharge. Mucous membranes moist. Mild bilateral pharyngeal erythema. s/p tonsillectomy. No cervical lymphadenopathy. NECK: Trachea midline. No JVD. CARDIOVASCULAR: Tachycardic, rate 100-104 on monitor, 2/6 systolic murmur apex, no gallop. RESPIRATORY: Mildly tachypneic but overall breathing comfortably without accessory muscle use. Diminished bibasilar, bilateral wheeze with prolonged expiratory phase. No Rales. GASTROINTESTINAL: Abdomen soft, non-tender, nondistended. Bowel sounds present. MUSCULOSKELETAL: Extremities without clubbing, cyanosis. No significant edema. NEUROLOGICAL: Awake and alert. No obvious cranial nerve deficits. Motor grossly within normal limits. Normal speech. Hard of hearing Laboratory Laboratory Tests Test 08/16/17 17:20 08/16/17 17:35 08/16/17 21:00 Urine Color YELLOW Urine Turbidity CLEAR Urine pH 5.5 Urine Specific [place] 1.015 Urine Protein NEG Urine Glucose (UA) NEG Urine Ketones NEG Urine Occult Blood SMALL Urine Nitrite NEG Urine Bilirubin NEG Urine Leukocyte Esterase NEG Urine RBC 0-3 Urine WBC 0-2 Urine Squamous Epithelial Cells 0-5 Urine Hyaline Casts 20-24 Urine Mucus FEW Microscopic Urinalysis Comment CATH-CULT NOT IND White Blood Count 15.8 Red Blood Count 4.77 Hemoglobin 10.9 Hematocrit 35.0 Mean Corpuscular Volume 73.3 Mean Corpuscular Hemoglobin 22.9 Mean Corpuscular Hemoglobin Concent 31.3 Red Cell Distribution Width 15.2 Platelet Count 157 Mean Platelet Volume 8.5 Neutrophils (%) (Auto) 80.3 Lymphocytes (%) (Auto) 7.5 Monocytes (%) (Auto) 11.2 Eosinophils (%) (Auto) 0.2 Basophils (%) (Auto) 0.8 Neutrophils # (Auto) 12.7 Lymphocytes # (Auto) 1.2 Monocytes # (Auto) 1.8 Eosinophils # (Auto) 0.0 Basophils # (Auto) 0.1 CBC Comment AUTO DIFF Differential Comment AUTO DIFF CONFIRMED Prothrombin Time 10.8 Prothromb Time International Ratio 1.1 Activated Partial Thromboplast Time 23.3 Blood Urea Nitrogen 35 Creatinine 0.97 Random Glucose 102 Total Protein 7.5 Albumin 2.8 Calcium Level 8.3 Alkaline Phosphatase 64 Aspartate Amino Transf (AST/SGOT) 34 Alanine Aminotransferase (ALT/SGPT) 20 Total Bilirubin 0.5 Sodium Level 132 Potassium Level 5.0 Chloride Level 97 Carbon Dioxide Level 27.3 Anion Gap 8 Estimat Glomerular Filtration Rate 56 Lactic Acid Level 1.4 Total Creatine Kinase 213 Creatine Kinase MB 1.7 Creatine Kinase MB % 0.8 Troponin I LESS THAN 0.02 B-Type Natriuretic Peptide 32 Date/Time Source Procedure Growth Status 08/16/17 17:45 Blood Peripheral Aerobic Blood Culture Pending Received 08/16/17 17:45 Blood Peripheral Anaerobic Blood Culture Pending Received 08/16/17 17:10 Nasal Washing Influenza Types A,B Antigen (JOSEFINA) - Final NEGATIVE FOR FLU A AND B ANTIGEN.... Complete Result Diagram: 08/16/17 1735 08/16/17 1735 Septic Shock Reassessment Septic shock perfusion: reassessment completed Caprini VTE Risk Assessment Caprini VTE Risk Assessment: Mod/High Risk (score >= 2) Caprini Risk Assessment Model Point Value = 1 Point Value = 2 Point Value = 3 Point Value = 5 Age 41-60 Minor surgery BMI > 25 kg/m2 Swollen legs Varicose veins or History of unexplained or recurrent spontaneous Oral contraceptives or hormone replacement Sepsis (< 1 month) Serious lung disease, including pneumonia (< 1 month) Abnormal pulmonary function Acute myocardial infarction Congestive heart failure (< 1 month) History of inflammatory bowel disease Medical patient at bed rest Age 61-74 Arthroscopic surgery Major open surgery (> 45 min) Laparoscopic surgery (> 45 min) Malignancy Confined to bed (> 72 hours) Immobilizing plaster cast Central venous access Age >= 75 History of VTE Family history of VTE Factor V Leiden Prothrombin [id number] Lupus anticoagulant Anticardiolipin antibodies Elevated serum homocysteine Heparin-induced thrombocytopenia Other congenital or acquired thrombophilia Stroke (< 1 month) Elective arthroplasty Hip, pelvis, or leg fracture Acute spinal cord injury (< 1 month) Prophylaxis Regimen Total Risk Factor Score Risk Level Prophylaxis Regimen 0-1 Low Early ambulation 2 Moderate Order ONE of the following: *Sequential Compression Device (SCD) *Heparin 5000 units SQ BID 3-4 Higher Order ONE of the following medications: *Heparin 5000 units SQ TID *Enoxaparin/Lovenox 40 mg SQ daily (WT < 150 kg, CrCl > 30 mL/min) *Enoxaparin/Lovenox 30 mg SQ daily (WT < 150 kg, CrCl > 10-29 mL/min) *Enoxaparin/Lovenox 30 mg SQ BID (WT < 150 kg, CrCl > 30 mL/min) AND/OR *Sequential Compression Device (SCD) 5 or more Highest Order ONE of the following medications: *Heparin 5000 units SQ TID (Preferred with Epidurals) *Enoxaparin/Lovenox 40 mg SQ daily (WT < 150 kg, CrCl > 30 mL/min) *Enoxaparin/Lovenox 30 mg SQ daily (WT < 150 kg, CrCl > 10-29 mL/min) *Enoxaparin/Lovenox 30 mg SQ BID (WT < 150 kg, CrCl > 30 mL/min) AND *Sequential Compression Device (SCD) Assessment and Plan Assessment and Plan NEURO: Tylenol as needed for pain or fever RESP: Community acquired pneumonia (atypical/viral) as per below Acute COPD exacerbation Mild emphysema Tobacco abuse DuoNeb every 4 hours. Albuterol every 2 hours as needed. Received Solu-Medrol 125 mg IV on 08/16/17. Will hold on further steroids at this time as it may exacerbate fluid retention, but if she has persistent wheezing will start prednisone. Hold Advair. Discussed tobacco cessation. Nicotine patch. CT pulmonary angiogram - negative for possible, mild emphysema, bilateral distal airway peribronchial thickening CV: Coronary artery disease Chronic systolic heart failure Moderate mitral regurgitation Moderate aortic regurgitation Biventricular pacer/ ICD in place ?Hyperlipidemia Chronic systolic heart failure currently appears compensated. BNP is low. She did receive 2 L normal saline in the emergency department so will monitor respiratory exam closely. Continue metoprolol 12.5 mg by mouth twice a day with hold orders. Today will hold lisinopril 5 millgrams daily considering potassium of 5 and recent IV contrast. Likely can be resumed tomorrow Continue aspirin 81 mg by mouth daily Echo 07/03/15 - ejection fraction 20-25%, dilated LV, moderate aortic regurgitation, moderate to severe mitral regurgitation, Reportedly not on any lipid lowering agent at home. Ordered Daily weights, monitor intake and output. Initial troponin negative. EKG paced. Trend troponin. GI: GERD Heart healthy diet. 2 g sodium restriction On H2 dodie at home, use famotidine FEN/RENAL: Elevated CPK Voiding. Monitor creatinine. Monitor urine output. Potassium is 5.0. Hold potassium supplementation Received IV contrast 08/16/17 CPK mildly elevated which may be secondary to viral illness Lasix 20 mg by mouth daily ID: Community acquired pneumonia, atypical/viral CT with peribronchial cuffing which can be seen with atypical pneumonia. 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 Denies h/o HIV or immunosuppression. Received Rocephin, azithromycin, and Tamiflu in the ED. Follow-up blood culture. Send respiratory panel, urine Legionella and pneumococcal antigen, sputum culture bacterial/AFB. We'll cover for community-acquired organisms including atypical with Rocephin 1 g IV every 12, azithromycin 500 mg by mouth daily. Initial Influenza antigen nasal washing is negative but given the severity of current influenza season and high risk patient (hospitalized, COPD, age >65, CHF ) will continue Tamiflu 75 mg po bid because potential benefit outweighs risk. HEME: Chronic anemia Asymptomatic, monitor CBC ENDO: ? Hypothyroidism Patient states she has been followed by endocrinology but has not been on thyroid medication. Check TSH, free T3/T4. PROPH: SCD/Lovenox 40 mg subcutaneous daily for DVT prophylaxis. Famotidine for stress ulcer prophylaxis. ACCESS: Peripheral IV providing adequate access at this time. Patient states that she is agreeable to intubation if needed for respiratory failure. She desires full code. Level III H&P Dior Shah MD Aug 17, 2017 00:07
[2017-08-17] MEDS ORDERED: RESP: ALBUTEROL 2.5 MG/3 ML NEB (PRN) NEB (00:15)
[2017-08-17] MEDS ORDERED: RESP: ALBUTEROL 2.5 MG/IPRATROPIUM 0.5 MG NEB (SCH) NEB (00:15)
--- NOTE | 2017-08-17 00:33 | EKG ---
Date Performed: 08/16/2017 Time Performed: 17:23:39 PTAGE: 77 years EKG: ELECTRONIC VENTRICULAR PACEMAKER ABNORMAL RHYTHM ECG PREVIOUS TRACING : 08/01/2017 13.29 Since the prior tracing, there has been no significant dong DOCTOR: Yeison Ramsey Interpretating Date/Time 08/17/2017 00:32:50
[2017-08-17] MEDS ORDERED: SENNOSIDES 8.6 MG TAB PO PRN (01:00)
[2017-08-17] MEDS ORDERED: SODIUM CHLORIDE 0.9% FLUSH 10 ML FLUSH IV FLUSH PRN (01:00)
[2017-08-17] MEDS ORDERED: ACETAMINOPHEN 325 MG TAB PO PRN (01:00)
[2017-08-17] MEDS ORDERED: CHLORHEXIDINE GLUCONATE 2 % 1 PACK (2 CLOTHS) TOP PRN (01:00)
[2017-08-17] MEDS ORDERED: MISCELLANEOUS NURSING INFORMATION XX SCH (01:00)
[2017-08-17] MEDS ORDERED: LACTULOSE SYRUP 20 GM/30 ML CUP PO PRN (01:00)
[2017-08-17] MEDS ORDERED: BISACODYL 10 MG SUPP RECTAL PRN (01:00)
[2017-08-17] MEDS ORDERED: MAGNESIUM HYDROXIDE SUSP 30 ML CUP PO PRN (01:00)
[2017-08-17] MEDS ORDERED: ONDANSETRON HCL 4 MG/2 ML VIAL IV PUSH PRN (01:00)
[2017-08-17] MEDS: CHLORHEXIDINE GLUCONATE 2 % 1 PACK (2 CLOTHS) TOP SCH (01:13)
[2017-08-17] MEDS ORDERED: PILL SPLITTER OTHER PRN ×2 (01:45→13:30)
[2017-08-17] MEDS: RESP: ALBUTEROL 2.5 MG/IPRATROPIUM 0.5 MG NEB (SCH) NEB ×6 (04:32→23:18)
[2017-08-17] MEDS: cefTRIAXone INJ 1,000 MG in SODIUM CHLORIDE 0.9% INJ 100 ML IV SCH ×2 (05:08→18:37)
[2017-08-17] MEDS: ENOXAPARIN SODIUM 40 MG/0.4 ML SYRINGE SQ SCH (05:13)
[2017-08-17 05:48] LABS: BICARBONATE 26.8 MEQ/L (21.0-32.0); CALCIUM 7.1 MG/DL (8.5-10.1); CREATININE 0.91 MG/DL (0.50-1.00); MAGNESIUM 2.5 MG/DL (1.5-2.5)
[2017-08-17 06:03] LABS: CALCIUM-PROTEIN CORRECTED 7.7 MG/DL (8.5-10.1)
[2017-08-17] MEDS: ASPIRIN 81 MG CHEW TAB CHEW SCH (09:00)
[2017-08-17] MEDS: NICOTINE 21 MG/24 HR PATCH T-DERMAL SCH (09:00)
[2017-08-17] MEDS: METOPROLOL TARTRATE 25 MG TAB PO SCH ×2 (09:00→20:18)
[2017-08-17] MEDS: OSELTAMIVIR PHOSPHATE 75 MG CAP PO SCH ×2 (09:00→20:18)
[2017-08-17] MEDS ORDERED: FAMOTIDINE 20 MG TAB PO SCH (09:00)
[2017-08-17] MEDS: DOCUSATE SODIUM 50 MG/SENNA 8.6 MG TAB PO SCH ×2 (09:00→20:18)
[2017-08-17] MEDS: FUROSEMIDE 20 MG TAB PO SCH (09:00)
[2017-08-17 17:26] LABS: THYROXINE (T4) 8.8 MCG/DL (4.8-13.9)
[2017-08-17 17:35] LABS: FREE T3 3.04 PG/ML (2.18-3.98); TROPONIN I LESS THAN 0.02 NG/ML (0.02-0.05)
[2017-08-17] MEDS: SODIUM CHLORIDE 0.9% FLUSH 10 ML FLUSH IV FLUSH SCH ×2 (18:38→20:18)
[2017-08-17] MEDS: AZITHROMYCIN 250 MG TAB PO SCH (18:38)
[2017-08-17] MEDS ORDERED: AZITHROMYCIN INJ 500 MG in SODIUM CHLOR 0.9% 250 ML INJ 250 ML IV SCH (19:00)
[2017-08-17] MEDS: FAMOTIDINE 20 MG TAB PO SCH (20:18)
[2017-08-17] MEDS: REMOVE OLD PATCH T-DERMAL SCH (20:24)
--- NOTE | 2017-08-17 23:22 | EKG ---
Date Performed: 08/17/2017 Time Performed: 07:34:44 PTAGE: 77 years EKG: Sinus rhythm ST/T wave changes Compared to prior tracing, no significant change DOCTOR: Yeison Ramsey Interpretating Date/Time 08/17/2017 23:21:09
[2017-08-18] VITALS (19 sets, daily range): BP systolic 101–128; BP diastolic 50–67; PULSE 72–99; RESP 21–30; TEMP 98.1–98.9; O2SAT 95–99
[2017-08-18] MEDS: ENOXAPARIN SODIUM 40 MG/0.4 ML SYRINGE SQ SCH (01:31)
[2017-08-18] MEDS: RESP: ALBUTEROL 2.5 MG/IPRATROPIUM 0.5 MG NEB (SCH) NEB ×6 (03:15→23:39)
[2017-08-18] MEDS: CHLORHEXIDINE GLUCONATE 2 % 1 PACK (2 CLOTHS) TOP SCH (03:16)
[2017-08-18 04:05] LABS: AUTOMATED NEUTROPHIL # 6.2 TH/MM3 (1.8-7.7); BASOPHIL % 0.2 % (0.0-2.0); EOSINOPHIL % 0.2 % (0.0-4.0); HEMOGLOBIN 8.6 GM/DL (11.6-15.3); LYMPH % 18.2 % (9.0-44.0); LYMPHOCYTE # 1.5 TH/MM3 (1.0-4.8); MEAN CELL VOLUME 73.6 FL (80.0-100.0); MEAN CORPUSCULAR HEMOGLOBIN 23.3 PG (27.0-34.0); MEAN CORPUSCULAR HGB CONC 31.7 % (32.0-36.0); MEAN PLATELET VOLUME 7.6 FL (7.0-11.0); MONO % 8.5 % (0.0-8.0); MONOCYTE # 0.7 TH/MM3 (0-0.9); NEUT % 72.9 % (16.0-70.0); PLATELET COUNT 137 TH/MM3 (150-450); RED BLOOD COUNT 3.67 MIL/MM3 (4.00-5.30); RED CELL DISTRIBUTION WIDTH 15.8 % (11.6-17.2); WHITE BLOOD COUNT 8.4 TH/MM3 (4.0-11.0)
[2017-08-18 04:29] LABS: ALBUMIN 2.3 GM/DL (3.4-5.0); CALCIUM 7.4 MG/DL (8.5-10.1); CALCIUM-PROTEIN CORRECTED 8.1 MG/DL (8.5-10.1); CREATININE 0.74 MG/DL (0.50-1.00); MAGNESIUM 2.3 MG/DL (1.5-2.5); PHOSPHORUS 2.6 MG/DL (2.5-4.9); TOTAL BILIRUBIN ADULT 0.1 MG/DL (0.2-1.0); TOTAL PROTEIN 5.9 GM/DL (6.4-8.2)
--- NOTE | 2017-08-18 05:08 | RADRPT ---
EXAM DATE/TIME: 08/18/2017 03:35 [place] COMPARISON: CHEST SINGLE AP, March 10, 2017, 15:47. CT PULMONARY ANGIOGRAM, August 16, 2017, 19:46. CHEST SIN GLE AP, August 16, 2017, 17:24. INDICATIONS : Evaluate for pneumonia. MEDICAL HISTORY : None. SURGICAL HISTORY : Pacemaker. ENCOUNTER: Subsequent ACUITY: 3 days PAIN SCORE: Non-responsive. LOCATION: chest FINDINGS: There is a multilead pacing device seen from the left subclavian approach. The heart size is normal. There some linear increased density at the right base just above the right hemidiaphragm. The left rui ng is grossly clear. No effusion is seen. 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 CONCLUSION: Mild right base atelectasis or consolidation. Mason Trejo MD on August 18, 2017 at 5:04 Board Certified Radiologist. This report was verified electronically.
[2017-08-18] MEDS: cefTRIAXone INJ 1,000 MG in SODIUM CHLORIDE 0.9% INJ 100 ML IV SCH ×2 (06:25→18:00)
[2017-08-18] MEDS: NICOTINE 21 MG/24 HR PATCH T-DERMAL SCH (09:00)
[2017-08-18] MEDS: ASPIRIN 81 MG CHEW TAB CHEW SCH (09:00)
[2017-08-18] MEDS: SODIUM CHLORIDE 0.9% FLUSH 10 ML FLUSH IV FLUSH SCH ×2 (09:00→19:40)
[2017-08-18] MEDS: OSELTAMIVIR PHOSPHATE 75 MG CAP PO SCH ×2 (09:01→19:39)
[2017-08-18] MEDS: FUROSEMIDE 20 MG TAB PO SCH (09:01)
[2017-08-18] MEDS: METOPROLOL TARTRATE 25 MG TAB PO SCH ×2 (09:01→19:40)
[2017-08-18] MEDS: DOCUSATE SODIUM 50 MG/SENNA 8.6 MG TAB PO SCH ×2 (09:01→19:40)
[2017-08-18] MEDS: FAMOTIDINE 20 MG TAB PO SCH ×2 (09:01→19:40)
--- NOTE | 2017-08-18 15:26 | PD.PN.STU ---
Subjective Remarks 77 year-old female with past medical history of COPD on 2 L home O2, chronic systolic heart failure with ejection fraction 20-25% and moderate to severe MR/moderate AR, status post resynchronization therapy with biventricular pacer/ICD, coronary artery disease with prior myocardial infarction that has been medically managed, hyperlipidemia, who presents to [facility] emergency department with SOB, cough, fever. She states that her symptoms began Monday08/15/17 with extreme fatigue. She also had sore throat, nonproductive cough. She was febrile to 102.6 rectal. She denies myalgias, headache, chest pain, nausea, vomiting. She was recently exposed to her friend who had URI symptoms. She states about 3 days ago that her feet were swollen and her weight was up 5 pounds so she doubled up on her lasix for the last 2 days and the swelling has improved. She was noted to be wheezing and only able to speak short sentences upon arrival to the ED. She received DuoNeb x3, Solu- Medrol 125 mg IV, Rocephin 1 g IV, azithromycin 500 mg IV, Tylenol 650 mg by mouth, Tamiflu 75 mg by mouth. She was tachycardic in the 110s to 130s and therefore CT pulmonary angiogram was performed which was negative for pulmonary embolism but demonstrated mild emphysema and bilateral distal airway peribronchial thickening. She received 2 L normal saline bolus in the ED. Heart rate is now in the 90s to 100. She is normotensive with lactic acid 1.4. BNP is 32. Troponin negative. Sodium is 132. She now appears comfortable and is speaking complete sentences. She states she feels much improved since arrival. 08/17/17: Pt is clinically stable and subjectively feeling better. She is denies any trouble breathing and is tolerating food and drink well. Objective Vitals Vital Signs Date Time Temp Pulse Resp B/P (MAP) Pulse Ox O2 Delivery O2 Flow Rate FiO2 08/18/17 15:00 82 28 101/55 (70) 95 08/18/17 14:00 79 26 103/67 (79) 95 08/18/17 13:00 72 25 116/56 (76) 96 08/18/17 12:00 98.9 72 25 104/50 (68) 95 08/18/17 10:00 85 08/18/17 10:00 85 21 111/56 (74) 96 08/18/17 09:18 99 Nasal Cannula 2.00 08/18/17 09:01 97 30 128/60 (82) 98 08/18/17 09:01 97 08/18/17 09:00 93 08/18/17 09:00 93 27 98 08/18/17 08:00 79 08/18/17 08:00 98.3 79 21 117/58 (77) 98 08/18/17 08:00 Room Air 08/18/17 06:00 99 08/18/17 04:00 98.7 88 24 117/56 (76) 97 08/18/17 04:00 88 08/18/17 02:00 81 08/18/17 00:00 84 08/18/17 00:00 98.6 84 24 122/58 (79) 97 08/17/17 22:00 82 08/17/17 20:00 98 Nasal Cannula 2.00 08/17/17 20:00 90 08/17/17 20:00 98.1 90 22 106/53 (70) 96 08/17/17 19:59 97 Nasal Cannula 2.00 08/17/17 18:00 102 21 112/55 (74) 96 08/17/17 18:00 119 08/17/17 17:00 92 22 111/54 (73) 96 08/17/17 16:00 98.0 103 23 108/53 (71) 96 08/17/17 16:00 119 I/O 08/17/17 08/17/17 08/17/17 08/18/17 08/18/17 08/18/17 07:00 15:00 23:00 07:00 15:00 23:00 Intake Total 160 ml 820 ml 580 ml Output Total 600 ml 1000 ml Balance -440 ml 820 ml -420 ml Intake Oral 60 ml 720 ml 480 ml IV Total 100 ml 100 ml 100 ml Output Urine Total 600 ml 1000 ml # Voids 1 2 1 # Bowel Movements 2 1 0 Result Diagram: 08/18/17 0334 08/18/174 Other Results Laboratory Tests Test 08/18/17 03:34 White Blood Count 8.4 Red Blood Count 3.67 Hemoglobin 8.6 Hematocrit 27.0 Mean Corpuscular Volume 73.6 Mean Corpuscular Hemoglobin 23.3 Mean Corpuscular Hemoglobin Concent 31.7 Red Cell Distribution Width 15.8 Platelet Count 137 Mean Platelet Volume 7.6 Neutrophils (%) (Auto) 72.9 Lymphocytes (%) (Auto) 18.2 Monocytes (%) (Auto) 8.5 Eosinophils (%) (Auto) 0.2 Basophils (%) (Auto) 0.2 Neutrophils # (Auto) 6.2 Lymphocytes # (Auto) 1.5 Monocytes # (Auto) 0.7 Eosinophils # (Auto) 0.0 Basophils # (Auto) 0.0 CBC Comment DIFF FINAL Differential Comment Blood Urea Nitrogen 21 Creatinine 0.74 Random Glucose 118 Total Protein 5.9 Albumin 2.3 Calcium Level 7.4 Phosphorus Level 2.6 Magnesium Level 2.3 Alkaline Phosphatase 50 Aspartate Amino Transf (AST/SGOT) 14 Alanine Aminotransferase (ALT/SGPT) 14 Total Bilirubin 0.1 Sodium Level 141 Potassium Level 4.3 Chloride Level 105 Carbon Dioxide Level 32.0 Anion Gap 4 Estimat Glomerular Filtration Rate 76 Protein Corrected Calcium 8.1 B-Type Natriuretic Peptide 166 Date/Time Source Procedure Growth Status 08/16/17 17:45 Blood Peripheral Aerobic Blood Culture - Preliminary NO GROWTH IN 2 DAYS Resulted 08/16/17 17:45 Blood Peripheral Anaerobic Blood Culture - Preliminary NO GROWTH IN 2 DAYS Resulted 08/17/17 22:24 Sputum Expectorated Sputum Acid Fast Stain - Final NO ACID FAST BACILLI SEEN Resulted 08/17/17 22:24 Sputum Expectorated Sputum Mycobacterial Culture Pending Resulted 08/16/17 17:20 Urine Other Legionella Antigen - Final PRESUMPTIVE NEGATIVE FOR LEGIONELLA P... Complete 08/16/17 17:20 Urine Other Streptococcus pneumoniae Antigen (M - Final PRESUMPTIVE NEGATIVE FOR STREPTOCOCCU... Complete Imaging Last Impressions Chest X-Ray 08/18/17 0000 Signed Impressions: Service Date/Time: Friday, August 18, 2017 03:35 - CONCLUSION: Mild right base atelectasis or consolidation. Mason Trejo MD CT Angiography 08/16/17 1841 Signed Impressions: Service Date/Time: Wednesday, August 16, 2017 19:46 - CONCLUSION: 1. Negative for pulmonary embolus. 2. Extensive peribronchial thickening with distal airway disease especially at the lung bases. Finding could represent atypical mycobacterial disease. 3. Moderate coronary calcifications. Kingsley Ash MD Objective Remarks GENERAL: A frail and pale elderly women in no acute respiratory distress. SKIN: Warm and dry. HEAD: Atraumatic. Normocephalic. EYES: Pupils equal and round. No scleral icterus. No injection or drainage. NECK: Trachea midline. No JVD. CARDIOVASCULAR: Regular rate and rhythm. HR is 75 bedside RESPIRATORY: No accessory muscle use. Crackles at the base B/L. Breath sounds decreased equal bilaterally. GASTROINTESTINAL: Abdomen soft, non-tender, nondistended. Hepatic and splenic margins not palpable. MUSCULOSKELETAL: Extremities without clubbing, cyanosis, or edema. No obvious deformities. NEUROLOGICAL: Awake and alert. No obvious cranial nerve deficits. Motor grossly within normal limits. Five out of 5 muscle strength in the arms and legs. Normal speech. PSYCHIATRIC: Appropriate mood and affect; insight and judgment normal. A/P Assessment and Plan NEURO: Tylenol as needed for pain or fever RESP: Influenza pneumonia Acute COPD exacerbation Mild emphysema Tobacco abuse DuoNeb every 4 hours. Albuterol every 2 hours as needed. Received Solu-Medrol 125 mg IV on 08/16/17. Will hold on further steroids at this time as it may exacerbate fluid retention, but if she has persistent wheezing will start prednisone. Hold Advair. Discussed tobacco cessation. Nicotine patch. CT pulmonary angiogram - negative for pe, mild emphysema, bilateral distal airway peribronchial thickening CV: Coronary artery disease Chronic systolic heart failure Moderate mitral regurgitation Moderate aortic regurgitation Biventricular pacer/ ICD in place ?Hyperlipidemia Chronic systolic heart failure currently appears compensated. BNP is low. Continue metoprolol 12.5 mg by mouth twice a day with hold orders. Today will hold lisinopril 5 millgrams daily. borderline hypotensive. Continue aspirin 81 mg by mouth daily Echo 07/03/15 - ejection fraction 20-25%, dilated LV, moderate aortic regurgitation, moderate to severe mitral regurgitation, Reportedly not on any lipid lowering agent at home. Ordered Daily weights, monitor intake and output. trops negative. EKG paced. GI: GERD Heart healthy diet. 2 g sodium restriction On H2 dodie at home, use famotidine FEN/RENAL: Elevated CPK Voiding. Monitor creatinine. Monitor urine output. Received IV contrast 08/16/17 CPK mildly elevated which may be secondary to viral illness Lasix 20 mg by mouth daily ID: Community acquired pneumonia, atypical/viral CT with peribronchial cuffing which can be seen with atypical pneumonia. 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 Denies h/o HIV or immunosuppression. Received Rocephin, azithromycin, and Tamiflu in the ED. flu antigen + Follow-up blood culture. cover broadly for an additional 24h until full 48h negative cultures, then de- escalate to Tamiflu monotherapy. HEME: Chronic anemia Asymptomatic, monitor CBC ENDO: ? Hypothyroidism Patient states she has been followed by endocrinology but has not been on thyroid medication. PROPH: SCD/Lovenox 40 mg subcutaneous daily for DVT prophylaxis. Famotidine for stress ulcer prophylaxis. Jarrett Lowery M3 Aug 18, 2017 15:26
[2017-08-18] MEDS: AZITHROMYCIN 250 MG TAB PO SCH (18:42)
--- NOTE | 2017-08-18 19:02 | HHI.CCPN ---
Subjective Remarks/Hospital Course Hospital Course: 77 year-old female with past medical history of COPD on 2 L home O2, chronic systolic heart failure with ejection fraction 20-25% and moderate to severe MR/moderate AR, status post resynchronization therapy with biventricular pacer/ICD, coronary artery disease with prior myocardial infarction that has been medically managed, hyperlipidemia, who [facility] emergency department with SOB, cough, fever. She states that her symptoms began Monday08/15/17 with extreme fatigue. She also had sore throat, nonproductive cough. She was febrile to 102.6 rectal. She denies myalgias, headache, chest pain, nausea, vomiting. She was recently exposed to her friend who had URI symptoms. She states about 3 days ago that her feet were swollen and her weight was up 5 pounds so she doubled up on her lasix for the last 2 days and the swelling has improved. She was noted to be wheezing and only able to speak short sentences upon arrival to the ED. She received DuoNeb x3, Solu- Medrol 125 mg IV, Rocephin 1 g IV, azithromycin 500 mg IV, Tylenol 650 mg by mouth, Tamiflu 75 mg by mouth. She was tachycardic in the 110s to 130s and therefore CT pulmonary angiogram was performed which was negative for pulmonary embolism but demonstrated mild emphysema and bilateral distal airway peribronchial thickening. She received 2 L normal saline bolus in the ED. Heart rate is now in the 90s to 100. She is normotensive with lactic acid 1.4. BNP is 32. Troponin negative. Sodium is 132. She now appears comfortable and is speaking complete sentences. She states she feels much improved since arrival. Subjective: 08/18: doing well. ambulating. denies sob. denies other complaints. Flu +. tolerating diet. ROS otherwise negative. Objective Vital Signs Date Time Temp Pulse Resp B/P (MAP) Pulse Ox O2 Delivery O2 Flow Rate FiO2 08/18/17 18:00 81 24 126/59 (81) 95 08/18/17 16:00 98.3 08/18/17 09:18 Nasal Cannula 2.00 Intake and Output 08/18/17 08/18/17 08/19/17 08:00 16:00 00:00 Intake Total 580 ml 1440 ml Output Total 1000 ml 1200 ml Balance -420 ml 240 ml Result Diagram: 08/18/17 0334 08/18/17 0334 Other Results Microbiology Date/Time Source Procedure Growth Status 08/16/17 17:10 Nasal Washing Influenza Types A,B Antigen (JOSEFINA) - Final NEGATIVE FOR FLU A AND B ANTIGEN.... Complete 08/16/17 17:20 Urine Other Legionella Antigen - Final PRESUMPTIVE NEGATIVE FOR LEGIONELLA P... Complete 08/16/17 17:20 Urine Other Streptococcus pneumoniae Antigen (M - Final PRESUMPTIVE NEGATIVE FOR STREPTOCOCCU... Complete Objective Remarks GENERAL: Very pleasant elderly female who is sitting up in [facility] bed, breathing comfortably and speaking complete sentences. SKIN: Warm and dry, well-perfused without rash. HEAD: Atraumatic. Normocephalic. EYES: Pupils 2 mm and reactive bilaterally. No scleral icterus. No injection or drainage. ENT: No nasal bleeding or discharge. Mucous membranes moist. NECK: Trachea midline. No JVD. CARDIOVASCULAR: normal rate, regular rhythm. sinus by tele. RESPIRATORY: unlabored. equal chest rise. 2L o2 by nc. GASTROINTESTINAL: Abdomen soft, non-tender, nondistended. MUSCULOSKELETAL: Extremities without clubbing, cyanosis. No significant edema. NEUROLOGICAL: Awake and alert. No obvious cranial nerve deficits. Motor grossly within normal limits. Normal speech. Hard of hearing A/P Assessment and Plan Assessment 77yF with COPD and CHF (systolic, EF 20%) who presents with acute hypoxemia and has influenza pneumonia. clinically improving. would agree with continuing another 24h of empiric broad spectrum abx and de-escalating to Tamiflu monotherapy if cultures negative at 48h. stable for transfer to floor. consult hospitalist. NEURO: Tylenol as needed for pain or fever RESP: Influenza pneumonia Acute COPD exacerbation Mild emphysema Tobacco abuse DuoNeb every 4 hours. Albuterol every 2 hours as needed. Received Solu-Medrol 125 mg IV on 08/16/17. Will hold on further steroids at this time as it may exacerbate fluid retention, but if she has persistent wheezing will start prednisone. Hold Advair. Discussed tobacco cessation. Nicotine patch. CT pulmonary angiogram - negative for pe, mild emphysema, bilateral distal airway peribronchial thickening CV: Coronary artery disease Chronic systolic heart failure Moderate mitral regurgitation Moderate aortic regurgitation Biventricular pacer/ ICD in place ?Hyperlipidemia Chronic systolic heart failure currently appears compensated. BNP is low. Continue metoprolol 12.5 mg by mouth twice a day with hold orders. Today will hold lisinopril 5 millgrams daily. borderline hypotensive. Continue aspirin 81 mg by mouth daily Echo 07/03/15 - ejection fraction 20-25%, dilated LV, moderate aortic regurgitation, moderate to severe mitral regurgitation, Reportedly not on any lipid lowering agent at home. Ordered Daily weights, monitor intake and output. trops negative. EKG paced. GI: GERD Heart healthy diet. 2 g sodium restriction On H2 dodie at home, use famotidine FEN/RENAL: Elevated CPK Voiding. Monitor creatinine. Monitor urine output. Received IV contrast 08/16/17 CPK mildly elevated which may be secondary to viral illness Lasix 20 mg by mouth daily ID: Community acquired pneumonia, atypical/viral CT with peribronchial cuffing which can be seen with atypical pneumonia. 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 Denies h/o HIV or immunosuppression. Received Rocephin, azithromycin, and Tamiflu in the ED. flu antigen + Follow-up blood culture. cover broadly for an additional 24h until full 48h negative cultures, then de- escalate to Tamiflu monotherapy. HEME: Chronic anemia Asymptomatic, monitor CBC ENDO: ? Hypothyroidism Patient states she has been followed by endocrinology but has not been on thyroid medication. PROPH: SCD/Lovenox 40 mg subcutaneous daily for DVT prophylaxis. Famotidine for stress ulcer prophylaxis. ACCESS: Peripheral IV providing adequate access at this time. Patient states that she is agreeable to intubation if needed for respiratory failure. She desires full code. dispo: transfer to floor. consult hospitalist. Freedom Fitzgerald MD Aug 18, 2017 19:02
[2017-08-18] MEDS: REMOVE OLD PATCH T-DERMAL SCH (21:00)
[2017-08-19] VITALS (14 sets, daily range): BP systolic 117–138; BP diastolic 56–63; PULSE 69–85; RESP 20–31; TEMP 97.8–98.6; O2SAT 91–100
[2017-08-19] MEDS: ENOXAPARIN SODIUM 40 MG/0.4 ML SYRINGE SQ SCH (00:20)
[2017-08-19] MEDS: RESP: ALBUTEROL 2.5 MG/IPRATROPIUM 0.5 MG NEB (SCH) NEB ×5 (03:43→21:13)
[2017-08-19] MEDS: CHLORHEXIDINE GLUCONATE 2 % 1 PACK (2 CLOTHS) TOP SCH (04:00)
[2017-08-19 04:47] LABS: HEMATOCRIT 30.2 % (35.0-46.0); HEMOGLOBIN 9.6 GM/DL (11.6-15.3); MEAN CELL VOLUME 72.7 FL (80.0-100.0); MEAN CORPUSCULAR HEMOGLOBIN 23.1 PG (27.0-34.0); MEAN CORPUSCULAR HGB CONC 31.8 % (32.0-36.0); MEAN PLATELET VOLUME 7.9 FL (7.0-11.0); PLATELET COUNT 165 TH/MM3 (150-450); RED BLOOD COUNT 4.15 MIL/MM3 (4.00-5.30); RED CELL DISTRIBUTION WIDTH 15.8 % (11.6-17.2)
[2017-08-19 05:44] LABS: BICARBONATE 33.6 MEQ/L (21.0-32.0); CALCIUM 8.5 MG/DL (8.5-10.1); CREATININE 0.61 MG/DL (0.50-1.00)
[2017-08-19] MEDS: cefTRIAXone INJ 1,000 MG in SODIUM CHLORIDE 0.9% INJ 100 ML IV SCH (06:07)
[2017-08-19] MEDS: NICOTINE 21 MG/24 HR PATCH T-DERMAL SCH (09:00)
[2017-08-19] MEDS: FAMOTIDINE 20 MG TAB PO SCH ×2 (11:24→21:07)
[2017-08-19] MEDS: DOCUSATE SODIUM 50 MG/SENNA 8.6 MG TAB PO SCH ×2 (11:24→21:07)
[2017-08-19] MEDS: OSELTAMIVIR PHOSPHATE 75 MG CAP PO SCH ×2 (11:24→21:07)
[2017-08-19] MEDS: METOPROLOL TARTRATE 25 MG TAB PO SCH ×2 (11:24→21:07)
[2017-08-19] MEDS: FUROSEMIDE 20 MG TAB PO SCH (11:25)
[2017-08-19] MEDS: SODIUM CHLORIDE 0.9% FLUSH 10 ML FLUSH IV FLUSH SCH ×2 (11:25→21:07)
[2017-08-19] MEDS: ASPIRIN 81 MG CHEW TAB CHEW SCH (11:25)
--- NOTE | 2017-08-19 18:01 | HHI.CCPN ---
Subjective Remarks/Hospital Course Hospital Course: 77 year-old female with past medical history of COPD on 2 L home O2, chronic systolic heart failure with ejection fraction 20-25% and moderate to severe MR/moderate AR, status post resynchronization therapy with biventricular pacer/ICD, coronary artery disease with prior myocardial infarction that has been medically managed, hyperlipidemia, who presents to [facility] emergency department with SOB, cough, fever. She states that her symptoms began Monday08/15/17 with extreme fatigue. She also had sore throat, nonproductive cough. She was febrile to 102.6 rectal. She denies myalgias, headache, chest pain, nausea, vomiting. She was recently exposed to her friend who had URI symptoms. She states about 3 days ago that her feet were swollen and her weight was up 5 pounds so she doubled up on her lasix for the last 2 days and the swelling has improved. She was noted to be wheezing and only able to speak short sentences upon arrival to the ED. She received DuoNeb x3, Solu- Medrol 125 mg IV, Rocephin 1 g IV, azithromycin 500 mg IV, Tylenol 650 mg by mouth, Tamiflu 75 mg by mouth. She was tachycardic in the 110s to 130s and therefore CT pulmonary angiogram was performed which was negative for pulmonary embolism but demonstrated mild emphysema and bilateral distal airway peribronchial thickening. She received 2 L normal saline bolus in the ED. Heart rate is now in the 90s to 100. She is normotensive with lactic acid 1.4. BNP is 32. Troponin negative. Sodium is 132. She now appears comfortable and is speaking complete sentences. She states she feels much improved since arrival. Subjective: 08/18: doing well. ambulating. denies sob. denies other complaints. Flu +. tolerating diet. ROS otherwise negative. 08/19: clinically improving. on room air. still with some subjective SOB, but feels much better. ROS negative. Objective Vital Signs Date Time Temp Pulse Resp B/P (MAP) Pulse Ox O2 Delivery O2 Flow Rate FiO2 08/19/17 16:00 97.8 74 27 123/60 (81) 96 08/19/17 08:00 Nasal Cannula 2.00 Intake and Output 08/19/17 08/19/17 08/19/17 07:59 15:59 23:59 Intake Total 460 ml Output Total 150 ml Balance 310 ml Result Diagram: 08/19/17 0420 08/19/17 0420 Other Results Microbiology Date/Time Source Procedure Growth Status 08/17/17 22:24 Sputum Expectorated Sputum Gram Stain - Final Complete 08/17/17 22:24 Sputum Expectorated Sputum Sputum Culture - Final HEAVY GROWTH NORMAL RESPIRATORY GURJIT Complete Objective Remarks GENERAL: Very pleasant elderly female who is sitting up in [facility] bed, breathing comfortably and speaking complete sentences. SKIN: Warm and dry, well-perfused without rash. HEAD: Atraumatic. Normocephalic. EYES: Pupils 2 mm and reactive bilaterally. No scleral icterus. No injection or drainage. ENT: No nasal bleeding or discharge. Mucous membranes moist. NECK: Trachea midline. No JVD. CARDIOVASCULAR: normal rate, regular rhythm. sinus by tele. RESPIRATORY: unlabored. equal chest rise. room air GASTROINTESTINAL: Abdomen soft, non-tender, nondistended. MUSCULOSKELETAL: Extremities without clubbing, cyanosis. No significant edema. NEUROLOGICAL: Awake and alert. No obvious cranial nerve deficits. Motor grossly within normal limits. Normal speech. Hard of hearing A/P Assessment and Plan Assessment 77yF with COPD and CHF (systolic, EF 20%) who presents with acute hypoxemia and has influenza pneumonia. clinically improving. de-escalate to tamiflu monotherapy today. transfer out of ICU and may be able to discharge home within next 24h. NEURO: Tylenol as needed for pain or fever RESP: Influenza pneumonia Acute COPD exacerbation Mild emphysema Tobacco abuse DuoNeb every 4 hours. Albuterol every 2 hours as needed. Received Solu-Medrol 125 mg IV on 08/16/17. Will hold on further steroids at this time as it may exacerbate fluid retention, Hold Advair. Discussed tobacco cessation. Nicotine patch. CT pulmonary angiogram - negative for pe, mild emphysema, bilateral distal airway peribronchial thickening CV: Coronary artery disease Chronic systolic heart failure Moderate mitral regurgitation Moderate aortic regurgitation Biventricular pacer/ ICD in place ?Hyperlipidemia Chronic systolic heart failure currently appears compensated. BNP is low. Continue metoprolol 12.5 mg by mouth twice a day with hold orders. Today will hold lisinopril 5 millgrams daily. borderline hypotensive. Continue aspirin 81 mg by mouth daily Echo 07/03/15 - ejection fraction 20-25%, dilated LV, moderate aortic regurgitation, moderate to severe mitral regurgitation, Reportedly not on any lipid lowering agent at home. Ordered Daily weights, monitor intake and output. trops negative. EKG paced. GI: GERD Heart healthy diet. 2 g sodium restriction On H2 dodie at home, use famotidine FEN/RENAL: Elevated CPK Voiding. Monitor creatinine. Monitor urine output. Received IV contrast 08/16/17 CPK mildly elevated which may be secondary to viral illness Lasix 20 mg by mouth daily ID: Community acquired pneumonia, atypical/viral CT with peribronchial cuffing which can be seen with atypical pneumonia. 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 Denies h/o HIV or immunosuppression. Received Rocephin, azithromycin, and Tamiflu in the ED. flu antigen + Follow-up blood culture. tamiflu keep azithro x 5 days (stop date 08/21) for atypical CAP coverage d/c rocephin- cultures negative. HEME: Chronic anemia Asymptomatic, monitor CBC ENDO: ? Hypothyroidism Patient states she has been followed by endocrinology but has not been on thyroid medication. PROPH: SCD/Lovenox 40 mg subcutaneous daily for DVT prophylaxis. Famotidine for stress ulcer prophylaxis. ACCESS: Peripheral IV providing adequate access at this time. Patient states that she is agreeable to intubation if needed for respiratory failure. She desires full code. dispo: transfer to floor. consult hospitalist. Freedom Fitzgerald MD Aug 19, 2017 18:01
[2017-08-19] MEDS: AZITHROMYCIN 250 MG TAB PO SCH (18:10)
[2017-08-19] MEDS: REMOVE OLD PATCH T-DERMAL SCH (21:00)
[2017-08-20] VITALS (8 sets, daily range): BP systolic 115–138; BP diastolic 56–65; PULSE 64–82; RESP 16–18; TEMP 97.5–98.1; O2SAT 93–96
[2017-08-20] MEDS: ENOXAPARIN SODIUM 40 MG/0.4 ML SYRINGE SQ SCH (00:49)
[2017-08-20] MEDS: CHLORHEXIDINE GLUCONATE 2 % 1 PACK (2 CLOTHS) TOP SCH (03:16)
[2017-08-20] MEDS: RESP: ALBUTEROL 2.5 MG/IPRATROPIUM 0.5 MG NEB (SCH) NEB ×3 (03:24→07:54)
[2017-08-20 08:03] LABS: AUTOMATED NEUTROPHIL # 4.3 TH/MM3 (1.8-7.7); BASOPHIL # 0.1 TH/MM3 (0-0.2); BASOPHIL % 0.7 % (0.0-2.0); EOSINOPHIL # 0.2 TH/MM3 (0-0.4); HEMATOCRIT 32.9 % (35.0-46.0); HEMOGLOBIN 10.5 GM/DL (11.6-15.3); LYMPH % 27.7 % (9.0-44.0); MEAN CELL VOLUME 73.6 FL (80.0-100.0); MEAN CORPUSCULAR HEMOGLOBIN 23.4 PG (27.0-34.0); MEAN CORPUSCULAR HGB CONC 31.8 % (32.0-36.0); MEAN PLATELET VOLUME 7.9 FL (7.0-11.0); MONO % 9.7 % (0.0-8.0); MONOCYTE # 0.7 TH/MM3 (0-0.9); NEUT % 58.9 % (16.0-70.0); PLATELET COUNT 185 TH/MM3 (150-450); RED BLOOD COUNT 4.48 MIL/MM3 (4.00-5.30); RED CELL DISTRIBUTION WIDTH 15.8 % (11.6-17.2); WHITE BLOOD COUNT 7.3 TH/MM3 (4.0-11.0)
[2017-08-20 08:17] LABS: ALBUMIN 2.6 GM/DL (3.4-5.0); ALT (GPT) 19 U/L (10-53); AST (GOT) 18 U/L (15-37); BICARBONATE 35.9 MEQ/L (21.0-32.0); BLOOD UREA NITROGEN 20 MG/DL (7-18); CALCIUM 8.5 MG/DL (8.5-10.1); CHLORIDE 98 MEQ/L (98-107); CREATININE 0.68 MG/DL (0.50-1.00); GLOMERULAR FILTRATION RATE 84 ML/MIN (>89); GLUCOSE,RANDOM 93 MG/DL (74-106); SODIUM (NA) 137 MEQ/L (136-145)
[2017-08-20 08:20] LABS: ALKALINE PHOSPHATASE 61 U/L (45-117); TOTAL BILIRUBIN ADULT 0.4 MG/DL (0.2-1.0); TOTAL PROTEIN 6.8 GM/DL (6.4-8.2)
--- NOTE | 2017-08-20 08:59 | HHI.PR ---
Subjective Remarks Direct Customer Service Representative Notes: 77 year-old female with past medical history of COPD on 2 L home O2, chronic systolic heart failure with ejection fraction 20-25% and moderate to severe MR/moderate AR, status post resynchronization therapy with biventricular pacer/ICD, coronary artery disease with prior myocardial infarction that has been medically managed, hyperlipidemia, who presents to [facility] emergency department with SOB, cough, fever. She states that her symptoms began Monday08/15/17 with extreme fatigue. She also had sore throat, nonproductive cough. She was febrile to 102.6 rectal. She denies myalgias, headache, chest pain, nausea, vomiting. She was recently exposed to her friend who had URI symptoms. She states about 3 days ago that her feet were swollen and her weight was up 5 pounds so she doubled up on her lasix for the last 2 days and the swelling has improved. She was noted to be wheezing and only able to speak short sentences upon arrival to the ED. She received DuoNeb x3, Solu- Medrol 125 mg IV, Rocephin 1 g IV, azithromycin 500 mg IV, Tylenol 650 mg by mouth, Tamiflu 75 mg by mouth. She was tachycardic in the 110s to 130s and therefore CT pulmonary angiogram was performed which was negative for pulmonary embolism but demonstrated mild emphysema and bilateral distal airway peribronchial thickening. She received 2 L normal saline bolus in the ED. Heart rate is now in the 90s to 100. She is normotensive with lactic acid 1.4. BNP is 32. Troponin negative. Sodium is 132. She now appears comfortable and is speaking complete sentences. She states she feels much improved since arrival. 08/18: doing well. ambulating. denies sob. denies other complaints. Flu +. tolerating diet. ROS otherwise negative. 08/19: clinically improving. on room air. still with some subjective SOB, but feels much better. ROS negative. Hospitalist Notes: 08/20: Stable in her bedroom, at baseline may be discharge from medicine standpoint, will go home and continue oxygen will continue home medicines. no nausea, vomit or diarrhea. Objective Vital Signs Date Time Temp Pulse Resp B/P (MAP) Pulse Ox O2 Delivery O2 Flow Rate FiO2 08/20/17 08:00 97.6 79 16 123/61 (81) 96 08/20/17 07:52 96 Nasal Cannula 2.00 08/20/17 04:00 97.8 81 18 115/56 (75) 95 08/20/17 04:00 Nasal Cannula 2.00 08/20/17 03:41 64 08/20/17 00:46 93 Nasal Cannula 2.00 08/20/17 00:00 Nasal Cannula 2.00 08/20/17 00:00 98.1 82 16 117/65 (82) 96 08/19/17 23:46 76 08/19/17 20:50 85 08/19/17 20:00 97.8 78 20 117/56 (76) 91 08/19/17 20:00 Nasal Cannula 2.00 08/19/17 18:00 71 08/19/17 16:00 97.8 74 27 123/60 (81) 96 08/19/17 16:00 74 08/19/17 14:00 74 08/19/17 12:00 98.0 71 25 131/63 (85) 97 08/19/17 12:00 71 08/19/17 10:00 79 I/O 08/19/17 08/19/17 08/19/17 08/20/17 08/20/17 08/20/17 07:00 15:00 23:00 07:00 15:00 23:00 Intake Total 460 ml 750 ml 240 ml Output Total 150 ml 1200 ml Balance 310 ml -450 ml 240 ml Intake Oral 360 ml 750 ml 240 ml IV Total 100 ml Output Urine Total 150 ml 1200 ml # Voids 2 1 # Bowel Movements 0 1 0 Result Diagram: 08/20/17 0724 08/20/17 0724 Imaging Last Impressions Chest X-Ray 08/18/17 0000 Signed Impressions: Service Date/Time: Friday, August 18, 2017 03:35 - CONCLUSION: Mild right base atelectasis or consolidation. Mason Trejo MD CT Angiography 08/16/17 1841 Signed Impressions: Service Date/Time: Wednesday, August 16, 2017 19:46 - CONCLUSION: 1. Negative for pulmonary embolus. 2. Extensive peribronchial thickening with distal airway disease especially at the lung bases. Finding could represent atypical mycobacterial disease. 3. Moderate coronary calcifications. Kingsley Ash MD Procedures None Other Results Laboratory Tests Test 08/16/17 17:20 08/16/17 17:35 08/16/17 21:00 08/16/17 23:30 Urine Color YELLOW Urine Turbidity CLEAR Urine pH 5.5 Urine Specific [place] 1.015 Urine Protein NEG mg/dL Urine Glucose (UA) NEG mg/dL Urine Ketones NEG mg/dL Urine Occult Blood SMALL Urine Nitrite NEG Urine Bilirubin NEG Urine Leukocyte Esterase NEG Urine RBC 0-3 /hpf Urine WBC 0-2 /hpf Urine Squamous Epithelial Cells 0-5 /hpf Urine Hyaline Casts 20-24 /lpf Urine Mucus FEW /lpf Microscopic Urinalysis Comment CATH-CULT NOT IND Prothrombin Time 10.8 SEC Prothromb Time International Ratio 1.1 RATIO Activated Partial Thromboplast Time 23.3 SEC Lactic Acid Level 1.4 mmol/L Total Creatine Kinase 213 U/L Creatine Kinase MB 1.7 NG/ML Creatine Kinase MB % 0.8 % Adenovirus (PCR) NOT DETECTED Bordetella holmesii (PCR) NOT DETECTED Bordetella pertussis DNA (PCR) NOT DETECTED B. parapertussis/bronchi (PCR) NOT DETECTED Human Metapneumovirus (PCR) NOT DETECTED Influenza Type A (RT-PCR) DETECTED Influenza Type A (H1) (PCR) DETECTED Influenza Type A (H3) (PCR) NOT DETECTED Influenza Type B (RT-PCR) NOT DETECTED Parainfluenza Type 1 (PCR) NOT DETECTED Parainfluenza Type 2 (PCR) NOT DETECTED Parainfluenza Type 3 (PCR) NOT DETECTED Parainfluenza Type 4 (PCR) NOT DETECTED Resp Syncytial Virus Type A (PCR) NOT DETECTED Resp Syncytial Virus Type B (PCR) NOT DETECTED Rhinovirus (PCR) NOT DETECTED Nasal Screen MRSA (PCR) MRSA NOT DETECTED Test 08/17/17 05:34 08/17/17 15:52 08/18/17 03:34 08/20/17 07:24 Blood Gas Puncture Site RT RADIAL Blood Gas Patient Temperature 98.6 Blood Gas HCO3 24 mmol/L Blood Gas Base Excess -1.1 mmol/L Blood Gas Oxygen Saturation 93 % Arterial Blood pH 7.32 Arterial Blood Partial Pressure CO2 49 mmHg Arterial Blood Partial Pressure O2 89 mmHg Arterial Blood Oxygen Content 11.8 Vol % Arterial Blood Carboxyhemoglobin 0.9 % Arterial Blood Methemoglobin 1.7 % Blood Gas Hemoglobin 8.9 G/DL Oxygen Delivery Device NASAL CANNULA Blood Gas Liter Flow 2 L/M Troponin I LESS THAN 0.02 NG/ML Thyroxine (T4) 8.8 MCG/DL Free Triiodothyronine (T3) pg/dL 3.04 PG/ML Thyroid Stimulating Hormone 3rd Gen LESS THAN 0.005 uIU/ML Protein Corrected Calcium 8.1 MG/DL Blood Urea Nitrogen 21 MG/DL 20 MG/DL Creatinine 0.74 MG/DL 0.68 MG/DL Random Glucose 118 MG/DL 93 MG/DL Total Protein 5.9 GM/DL 6.8 GM/DL Albumin 2.3 GM/DL 2.6 GM/DL Calcium Level 7.4 MG/DL 8.5 MG/DL Phosphorus Level 2.6 MG/DL Magnesium Level 2.3 MG/DL Alkaline Phosphatase 50 U/L 61 U/L Aspartate Amino Transf (AST/SGOT) 14 U/L 18 U/L Alanine Aminotransferase (ALT/SGPT) 14 U/L 19 U/L Total Bilirubin 0.1 MG/DL 0.4 MG/DL Sodium Level 141 MEQ/L 137 MEQ/L Potassium Level 4.3 MEQ/L 4.4 MEQ/L Chloride Level 105 MEQ/L 98 MEQ/L Carbon Dioxide Level 32.0 MEQ/L 35.9 MEQ/L B-Type Natriuretic Peptide 166 PG/ML White Blood Count 7.3 TH/MM3 Red Blood Count 4.48 MIL/MM3 Hemoglobin 10.5 GM/DL Hematocrit 32.9 % Mean Corpuscular Volume 73.6 FL Mean Corpuscular Hemoglobin 23.4 PG Mean Corpuscular Hemoglobin Concent 31.8 % Red Cell Distribution Width 15.8 % Platelet Count 185 TH/MM3 Mean Platelet Volume 7.9 FL Neutrophils (%) (Auto) 58.9 % Lymphocytes (%) (Auto) 27.7 % Monocytes (%) (Auto) 9.7 % Eosinophils (%) (Auto) 3.0 % Basophils (%) (Auto) 0.7 % Neutrophils # (Auto) 4.3 TH/MM3 Lymphocytes # (Auto) 2.0 TH/MM3 Monocytes # (Auto) 0.7 TH/MM3 Eosinophils # (Auto) 0.2 TH/MM3 Basophils # (Auto) 0.1 TH/MM3 CBC Comment DIFF FINAL Differential Comment Anion Gap 3 MEQ/L Estimat Glomerular Filtration Rate 84 ML/MIN Objective Remarks GENERAL: No acute distress. SKIN: Warm and dry, well-perfused without rash. HEAD: Atraumatic. Normocephalic. EYES: Pupils 2 mm and reactive bilaterally. No scleral icterus. No injection or drainage. ENT: No nasal bleeding or discharge. Mucous membranes moist. NECK: Trachea midline. No JVD. CARDIOVASCULAR: normal rate, regular rhythm. sinus by tele. RESPIRATORY: unlabored. equal chest rise. room air GASTROINTESTINAL: Abdomen soft, non-tender, nondistended. MUSCULOSKELETAL: Extremities without clubbing, cyanosis. No significant edema. NEUROLOGICAL: Awake and alert. No obvious cranial nerve deficits. Motor grossly within normal limits. Normal speech. Hard of hearing Medications and IVs Current Medications Medications (Trade) Dose Ordered Sig/Katie Route Start Time Stop Time Status Last Admin (Albuterol Neb) 2.5 mg Q2HR NEB PRN NEB 08/17/17 00:15 (NS Flush) 2 ml UNSCH PRN IV FLUSH 08/17/17 01:00 (NS Flush) 2 ml BID IV FLUSH 08/17/17 09:00 08/19/17 21:07 (Tylenol) 650 mg Q6H PRN PO 08/17/17 01:00 (Zofran Inj) 4 mg Q6H PRN IV PUSH 08/17/17 01:00 (Lovenox Inj) 40 mg Q24H SQ 08/17/17 01:00 08/20/17 00:49 Miscellaneous Information 1 [id number] XX 08/17/17 01:00 (Chlorhexidine 2% Cloth) 3 pack Taper DAILY@04 TOP 08/17/17 04:00 08/13/18 03:59 08/19/17 04:00 (Chlorhexidine 2% Cloth) 3 pack UNSCH PRN TOP 08/17/17 01:00 (Camila-Colace) 1 tab BID PO 08/17/17 09:00 08/19/17 21:07 (Milk Of Magnesia Liq) 30 ml Q12H PRN PO 08/17/17 01:00 (Senokot) 17.2 mg Q12H PRN PO 08/17/17 01:00 (Dulcolax Supp) 10 mg DAILY PRN RECTAL 08/17/17 01:00 (Lactulose Liq) 30 ml DAILY PRN PO 08/17/17 01:00 (Tamiflu) 75 mg BID PO 08/17/17 09:00 08/19/17 21:07 (Zithromax) 500 mg Q24H PO 08/17/17 19:00 08/21/17 19:00 08/19/17 18:10 (Habitrol 21 Mg Patch.24 Hr) 1 patch DAILY T-DERMAL 08/17/17 09:00 Miscellaneous Information 1 HS T-DERMAL 08/17/17 21:00 (Aspirin Chew) 81 mg DAILY CHEW 08/17/17 09:00 08/19/17 11:25 (Lasix) 20 mg DAILY PO 08/17/17 09:00 08/19/17 11:25 (Lopressor) 12.5 mg BID PO 08/17/17 09:00 08/19/17 21:07 (Pill Splitter) 1 ea UNSCH PRN OTHER 08/17/17 01:45 (Duoneb Neb) 1 ampule Q4HR NEB NEB 08/17/17 04:00 08/20/17 07:54 (Pepcid) 10 mg Q12HR PO 08/17/17 21:00 08/19/17 21:07 (Pill Splitter) 1 ea UNSCH PRN OTHER 08/17/17 13:30 A/P Assessment and Plan 1. Influenza Pneumonia Improving. 2. COPD exacerbation/Emphysema, Bronchodilator, Mucolytic and incentive spirometry, on hold Advair, Steroids on hold due to fluid retention 3. Tobacco dependence strongly recommended to stop smoking. Nicotine patch 4. CAD/chronic systolic heart failure/Biventricular pacer/ICD in place, CTA negative for PE. compensated CHF Metoprolol 12.5 mg BID, Lisinopril on hold due to Hypotension. Aspirin 81 mg daily. Echo 07/03/15 - ejection fraction 20-25%, dilated LV, moderate aortic regurgitation, moderate to severe mitral regurgitation, on Lasix, 5. Hyperlipidemia not on Lipid lowering agents at home. 6. GERD on Famotidine 7. Elevated CPK as per senior label specialist probable secondary to Viral illness. Improved. 8. Community acquired Pneumonia atypical/viral CT with peribronchial cuffing which can be seen with atypical pneumonia. 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 Denies h/o HIV or immunosuppression. Flu antigen Positive. on Tamiflu, Azithromycin for five days until 08/21/17 for CAP atypical coverage and was removed Ceftriaxone. will continue Azithromycin and Oseltamivir at discharge to complete five days 9. Hypothyroidism social media marketing specialist following as outpatient but not on Hormonal replacement. PROPH: SCD/Lovenox 40 mg subcutaneous daily for DVT prophylaxis. Famotidine for stress ulcer prophylaxis. Code Full Discharge Planning Expected later today. Edward Nath MD Aug 20, 2017 08:59
[2017-08-20] MEDS: NICOTINE 21 MG/24 HR PATCH T-DERMAL SCH (09:00)
[2017-08-20] MEDS: METOPROLOL TARTRATE 25 MG TAB PO SCH (09:26)
[2017-08-20] MEDS: DOCUSATE SODIUM 50 MG/SENNA 8.6 MG TAB PO SCH (09:26)
[2017-08-20] MEDS: OSELTAMIVIR PHOSPHATE 75 MG CAP PO SCH (09:26)
[2017-08-20] MEDS: ASPIRIN 81 MG CHEW TAB CHEW SCH (09:27)
[2017-08-20] MEDS: FAMOTIDINE 20 MG TAB PO SCH (09:27)
[2017-08-20] MEDS: FUROSEMIDE 20 MG TAB PO SCH (09:27)
[2017-08-20] MEDS: SODIUM CHLORIDE 0.9% FLUSH 10 ML FLUSH IV FLUSH SCH (09:27)
[2017-08-20] MEDS ORDERED: NICO21DI25 T-DERMAL (14:28)
[2017-08-20] MEDS ORDERED: OSEL75 PO (14:28)
[2017-08-20] MEDS ORDERED: POTA10CA PO (14:28)
[2017-08-20] MEDS ORDERED: AZIT500T2 PO (14:28)
--- NOTE | 2017-08-20 14:33 | HHI.DS ---
Discharge Summary Admission Date Aug 16, 2017 at 20:41 Discharge Date: Aug 20, 2017 Admitting Diagnosis sepsis, influenza-like illness, COPD exacerbation (1) COPD (chronic obstructive pulmonary disease) ICD Code: J44.9 - Chronic obstructive pulmonary disease Diagnosis: Principal Status: Acute (2) Chronic respiratory failure with hypoxia ICD Code: J96.11 - Chronic respiratory failure with hypoxia Diagnosis: Principal Status: Acute (3) Influenza-like illness ICD Code: R69 - Illness, unspecified Diagnosis: Principal Status: Acute Procedures None Brief History - From Admission 77 year-old female with past medical history of COPD on 2 L home O2, chronic systolic heart failure with ejection fraction 20-25% and moderate to severe MR/moderate AR, status post resynchronization therapy with biventricular pacer/ICD, coronary artery disease with prior myocardial infarction that has been medically managed, hyperlipidemia, who presents to [facility] emergency department with SOB, cough, fever. She states that her symptoms began Monday08/15/17 with extreme fatigue. She also had sore throat, nonproductive cough. She was febrile to 102.6 rectal. She denies myalgias, headache, chest pain, nausea, vomiting. She was recently exposed to her friend who had URI symptoms. She states about 3 days ago that her feet were swollen and her weight was up 5 pounds so she doubled up on her lasix for the last 2 days and the swelling has improved. She was noted to be wheezing and only able to speak short sentences upon arrival to the ED. She received DuoNeb x3, Solu- Medrol 125 mg IV, Rocephin 1 g IV, azithromycin 500 mg IV, Tylenol 650 mg by mouth, Tamiflu 75 mg by mouth. She was tachycardic in the 110s to 130s and therefore CT pulmonary angiogram was performed which was negative for pulmonary embolism but demonstrated mild emphysema and bilateral distal airway peribronchial thickening. She received 2 L normal saline bolus in the ED. Heart rate is now in the 90s to 100. She is normotensive with lactic acid 1.4. BNP is 32. Troponin negative. Sodium is 132. She now appears comfortable and is speaking complete sentences. She states she feels much improved since arrival. CBC/BMP: 08/20/17 0724 08/20/17 0724 Significant Findings Laboratory Tests Test 08/17/17 15:52 08/18/17 03:34 08/19/17 04:20 08/20/17 07:24 Troponin I LESS THAN 0.02 NG/ML Thyroid Stimulating Hormone 3rd Gen LESS THAN 0.005 uIU/ML Red Blood Count 3.67 MIL/MM3 (4.00-5.30) Hemoglobin 8.6 GM/DL (11.6-15.3) 9.6 GM/DL (11.6-15.3) 10.5 GM/DL (11.6-15.3) Hematocrit 27.0 % (35.0-46.0) 30.2 % (35.0-46.0) 32.9 % (35.0-46.0) Mean Corpuscular Volume 73.6 FL (80.0-100.0) 72.7 FL (80.0-100.0) 73.6 FL (80.0-100.0) Mean Corpuscular Hemoglobin 23.3 PG (27.0-34.0) 23.1 PG (27.0-34.0) 23.4 PG (27.0-34.0) Mean Corpuscular Hemoglobin Concent 31.7 % (32.0-36.0) 31.8 % (32.0-36.0) 31.8 % (32.0-36.0) Platelet Count 137 TH/MM3 (150-450) Neutrophils (%) (Auto) 72.9 % (16.0-70.0) Monocytes (%) (Auto) 8.5 % (0.0-8.0) 9.7 % (0.0-8.0) Blood Urea Nitrogen 21 MG/DL (7-18) 19 MG/DL (7-18) 20 MG/DL (7-18) Random Glucose 118 MG/DL (74-106) Total Protein 5.9 GM/DL (6.4-8.2) Albumin 2.3 GM/DL (3.4-5.0) 2.6 GM/DL (3.4-5.0) Calcium Level 7.4 MG/DL (8.5-10.1) Aspartate Amino Transf (AST/SGOT) 14 U/L (15-37) Total Bilirubin 0.1 MG/DL (0.2-1.0) Anion Gap 4 MEQ/L (5-15) 3 MEQ/L (5-15) Estimat Glomerular Filtration Rate 76 ML/MIN (>89) 84 ML/MIN (>89) Protein Corrected Calcium 8.1 MG/DL (8.5-10.1) B-Type Natriuretic Peptide 166 PG/ML (0-100) Carbon Dioxide Level 33.6 MEQ/L (21.0-32.0) 35.9 MEQ/L (21.0-32.0) Imaging Last Impressions Chest X-Ray 08/18/17 0000 Signed Impressions: Service Date/Time: Friday, August 18, 2017 03:35 - CONCLUSION: Mild right base atelectasis or consolidation. Mason Trejo MD CT Angiography 08/16/17 1841 Signed Impressions: Service Date/Time: Wednesday, August 16, 2017 19:46 - CONCLUSION: 1. Negative for pulmonary embolus. 2. Extensive peribronchial thickening with distal airway disease especially at the lung bases. Finding could represent atypical mycobacterial disease. 3. Moderate coronary calcifications. Kingsley Ash MD PE at Discharge GENERAL: No acute distress. SKIN: Warm and dry, well-perfused without rash. HEAD: Atraumatic. Normocephalic. EYES: Pupils 2 mm and reactive bilaterally. No scleral icterus. No injection or drainage. ENT: No nasal bleeding or discharge. Mucous membranes moist. NECK: Trachea midline. No JVD. CARDIOVASCULAR: normal rate, regular rhythm. sinus by tele. RESPIRATORY: unlabored. equal chest rise. room air GASTROINTESTINAL: Abdomen soft, non-tender, nondistended. MUSCULOSKELETAL: Extremities without clubbing, cyanosis. No significant edema. NEUROLOGICAL: Awake and alert. No obvious cranial nerve deficits. Motor grossly within normal limits. Normal speech. Hard of hearing Hospital Course [employer] Notes: 77 year-old female with past medical history of COPD on 2 L home O2, chronic systolic heart failure with ejection fraction 20-25% and moderate to severe MR/moderate AR, status post resynchronization therapy with biventricular pacer/ICD, coronary artery disease with prior myocardial infarction that has been medically managed, hyperlipidemia, who presents to [facility] emergency department with SOB, cough, fever. She states that her symptoms began Monday08/15/17 with extreme fatigue. She also had sore throat, nonproductive cough. She was febrile to 102.6 rectal. She denies myalgias, headache, chest pain, nausea, vomiting. She was recently exposed to her friend who had URI symptoms. She states about 3 days ago that her feet were swollen and her weight was up 5 pounds so she doubled up on her lasix for the last 2 days and the swelling has improved. She was noted to be wheezing and only able to speak short sentences upon arrival to the ED. She received DuoNeb x3, Solu- Medrol 125 mg IV, Rocephin 1 g IV, azithromycin 500 mg IV, Tylenol 650 mg by mouth, Tamiflu 75 mg by mouth. She was tachycardic in the 110s to 130s and therefore CT pulmonary angiogram was performed which was negative for pulmonary embolism but demonstrated mild emphysema and bilateral distal airway peribronchial thickening. She received 2 L normal saline bolus in the ED. Heart rate is now in the 90s to 100. She is normotensive with lactic acid 1.4. BNP is 32. Troponin negative. Sodium is 132. She now appears comfortable and is speaking complete sentences. She states she feels much improved since arrival. 08/18: doing well. ambulating. denies sob. denies other complaints. Flu +. tolerating diet. ROS otherwise negative. 08/19: clinically improving. on room air. still with some subjective SOB, but feels much better. ROS negative. Hospitalist Notes: 08/20: Stable in her bedroom, at baseline may be discharge from medicine standpoint, will go home and continue oxygen will continue home medicines. no nausea, vomit or diarrhea. Assessment and Plan 1. Influenza Pneumonia Improving. 2. COPD exacerbation/Emphysema, Bronchodilator, Mucolytic and incentive spirometry, on hold Advair, Steroids on hold due to fluid retention 3. Tobacco dependence strongly recommended to stop smoking. Nicotine patch 4. CAD/chronic systolic heart failure/Biventricular pacer/ICD in place, CTA negative for PE. compensated CHF Metoprolol 12.5 mg BID, Lisinopril on hold due to Hypotension. Aspirin 81 mg daily. Echo 07/03/15 - ejection fraction 20-25%, dilated LV, moderate aortic regurgitation, moderate to severe mitral regurgitation, on Lasix, 5. Hyperlipidemia not on Lipid lowering agents at home. 6. GERD on Famotidine 7. Elevated CPK as per emr specialist probable secondary to Viral illness. Improved. 8. Community acquired Pneumonia atypical/viral CT with peribronchial cuffing which can be seen with atypical pneumonia. 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 Denies h/o HIV or immunosuppression. Flu antigen Positive. on Tamiflu, Azithromycin for five days until 08/21/17 for CAP atypical coverage and was removed Ceftriaxone. will continue Azithromycin and Oseltamivir at discharge to complete five days 9. Hypothyroidism licensing specialist following as outpatient but not on Hormonal replacement. PROPH: SCD/Lovenox 40 mg subcutaneous daily for DVT prophylaxis. Famotidine for stress ulcer prophylaxis. Code Full Discharge Planning Discharge today. Pt Condition on Discharge: Good Discharge Disposition: Discharge Home Discharge Time: > 30 minutes Discharge Instructions DIET: Follow Instructions for: Heart Healthy Diet Activities you can perform: Regular-No Restrictions Edward Nath MD Aug 20, 2017 14:33
== END 2017-08-20 15:37 | disposition home or self-care (01) | DRG 194 ==
LOC: PHED 16:48 → PHEDA 20:41 → HIME 23:25 → HIMW 08-17 08:30 → N04A 08-19 19:50
PROVIDERS: ADMIT Internal Medicine; ATTEND Internal Medicine
DX: J11.00 Influenza due to unidentified influenza virus with unspecified type of pneumonia (principal); I50.22 Chronic systolic (congestive) heart failure; J44.0 Chronic obstructive pulmonary disease with (acute) lower respiratory infection; Z99.81 Dependence on supplemental oxygen; J44.1 Chronic obstructive pulmonary disease with (acute) exacerbation; I25.10 Atherosclerotic heart disease of native coronary artery without angina pectoris; I25.2 Old myocardial infarction; Z95.810 Presence of automatic (implantable) cardiac defibrillator; I08.0 Rheumatic disorders of both mitral and aortic valves; F17.210 Nicotine dependence, cigarettes, uncomplicated; E78.5 Hyperlipidemia, unspecified; K21.9 Gastro-esophageal reflux disease without esophagitis; E03.9 Hypothyroidism, unspecified; H91.90 Unspecified hearing loss, unspecified ear; M19.90 Unspecified osteoarthritis, unspecified site; D64.9 Anemia, unspecified
CPT/HCPCS: 36600; 71045; 71275; 80048; 80053; 81001; 82550; 82552; 82805; 82948; 83605; 83735; 83880; 84100; 84155; 84436; 84443; 84481; 84484; 85025; 85027; 85610; 85730; 87015; 87040; 87070; 87116; 87205; 87206; 87449; 87633; 87641; 87804; 93005; 94640; 94664; 96365; 96368; 96375; J0456; J0696; J1650; J2930; J7030; J7050; Q9967

== ENCOUNTER 2017-10-17 15:55 | Emergency (ER) | payer MEDICARE, OTHER ==
[~2017-10-17] VITALS: Ht 152.4 cm; Wt 56.7 kg
[~2017-10-17 15:55] MED LIST changes: +AZIT500T2 PO; -LISI-519 PO; +NICO21DI25 T-DERMAL; +OSEL75 PO; -PRED20 PO; -guaiFENesin ER PO
[2017-10-17 16:15] VITALS: BP 92/50; PULSE 108; RESP 22; TEMP 97.8; O2SAT 93
[2017-10-17 16:30] VITALS: RESP 22; O2SAT 95
[2017-10-17] MEDS ORDERED: methylPREDNISolone SOD SUCC 125 MG/2 ML VIAL IV PUSH ONE (16:30)
[2017-10-17] MEDS ORDERED: SODIUM CHLORIDE 0.9% FLUSH 10 ML FLUSH IVF PRN (16:30)
--- NOTE | 2017-10-17 16:37 | PD ---
HPI Chief Complaint: Respiratory Symptoms Time Seen by Provider: 16:22 Travel History International Travel<30 days: No Contact w/Intl Traveler<30days: No Traveled to known affect area: No History of Present Illness HPI Patient is a 77 year old female who comes in complaining of SOB. She has history of COPD and CHF with a EF of 30%. She says she has been short of breath for 4 days with a cough that became worse today. She has been using her inhaler at home without relief of her symptoms. She denies any chest pain. She says she has not noticed any increased swelling of her legs and she is compliant with her medications. She denies fever or chills. She denies nausea or vomiting. Severity is moderate. PFSH Past Medical History Hx Anticoagulant Therapy: Yes (asa 81mg) Arthritis: Yes Asthma: No Autoimmune Disease: No Anxiety: No Depression: No Heart Rhythm Problems: No Cancer: No Cardiovascular Problems: Yes (pacemaker, defib, [place]) High Cholesterol: Yes Chest Pain: No Congestive Heart Failure: Yes COPD: Yes (2L O2 dependent at home) Cerebrovascular Accident: No Coronary Artery Disease: Yes Diabetes: No Diminished Hearing: Yes ([place]) Endocrine: No Gastrointestinal Disorders: Yes GERD: Yes Genitourinary: No Headaches: No Hiatal Hernia: No Heparin Induced Thrombocytopen: No Hypertension: Yes Immune Disorder: No Implanted Vascular Access Dvce: No Musculoskeletal: Yes Neurologic: Yes Psychiatric: No Reproductive: No Respiratory: Yes Migraines: No Seizures: No Sickle Cell Disease: No Sleep Apnea: No Thyroid Disease: Yes (hypo) Ulcer: No ?: Not Menopausal: Yes Tubal Ligation: Yes Past Surgical History Abdominal Surgery: Yes (APPENDIX, GALL BLADDER) AICD: No Appendectomy: Yes Arteriovenous Shunt: No Cardiac Surgery: Yes (bilateral leg veins stripped ' PACER) Cholecystectomy: Yes Ear Surgery: No Endocrine Surgery: No Eye Surgery: Yes (EYE SURGERY A CHILD, cataracts) Genitourinary Surgery: Yes (BLADDER REPAIR) Gynecologic Surgery: Yes (TUBAL) Insulin Pump: No Joint Replacement: No Neurologic Surgery: No Oral Surgery: Yes (TONSILS REMOVED) Pacemaker: No Thoracic Surgery: No Tonsillectomy: Yes Other Surgery: Yes Social History Alcohol Use: No Tobacco Use: Yes (07/27 PPD) Substance Use: No Allergies-Medications (Allergen,Severity, Reaction): Coded Allergies: tetanus toxoid, adsorbed (Unverified Allergy, Intermediate, RASH, 10/17/17) bupropion (Verified Allergy, Unknown, 10/17/17) shellfish derived (Verified Allergy, Unknown, 10/17/17) Uncoded Allergies: MUSCLE RELAXERS (Allergy, Intermediate, RASH, 10/17/17) .. Reported Meds & Prescriptions Reported Meds & Active Scripts Active Potassium Chloride ER (Potassium Chloride) 10 Meq Cap 10 Meq PO DAILY take one cap every 48 hours meaning every other day. Reported Lisinopril 5 Mg Tab 5 Mg PO DAILY [Home Oxygen] 2 Liter MARIANELA.CANULA HS Albuterol Neb (Albuterol Sulfate) 0.63 Mg/3 Ml Neb 0.63 Mg NEB Q6HR NEB PRN Advair Hfa 12 GM Inh (Fluticasone-Salmeterol 12 GM Inh) 115-21 Mcg/Act Aer 2 Puff INH BID Metoprolol Tartrate 25 Mg Tab 12.5 Mg PO BID Aspirin 81 Mg Chew 81 Mg CHEW DAILY Ranitidine (Ranitidine HCl) 150 Mg Tab 150 Mg PO BID Furosemide 20 Mg Tab 20 Mg PO DAILY Review of Systems Except as stated in HPI: all other systems reviewed are Neg General / Constitutional: No: Fever, Chills HENT: No: Headaches, Lightheadedness Cardiovascular: No: Chest Pain or Discomfort Respiratory: Positive: Cough, Shortness of Breath Gastrointestinal: No: Nausea, Vomiting Musculoskeletal: No: Myalgias, Edema Skin: No Rash, No Itching Neurologic: No: Weakness, Dizziness Physical Exam Narrative GENERAL: Awake and alert, in no acute distress. SKIN: Focused skin assessment warm/dry. No wounds or signs of infection. HEAD: Atraumatic. Normocephalic. EYES: Pupils equal and round. No scleral icterus. ENT: Mucous membranes pink and moist. NECK: Trachea midline. No JVD. CARDIOVASCULAR: Regular rate and rhythm. No murmur appreciated. RESPIRATORY: No accessory muscle use. Wheezing throughout both lungs. Breath sounds equal bilaterally. GASTROINTESTINAL: Abdomen soft, non-tender, nondistended. MUSCULOSKELETAL: No obvious deformities. No clubbing. No cyanosis. No edema. NEUROLOGICAL: Awake and alert. No obvious cranial nerve deficits. Motor grossly within normal limits. Normal speech. PSYCHIATRIC: Appropriate mood and affect; insight and judgment normal. Data Data Last Documented VS Vital Signs Date Time Temp Pulse Resp B/P (MAP) Pulse Ox O2 Delivery O2 Flow Rate FiO2 10/17/17 18:40 93 22 112/51 (71) 96 Aerosol Mask 10/17/17 16:30 2.00 10/17/17 16:15 97.8 Orders Orders Complete Blood Count With Diff (10/17/17 16:26) Comprehensive Metabolic Panel (10/17/17 16:26) B-Type Natriuretic Peptide (10/17/17 16:26) Act Partial Throm Time (Ptt) (10/17/17 16:26) Prothrombin Time / Inr (Pt) (10/17/17 16:26) Troponin I (10/17/17 16:26) Iv Access Insert/Monitor (10/17/17 16:26) Electrocardiogram (10/17/17 16:26) Ecg Monitoring (10/17/17 16:26) Oximetry (10/17/17 16:26) Oxygen Administration (10/17/17 16:26) Chest, Single Ap (10/17/17 16:26) Sodium Chloride 0.9% Flush (Ns Flush) (10/17/17 16:30) Methylprednisolone So Succ Inj (Solumedr (10/17/17 16:30) Albuterol-Ipratropium Neb (Duoneb Neb) (10/17/17 16:30) Albuterol-Ipratropium Neb (Duoneb Neb) (10/17/17 18:15) Labs Laboratory Tests Test 10/17/17 16:45 White Blood Count 11.8 TH/MM3 Red Blood Count 4.74 MIL/MM3 Hemoglobin 10.8 GM/DL Hematocrit 35.0 % Mean Corpuscular Volume 73.8 FL Mean Corpuscular Hemoglobin 22.8 PG Mean Corpuscular Hemoglobin Concent 31.0 % Red Cell Distribution Width 16.4 % Platelet Count 203 TH/MM3 Mean Platelet Volume 7.5 FL Neutrophils (%) (Auto) 70.9 % Lymphocytes (%) (Auto) 17.6 % Monocytes (%) (Auto) 7.3 % Eosinophils (%) (Auto) 3.5 % Basophils (%) (Auto) 0.7 % Neutrophils # (Auto) 8.3 TH/MM3 Lymphocytes # (Auto) 2.1 TH/MM3 Monocytes # (Auto) 0.9 TH/MM3 Eosinophils # (Auto) 0.4 TH/MM3 Basophils # (Auto) 0.1 TH/MM3 CBC Comment AUTO DIFF Differential Comment AUTO DIFF CONFIRMED Prothrombin Time 10.8 SEC Prothromb Time International Ratio 1.1 RATIO Activated Partial Thromboplast Time 23.3 SEC Blood Urea Nitrogen 26 MG/DL Creatinine 0.97 MG/DL Random Glucose 115 MG/DL Total Protein 8.1 GM/DL Albumin 3.5 GM/DL Calcium Level 8.8 MG/DL Alkaline Phosphatase 68 U/L Aspartate Amino Transf (AST/SGOT) 15 U/L Alanine Aminotransferase (ALT/SGPT) 15 U/L Total Bilirubin 0.3 MG/DL Sodium Level 136 MEQ/L Potassium Level 4.3 MEQ/L Chloride Level 98 MEQ/L Carbon Dioxide Level 34.1 MEQ/L Anion Gap 4 MEQ/L Estimat Glomerular Filtration Rate 56 ML/MIN Troponin I LESS THAN 0.02 NG/ML B-Type Natriuretic Peptide 24 PG/ML MDM Medical Decision Making Medical Screen Exam Complete: Yes Emergency Medical Condition: Yes Medical Record Reviewed: Yes Interpretation(s) ECG shows a paced rhythm. Differential Diagnosis COPD exacerbation versus pneumonia versus bronchitis versus CHF Narrative Course Patient is a 77-year-old female who comes in complaining of shortness of breath. Exam shows wheezing in both lungs. IV established, labs sent. Labs show no acute abnormalities. Chest x-ray performed shows no acute abnormalities. Patient given 3 DuoNeb's as well as a dose of Solu-Medrol. She reports feeling better. She says she does not want to stay in the hospital. She will be discharged home with a prescription for prednisone. Advised follow-up with her doctors. Advised return anytime for any worsening symptoms. Diagnosis Primary Impression: Chronic obstructive pulmonary disease with acute exacerbation Patient Instructions: COPD (Chronic Obstructive Pulmonary Disease) (ED), General Instructions Additional Instructions: Follow up with your doctors. Take the steroids starting tomorrow. Return to the ED as needed for any worsening symptoms. Scripts Prednisone (Prednisone) 50 Mg Tab 50 MG PO DAILY for 3 Days, #3 TAB 0 Refills Prov: Bee Toth MD 10/17/17 Disposition: DISCHARGE HOME Condition: Stable Bee Toth MD Oct 17, 2017 16:37
[2017-10-17] MEDS ORDERED: LISI-519 PO (16:38)
[2017-10-17] MEDS: RESP: ALBUTEROL 2.5 MG/IPRATROPIUM 0.5 MG NEB (SCH) INH (16:48)
[2017-10-17 16:51] LABS: AUTOMATED NEUTROPHIL # 8.3 TH/MM3 (1.8-7.7); BASOPHIL # 0.1 TH/MM3 (0-0.2); BASOPHIL % 0.7 % (0.0-2.0); EOSINOPHIL # 0.4 TH/MM3 (0-0.4); EOSINOPHIL % 3.5 % (0.0-4.0); HEMOGLOBIN 10.8 GM/DL (11.6-15.3); LYMPH % 17.6 % (9.0-44.0); LYMPHOCYTE # 2.1 TH/MM3 (1.0-4.8); MEAN CELL VOLUME 73.8 FL (80.0-100.0); MEAN CORPUSCULAR HEMOGLOBIN 22.8 PG (27.0-34.0); MEAN PLATELET VOLUME 7.5 FL (7.0-11.0); MONO % 7.3 % (0.0-8.0); MONOCYTE # 0.9 TH/MM3 (0-0.9); NEUT % 70.9 % (16.0-70.0); PLATELET COUNT 203 TH/MM3 (150-450); RED BLOOD COUNT 4.74 MIL/MM3 (4.00-5.30); RED CELL DISTRIBUTION WIDTH 16.4 % (11.6-17.2); WHITE BLOOD COUNT 11.8 TH/MM3 (4.0-11.0)
[2017-10-17 16:58] LABS: CHLORIDE 98 MEQ/L (98-107); SODIUM (NA) 136 MEQ/L (136-145)
[2017-10-17 17:01] LABS: CALCIUM 8.8 MG/DL (8.5-10.1)
[2017-10-17 17:02] LABS: ALBUMIN 3.5 GM/DL (3.4-5.0); BICARBONATE 34.1 MEQ/L (21.0-32.0); BLOOD UREA NITROGEN 26 MG/DL (7-18); GLUCOSE,RANDOM 115 MG/DL (74-106)
[2017-10-17 17:04] LABS: ALT (GPT) 15 U/L (10-53); INTERNATIONAL NORMALIZED RATIO 1.1 RATIO; PROTHROMBIN TIME - PATIENT 10.8 SEC (9.8-11.6)
[2017-10-17 17:05] LABS: AST (GOT) 15 U/L (15-37); CREATININE 0.97 MG/DL (0.50-1.00); GLOMERULAR FILTRATION RATE 56 ML/MIN (>89)
[2017-10-17 17:06] LABS: TOTAL BILIRUBIN ADULT 0.3 MG/DL (0.2-1.0); TOTAL PROTEIN 8.1 GM/DL (6.4-8.2)
[2017-10-17 17:07] LABS: ALKALINE PHOSPHATASE 68 U/L (45-117)
[2017-10-17 17:09] LABS: TROPONIN I LESS THAN 0.02 NG/ML (0.02-0.05)
--- NOTE | 2017-10-17 17:24 | RADRPT ---
EXAM DATE/TIME: 10/17/2017 17:08 [facility] COMPARISON: CHEST SINGLE AP, August 18, 2017, 3:35. INDICATIONS : Short of breath. MEDICAL HISTORY : Congestive heart failure. SURGICAL HISTORY : Pacemaker. ENCOUNTER: Initial ACUITY: 3 days PAIN SCORE: 0/10 LOCATION: Bilateral chest FINDINGS: Pacemaker device is noted with control pack over the left chest. Lungs are focally clear. No effusion is present. Cardiac contours are satisfactory for technique and projection. CONCLUSION: No acute disease Mason Joseph MD on October 17, 2017 at 17:22 Board Certified Radiologist. This report was verified electronically.
[2017-10-17] MEDS ORDERED: RESP: ALBUTEROL 2.5 MG/IPRATROPIUM 0.5 MG NEB (SCH) NEB ONE (18:15)
[2017-10-17 18:40] VITALS: BP 112/51; PULSE 93; RESP 22; O2SAT 96
[2017-10-17] MEDS ORDERED: PRED50 PO (19:13)
[2017-10-17 19:30] VITALS: BP 112/62; TEMP 98.4
--- NOTE | 2017-10-18 22:48 | EKG ---
Date Performed: 10/17/2017 Time Performed: 16:40:13 PTAGE: 77 years EKG: ELECTRONIC VENTRICULAR PACEMAKER ABNORMAL RHYTHM ECG PREVIOUS TRACING : 08/17/2017 07.34 Since the previous tracing, no significant change noted DOCTOR: Latesha Mccain Interpretating Date/Time 10/18/2017 22:46:48
== END 2017-10-17 19:30 | disposition home or self-care (01) ==
LOC: PHED 15:55
DX: J44.1 Chronic obstructive pulmonary disease with (acute) exacerbation (principal); E78.00 Pure hypercholesterolemia, unspecified; I11.0 Hypertensive heart disease with heart failure; I50.9 Heart failure, unspecified; I25.10 Atherosclerotic heart disease of native coronary artery without angina pectoris; E03.9 Hypothyroidism, unspecified; M19.90 Unspecified osteoarthritis, unspecified site; K21.9 Gastro-esophageal reflux disease without esophagitis; Z95.0 Presence of cardiac pacemaker; Z79.82 Long term (current) use of aspirin; Z72.0 Tobacco use
CPT/HCPCS: 71045; 80053; 83880; 84484; 85025; 85610; 85730; 93005; 94640; 94664; 96374; 99285; J2930

== ENCOUNTER 2017-12-18 13:07 | Emergency (ER) | payer OTHER ==
[~2017-12-18 13:07] MED LIST changes: -AZIT500T2 PO; +LISI-519 PO; -NICO21DI25 T-DERMAL; -OSEL75 PO; +PRED50 PO
--- NOTE | 2017-12-18 13:13 | PD ---
HPI Chief Complaint: Shortness of breath Time Seen by Provider: 13:13 Travel History International Travel<30 days: No Contact w/Intl Traveler<30days: No Traveled to known affect area: No History of Present Illness HPI 77-year-old female came to the emergency room with history of progressive shortness of breath for past 2 days. Patient has history of congestive heart failure as well as COPD. She requires 2 L of oxygen at home. She takes usually 40 mg of Lasix once a day but for past couple days has been taking an extra 20 mg in the afternoon. However symptoms did not improve. No history of chest pain. She has noticed some associated ankle swelling although today she says it looks a little better. Vital signs were relatively stable in triage. Patient takes aspirin every day but no other blood thinners. She says she has been coughing and getting mostly foamy sputum. No history of hemoptysis. No history of fever or chills. Her hand tube bender is Dr. Novak and chemistry research assistant is Dr. Rivera. Patient has a pacemaker. Patient has been a smoker from the age of 18 and quit just 1 month ago. [facility] Past Medical History Narrative Medical List of her past medical, surgical, social and family history is reviewed from the nursing note. Hx Anticoagulant Therapy: Yes (asa 81mg) Arthritis: Yes Asthma: No Autoimmune Disease: No Anxiety: No Depression: No Heart Rhythm Problems: No Cancer: No Cardiovascular Problems: Yes (pacemaker, defib, GA) High Cholesterol: Yes Chest Pain: No Congestive Heart Failure: Yes COPD: Yes (2L O2 dependent at home) Cerebrovascular Accident: No Coronary Artery Disease: Yes Diabetes: No Diminished Hearing: Yes (SAX[place]) Endocrine: No Gastrointestinal Disorders: Yes GERD: Yes Genitourinary: No Headaches: No Hiatal Hernia: No Heparin Induced Thrombocytopen: No Hypertension: Yes Immune Disorder: No Implanted Vascular Access Dvce: No Musculoskeletal: Yes Neurologic: Yes Psychiatric: No Reproductive: No Respiratory: Yes Migraines: No Seizures: No Sickle Cell Disease: No Sleep Apnea: No Thyroid Disease: Yes (hypo) Ulcer: No Menopausal: Yes Tubal Ligation: Yes Past Surgical History Abdominal Surgery: Yes (APPENDIX, GALL BLADDER) AICD: No Appendectomy: Yes Arteriovenous Shunt: No Cardiac Surgery: Yes (bilateral leg veins stripped ' PACER) Cholecystectomy: Yes Ear Surgery: No Endocrine Surgery: No Eye Surgery: Yes (EYE SURGERY A CHILD, cataracts) Genitourinary Surgery: Yes (BLADDER REPAIR) Gynecologic Surgery: Yes (TUBAL) Insulin Pump: No Joint Replacement: No Neurologic Surgery: No Oral Surgery: Yes (TONSILS REMOVED) Pacemaker: No Thoracic Surgery: No Tonsillectomy: Yes Other Surgery: Yes Social History Alcohol Use: No Tobacco Use: Yes () Substance Use: No Allergies-Medications (Allergen,Severity, Reaction): Coded Allergies: tetanus toxoid, adsorbed (Verified Allergy, Intermediate, RASH, 12/18/17) bupropion (Verified Allergy, Unknown, 12/18/17) shellfish derived (Verified Allergy, Unknown, 12/18/17) Uncoded Allergies: MUSCLE RELAXERS (Allergy, Intermediate, RASH, 10/17/17) .. Comments List of her allergies reviewed from the nursing note. Reported Meds & Prescriptions Reported Meds & Active Scripts Active Prednisone 20 Mg Tab 20 Mg PO BID 5 Days Prednisone 50 Mg Tab 50 Mg PO DAILY 3 Days Potassium Chloride ER (Potassium Chloride) 10 Meq Cap 10 Meq PO DAILY take one cap every 48 hours meaning every other day. Reported Lisinopril 5 Mg Tab 5 Mg PO DAILY [Home Oxygen] 2 Liter MARIANELA.CANULA HS Albuterol Neb (Albuterol Sulfate) 0.63 Mg/3 Ml Neb 0.63 Mg NEB Q6HR NEB PRN Advair Hfa 12 GM Inh (Fluticasone-Salmeterol 12 GM Inh) 115-21 Mcg/Act Aer 2 Puff INH BID Metoprolol Tartrate 25 Mg Tab 12.5 Mg PO BID Aspirin 81 Mg Chew 81 Mg CHEW DAILY Ranitidine (Ranitidine HCl) 150 Mg Tab 150 Mg PO BID Furosemide 20 Mg Tab 20 Mg PO DAILY Narrative Medication List of her home medications reviewed from the nursing note. Review of Systems Except as stated in HPI: all other systems reviewed are Neg Respiratory: Positive: Shortness of Breath Musculoskeletal: Positive: Edema Physical Exam Narrative GENERAL: Awake, alert, moderate distress SKIN: Focused skin assessment warm/dry. HEAD: Atraumatic. Normocephalic. EYES: Pupils equal and round. No scleral icterus. No injection or drainage. ENT: No nasal bleeding or discharge. Mucous membranes pink and moist. NECK: Trachea midline. No JVD. CARDIOVASCULAR: Regular rate and rhythm. No murmur appreciated. RESPIRATORY: Tachypnea. Diminished air entry bilaterally with an expiratory wheeze and fine crackles mostly in the bases. GASTROINTESTINAL: Abdomen soft, non-tender, nondistended. Hepatic and splenic margins not palpable. MUSCULOSKELETAL: No obvious deformities. No clubbing. No cyanosis. No edema. NEUROLOGICAL: Awake and alert. No obvious cranial nerve deficits. Motor grossly within normal limits. Normal speech. PSYCHIATRIC: Appropriate mood and affect; insight and judgment normal. Data Data Last Documented VS Vital Signs Date Time Temp Pulse Resp B/P (MAP) Pulse Ox O2 Delivery O2 Flow Rate FiO2 12/18/17 15:45 12/18/17 14:36 72 18 97 Nasal Cannula 2.00 12/18/17 13:46 98.0 Orders Orders Complete Blood Count With Diff (12/18/17 13:19) Basic Metabolic Panel (Bmp) (12/18/17 13:19) B-Type Natriuretic Peptide (12/18/17 13:19) Prothrombin Time / Inr (Pt) (12/18/17 13:19) Magnesium (Mg) (12/18/17 13:19) Troponin I (12/18/17 13:19) Urinalysis - C+S If Indicated (12/18/17 13:19) Iv Access Insert/Monitor (12/18/17 13:19) Electrocardiogram (12/18/17 13:19) Ecg Monitoring (12/18/17 13:19) Oximetry (12/18/17 13:19) Oxygen Administration (12/18/17 13:19) Chest, Single Ap (12/18/17 13:19) Sodium Chloride 0.9% Flush (Ns Flush) (12/18/17 13:30) Methylprednisolone So Succ Inj (Solumedr (12/18/17 13:30) Albuterol-Ipratropium Neb (Duoneb Neb) (12/18/17 13:30) Albuterol-Ipratropium Neb (Duoneb Neb) (12/18/17 14:30) Ed Discharge Order (12/18/17 15:29) Labs Laboratory Tests Test 12/18/17 13:25 12/18/17 14:15 White Blood Count 5.3 TH/MM3 Red Blood Count 4.53 MIL/MM3 Hemoglobin 10.4 GM/DL Hematocrit 33.8 % Mean Corpuscular Volume 74.6 FL Mean Corpuscular Hemoglobin 23.0 PG Mean Corpuscular Hemoglobin Concent 30.8 % Red Cell Distribution Width 14.9 % Platelet Count 227 TH/MM3 Mean Platelet Volume 7.2 FL Neutrophils (%) (Auto) 56.9 % Lymphocytes (%) (Auto) 24.3 % Monocytes (%) (Auto) 11.0 % Eosinophils (%) (Auto) 6.4 % Basophils (%) (Auto) 1.4 % Neutrophils # (Auto) 3.0 TH/MM3 Lymphocytes # (Auto) 1.3 TH/MM3 Monocytes # (Auto) 0.6 TH/MM3 Eosinophils # (Auto) 0.3 TH/MM3 Basophils # (Auto) 0.1 TH/MM3 CBC Comment AUTO DIFF Differential Comment AUTO DIFF CONFIRMED Platelet Estimate NORMAL Platelet Morphology Comment NORMAL Prothrombin Time 10.6 SEC Prothromb Time International Ratio 1.0 RATIO Blood Urea Nitrogen 25 MG/DL Creatinine 0.88 MG/DL Random Glucose 122 MG/DL Calcium Level 9.0 MG/DL Magnesium Level 2.2 MG/DL Sodium Level 140 MEQ/L Potassium Level 4.1 MEQ/L Chloride Level 104 MEQ/L Carbon Dioxide Level 30.8 MEQ/L Anion Gap 5 MEQ/L Estimat Glomerular Filtration Rate 62 ML/MIN Troponin I LESS THAN 0.02 NG/ML B-Type Natriuretic Peptide 18 PG/ML Urine Collection Type VOIDED Urine Color STRAW Urine Turbidity CLEAR Urine pH 5.5 Urine Specific [place] 1.010 Urine Protein NEG mg/dL Urine Glucose (UA) NEG mg/dL Urine Ketones NEG mg/dL Urine Occult Blood NEG Urine Nitrite NEG Urine Bilirubin NEG Urine Urobilinogen 0.2 MG/DL Urine Leukocyte Esterase NEG Urine Squamous Epithelial Cells 0-3 /hpf Urine Hyaline Casts 0-2 /lpf Urine Mucus OCC /lpf Microscopic Urinalysis Comment CULT NOT INDICATED MDM Medical Decision Making Medical Screen Exam Complete: Yes Emergency Medical Condition: Yes Medical Record Reviewed: Yes Interpretation(s) Twelve-lead EKG was reviewed by me. Paced rhythm, tachycardia. Heart rate of 103 bpm. Differential Diagnosis Congestive heart failure, OPD exacerbation, pleural effusion, pneumonia Narrative Course 1:33 PM patient is getting 1 DuoNeb and IV Solu-Medrol. Awaiting for blood test and chest x-ray to be resulted. Based on that I will add a dose of Lasix or not. I will reassess her in a bit. 2:32 PM blood test results are back and the BNP and chest x-ray are both suggestive of possible COPD exacerbation for the shortness of breath and not congestive heart failure. I have ordered for 2 more DuoNeb's. I went back and reassessed the patient after she received her first DuoNeb and she said she was feeling better and the chest tightness and shortness of breath was getting better. I might be able to discharge her home if she continues to improve. 2:50 PM all the test results are back and within acceptable limits. After patient finishes with the breathing treatment I have asked the nurse to ambulate the patient with 2 L of oxygen. If she does not get hypoxic I will be able to discharge her home. 3:29 PM patient ambulated well in the emergency room with the 2 L of oxygen and oxygen saturation was up to 96%. Patient did not get extremely short of breath. I am comfortable discharging her home. Procedures EKG Prior to Arrival: No Diagnosis Primary Impression: Acute exacerbation of chronic obstructive pulmonary disease (COPD) Additional Impression: Shortness of breath Referrals: Primary Care Physician 2 days Additional Instructions: Please follow-up with your primary care physician and or Dr. Rivera in next 2-3 days. Use your albuterol inhaler 2 puffs every 6 hours for next 24-48 hours. Take the medication as per the prescription direction. Return to the emergency room if the condition worsens or any other new concerns. Med/Other Pt SpecificInfo: Prescription(s) given Scripts Prednisone (Prednisone) 20 Mg Tab 20 MG PO BID for 5 Days, #10 TAB 0 Refills Prov: Akash Dodd MD 12/18/17 Disposition: 01 DISCHARGE HOME Condition: Stable Akash Dodd MD December 18, 2017 13:13
[2017-12-18 13:14] VITALS: BP 120/51; PULSE 115; RESP 22; TEMP 98; O2SAT 88
[2017-12-18] MEDS ORDERED: RESP: ALBUTEROL 2.5 MG/IPRATROPIUM 0.5 MG NEB (SCH) INH ONE (13:30)
[2017-12-18] MEDS ORDERED: SODIUM CHLORIDE 0.9% FLUSH 10 ML FLUSH IVF PRN (13:30)
[2017-12-18] MEDS ORDERED: methylPREDNISolone SOD SUCC 125 MG/2 ML VIAL IV PUSH ONE (13:30)
[2017-12-18 13:33] VITALS: O2SAT 94
[2017-12-18 13:38] LABS: BASOPHIL # 0.1 TH/MM3 (0-0.2); BASOPHIL % 1.4 % (0.0-2.0); EOSINOPHIL # 0.3 TH/MM3 (0-0.4); EOSINOPHIL % 6.4 % (0.0-4.0); HEMATOCRIT 33.8 % (35.0-46.0); HEMOGLOBIN 10.4 GM/DL (11.6-15.3); LYMPH % 24.3 % (9.0-44.0); LYMPHOCYTE # 1.3 TH/MM3 (1.0-4.8); MEAN CELL VOLUME 74.6 FL (80.0-100.0); MEAN CORPUSCULAR HGB CONC 30.8 % (32.0-36.0); MEAN PLATELET VOLUME 7.2 FL (7.0-11.0); MONOCYTE # 0.6 TH/MM3 (0-0.9); NEUT % 56.9 % (16.0-70.0); PLATELET COUNT 227 TH/MM3 (150-450); RED BLOOD COUNT 4.53 MIL/MM3 (4.00-5.30); RED CELL DISTRIBUTION WIDTH 14.9 % (11.6-17.2); WHITE BLOOD COUNT 5.3 TH/MM3 (4.0-11.0)
[2017-12-18 13:46] VITALS: BP 106/59; PULSE 90; RESP 22; TEMP 98; O2SAT 96
--- NOTE | 2017-12-18 14:03 | RADRPT ---
EXAM DATE: 12/18/2017 1:47 PM EDT AGE/SEX: 77 years / Female INDICATIONS: Short of breath. CLINICAL DATA: This is the patient's initial encounter. Patient reports that signs and symptoms have been present for 2 days and indicates a pain score of 0/10. MEDICAL/SURGICAL HISTORY: Congestive heart failure. Pacemaker. COMPARISON: PO, CHEST SINGLE AP, 10/17/2017. . FINDINGS: A single AP view of the chest demonstrates the lungs to be symmetrically aerated without evidence of mass, infiltrate or effusion. Left-sided pacemaker. The cardiomediastinal contours are unremarkable. Osseous structures are intact. CONCLUSION: No acute cardiopulmonary disease Electronically signed by: Parviz Wilkerson MD 12/18/2017 2:02 PM EDT
[2017-12-18 14:09] LABS: CHLORIDE 104 MEQ/L (98-107); SODIUM (NA) 140 MEQ/L (136-145)
[2017-12-18 14:12] LABS: BICARBONATE 30.8 MEQ/L (21.0-32.0); BLOOD UREA NITROGEN 25 MG/DL (7-18); GLUCOSE,RANDOM 122 MG/DL (74-106); MAGNESIUM 2.2 MG/DL (1.5-2.5)
[2017-12-18 14:15] LABS: CREATININE 0.88 MG/DL (0.50-1.00); GLOMERULAR FILTRATION RATE 62 ML/MIN (>89)
[2017-12-18 14:20] LABS: TROPONIN I LESS THAN 0.02 NG/ML (0.02-0.05)
[2017-12-18 14:27] LABS: PROTHROMBIN TIME - PATIENT 10.6 SEC (9.8-11.6)
[2017-12-18 14:31] LABS: BILIRUBIN, URINE NEG (NEG); BLOOD, URINE NEG (NEG); GLUCOSE,URINE NEG (NEG); KETONE, URINE NEG (NEG); NITRITE,URINE NEG (NEG); PH, URINE 5.5 (5.0-8.5); URINE LEUKOCYTE ESTERASE NEG (NEG)
[2017-12-18 14:32] LABS: URINE COLOR STRAW (YELLW/STRAW)
[2017-12-18 14:36] VITALS: BP 107/44; PULSE 72; RESP 18; O2SAT 97
[2017-12-18] MEDS: RESP: ALBUTEROL 2.5 MG/IPRATROPIUM 0.5 MG NEB (SCH) INH ×2 (14:39→14:40)
[2017-12-18 14:47] LABS: HYALINE CAST, URINE 0-2 /lpf (RARE)
[2017-12-18 14:48] LABS: MUCUS URINE OCC /lpf (OCC); SQUAMOUS EPITHELIAL CELL URINE 0-3 /hpf (0-5)
[2017-12-18] MEDS ORDERED: PRED20 PO (15:31)
--- NOTE | 2017-12-19 14:08 | EKG ---
Date Performed: 12/18/2017 Time Performed: 13:14:51 PTAGE: 77 years EKG: ELECTRONIC VENTRICULAR PACEMAKER ABNORMAL RHYTHM ECG PREVIOUS TRACING : 10/17/2017 16.40 Since the previous tracing, no significant change noted DOCTOR: Bharathi Groves Interpretating Date/Time 12/19/2017 14:03:08
== END 2017-12-18 15:46 | disposition home or self-care (01) ==
LOC: PHED 13:07
DX: J44.1 Chronic obstructive pulmonary disease with (acute) exacerbation (principal); I11.0 Hypertensive heart disease with heart failure; I50.9 Heart failure, unspecified; K21.9 Gastro-esophageal reflux disease without esophagitis; E78.00 Pure hypercholesterolemia, unspecified; I25.10 Atherosclerotic heart disease of native coronary artery without angina pectoris; E03.9 Hypothyroidism, unspecified; F17.200 Nicotine dependence, unspecified, uncomplicated; Z99.81 Dependence on supplemental oxygen
CPT/HCPCS: 71045; 80048; 81001; 83735; 83880; 84484; 85025; 85610; 93005; 94640; 94664; 96374; 99285; J2930